=== PATIENT | male | born 1940 | race Caucasian/White ===

== ENCOUNTER 2018-08-28 17:20 | Inpatient (IN) ==
--- NOTE | 2018-08-29 00:02 | P.HPCC ---
History of Present Illness Primary Care Physician: Chano Painting History of Present Illness: 77-year-old gentleman with a known history of systolic congestive heart failure presented to emergency room at [facility] August 06, 2018 with complaints of palpitation and shortness of breath. Upon arrival to emergency room there he was found to be in A. fib with RVR. His heart rate was in 130s, he was given 1 time dose of IV diltiazem with significant improvement in his overall heart rate. He was again found to be in the acute on chronic congestive heart failure. He was given a dose of IV Lasix with improvement of his breathing but continued to require some oxygen support and subsequently been admitted to the hospital for additional evaluation and management. He has a long-standing history of atrial fibrillation on Coumadin. His echocardiogram showed ejection fraction of 30-35% with severe aortic stenosis and moderate MR. His hospital course was complicated with acute kidney injury, bradycardia, cardiogenic shock, respiratory failure requiring intubation, and the shock liver. He had a angiogram of his coronaries on 08/13 that showed no significant coronary disease. Apparently the patient became severely bradycardic in the Road Maker received atropine, followed by temporary intravenous pacemaker placement. He has arrived in the ICU at [facility] agitated and hypoxemic requiring intubation. Later on he underwent permanent pacemaker placement and successful weaning of the ventilation with extubation. However he has failed swallow evaluation and has been fed with Dobbhoff. 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 Sargent. Inpatient Certification: I certify that the inpatient services were ordered in accordance with Medicare regulations governing the order. This includes certification that hospital inpatient services are reasonable and necessary and in the case of services not specified as inpatient-only under 42 CFR 419.22(n), that they are appropriately provided as inpatient services in accordance to with the 2-midnight benchmark under 43 CFR 412.3(e) Review of Systems All other systems reviewed negative except as stated in HPI [facility] - Medical History Medical History: Medical History (Last Updated 08/29/18 @ 05:02 by George Daly MD) A-fib COPD (chronic obstructive pulmonary disease) Diabetes mellitus Nephrolithiasis Normal coronary angiogram Psoriasis - Surgical History Surgical History: Surgical History (Last Updated 08/29/18 @ 05:02 by George Daly MD) H/O cystoscopy - Family History Family History: Family History (Last Updated 08/29/18 @ 05:02 by George Daly MD) Other Family history normal Medications and Allergies Active Medications: Current Medications Acetaminophen (Tylenol) 650 mg PO Q6H PRN PRN Reason: PAIN 1-10 AND/OR FEVER >101F Al Hydroxide/Mg Hydroxide (Milk Of Magnesia Liq) 30 ml PO Q12H PRN PRN Reason: Mild Constipation Albuterol (Duoneb Neb (Prn)) 1 ampul NEB Q2HR NEB PRN PRN Reason: WHEEZING Aspirin (Ecotrin) 81 mg PO DAILY TONY Bisacodyl (Dulcolax Supp) 10 mg RECTAL DAILY PRN PRN Reason: SEVERE CONSITIPATION Chlorhexidine Gluconate (Chlorhexidine 2% Cloth) 3 pack TOPICAL DAILY@0400 TONY Stop: 09/03/18 03:59 Chlorhexidine Gluconate (Chlorhexidine 2% Cloth) 3 pack TOPICAL DAILY@0400 PRN PRN Reason: Extra cloth needed Stop: 09/03/18 03:59 Dextrose (D50w Vial) 50 ml IV.PUSH UNSCH PRN PRN Reason: PER HYPOGLYCEMIA PROTOCOL Diltiazem HCl (Cardizem Cd 24hr) 120 mg PO DAILY TONY Famotidine (Pepcid Pf Inj) 20 mg IV.PUSH Q12HR TONY Folic Acid (Folic Acid) 1 mg PO DAILY [facility] Furosemide (Lasix) 20 mg PO DAILY [facility] Glucagon (Glucagon Inj) 1 mg OTHER PRN PRN PRN Reason: for Hypoglycemia Protocol Sodium Chloride (Ns Inj) 1,000 mls @ 84 mls/hr IV.CONT .[id number] [facility] Last Admin: 08/29/18 02:34 Dose: 84 mls/hr Argatroban 250 mg/ Sodium (Chloride) 250 mls @ 0 mls/hr IV.CONT TITRATE PRN; Protocol PRN Reason: Per Protocol Insulin Aspart (Novolog Insulin Correctional Sugar Inj) 0 unit SQ Q6HR [facility]; Protocol Lactulose (Lactulose Liq) 30 ml PO DAILY PRN PRN Reason: SEVERE CONSITIPATION Lisinopril (Prinivil) 20 mg PO DAILY TONY Methotrexate (Rheumatrex) 15 mg PO UNSCH PRN PRN Reason: SEE LABEL COMMENTS Morphine Sulfate (Morphine Inj) 2 mg IV.PUSH Q2H PRN PRN Reason: PAIN SCALE 6 TO 10 Ondansetron HCl (Zofran Inj) 4 mg IV.PUSH Q6H PRN PRN Reason: NAUSEA OR VOMITING Senna/Docusate Sodium (Georgiana-Colace) 1 tab PO BID [facility] Sennosides (Senokot) 17.2 mg PO Q12H PRN PRN Reason: Moderate Constipation Sodium Chloride (Ns Flush) 2 ml IV.FLUSH BID TONY Sodium Chloride (Ns Flush) 2 ml IV.FLUSH PRN PRN PRN Reason: FLUSH AFTER USING IV ACCESS Vitamin D (Vitamin D3) 1,000 unit PO DAILY [facility] Allergies Allergy/AdvReac Type Severity Reaction Status Date / Time gemfibrozil Allergy Redness of Verified 08/29/18 00:15 Skin Home Medications Medication Instructions Recorded Confirmed Type aspirin 81 mg PO DAILY 08/29/18 08/29/18 History cholecalciferol (vitamin D3) 1,000 unit PO DAILY 08/29/18 08/29/18 History [Vitamin D3] diltiazem HCl 120 mg PO DAILY 08/29/18 08/29/18 History fenofibrate PO DAILY 08/29/18 History folic acid 1 mg PO DAILY 08/29/18 08/29/18 History furosemide 20 mg PO DAILY 08/29/18 08/29/18 History lisinopril 20 mg PO DAILY 08/29/18 08/29/18 History metformin 500 mg PO QPM 08/29/18 08/29/18 History methotrexate sodium 15 mg PO DAILY 08/29/18 08/29/18 History umeclidinium-vilanterol [Anoro 1 inh INHALATION Q24H 08/29/18 08/29/18 History Ellipta] warfarin 2.5 mg PO DAILY 08/29/18 08/29/18 History Results - Labs CBC & Chem 7: 08/29/18 02:20 08/29/18 02:20 Exam - Constitutional no acute distress - Routine HEENT Exam Head: Present: normocephalic, atraumatic Eye: Present: PERRL ENT: Present: mucous membranes moist - Routine Neck Exam Present: supple, full ROM. Absent: JVD, carotid bruit - Routine Chest/Breast/Axilla Exam Chest wall: Absent: tenderness - Routine Respiratory Exam Absent: accessory muscle use, rales, rhonchi - Routine Cardiovascular Exam Present: irregularly irregular - Routine Abdominal Exam Present: soft, normoactive bowel sounds. Absent: tenderness, distended - Routine Extremities Exam Absent: cyanosis, clubbing, edema - Routine Skin Exam Present: intact. Absent: cyanosis, erythema - Routine Neurological Exam Present: alert, moving all extremities Septic Shock Reassessment Septic shock perfusion: reassessment completed Caprini VTE Risk Assessment Caprini VTE Risk Assessment: Moderate/High Risk (score >= 2) Caprini Risk Assessment Model: Point Value = 1 Point Value = 2 Point Value = 3 Point Value = 5 Age 41-60 Minor surgery BMI > 25 kg/m2 Swollen legs Varicose veins or History of unexplained or recurrent spontaneous Oral contraceptives or hormone replacement Sepsis (< 1 month) Serious lung disease, including pneumonia (< 1 month) Abnormal pulmonary function Acute myocardial infarction Congestive heart failure (< 1 month) History of inflammatory bowel disease Medical patient at bed rest Age 61-74 Arthroscopic surgery Major open surgery (> 45 min) Laparoscopic surgery (> 45 min) Malignancy Confined to bed (> 72 hours) Immobilizing plaster cast Central venous access Age >= 75 History of VTE Family history of VTE Factor V Leiden Prothrombin [id number] Lupus anticoagulant Anticardiolipin antibodies Elevated serum homocysteine Heparin-induced thrombocytopenia Other congenital or acquired thrombophilia Stroke (< 1 month) Elective arthroplasty Hip, pelvis, or leg fracture Acute spinal cord injury (< 1 month) Prophylaxis Regimen: Total Risk Factor Score Risk Level Prophylaxis Regimen 0-1 Low Early ambulation 2 Moderate Order ONE of the following: *Sequential Compression Device (SCD) *Heparin 5000 units SQ BID 3-4 Higher Order ONE of the following medications: *Heparin 5000 units SQ TID *Enoxaparin/Lovenox 40 mg SQ daily (WT < 150 kg, CrCl > 30 mL/min) *Enoxaparin/Lovenox 30 mg SQ daily (WT < 150 kg, CrCl > 10-29 mL/min) *Enoxaparin/Lovenox 30 mg SQ BID (WT < 150 kg, CrCl > 30 mL/min) AND/OR *Sequential Compression Device (SCD) 5 or more Highest Order ONE of the following medications: *Heparin 5000 units SQ TID (Preferred with Epidurals) *Enoxaparin/Lovenox 40 mg SQ daily (WT < 150 kg, CrCl > 30 mL/min) *Enoxaparin/Lovenox 30 mg SQ daily (WT < 150 kg, CrCl > 10-29 mL/min) *Enoxaparin/Lovenox 30 mg SQ BID (WT < 150 kg, CrCl > 30 mL/min) AND *Sequential Compression Device (SCD) Assessment and Plan - Assessment and Plan Plan: Severe aortic stenosis -2D echo pending -Workup with further management per Dr. Arie Suresh fib -Rate controlled with diltiazem -Argatroban anticoagulation due to history of CARLEE Diabetes mellitus -Glucerna tube feeds -Insulin sliding scale CHF -Lasix -Lisinopril -Strict I's and O's Psoriasis -Methotrexate DVT GI prophylaxis -Teds SCDs -Argatroban -Pepcid Level 2
[2018-08-29] MEDS ORDERED: Morphine Sulfate Inj 2 MG/ML Vial IV.PUSH PRN (00:55)
[2018-08-29] MEDS ORDERED: Warfarin Consult Pharmacy OTHER PRN (00:55)
[2018-08-29] MEDS ORDERED: Bisacodyl 10 MG Supp RECTAL PRN (00:55)
[2018-08-29] MEDS ORDERED: Sod Chloride 0.9% Inj 1,000 ML IV.CONT SCH (01:00)
[2018-08-29] MEDS ORDERED: Dextrose 50% in Water 50 ML Vial IV.PUSH PRN (01:44)
[2018-08-29 02:41] LABS: Baso # (Auto) 0.1 th/mm3 (0.0-0.2); Eos # (Auto) 0.1 th/mm3 (0.0-0.4); Eos % (Auto) 1.6 % (0.0-4.0); Hematocrit 43.1 % (39.0-51.0); Lymph # (Auto) 1.1 th/mm3 (1.0-4.8); Lymph % (Auto) 12.1 % (9.0-44.0); Mean Corpuscular HGB Conc 32.6 % (32.0-36.0); Mean Corpuscular Hemoglobin 32.4 pg (27.0-34.0); Mean Corpuscular Volume 99.6 fL (80.0-100.0); Mean Platelet Volume 9.6 fL (7.0-11.0); Mono # (Auto) 0.6 th/mm3 (0.0-0.9); Mono % (Auto) 6.7 % (0.0-8.0); Neut % (Auto) 78.6 % (16.0-70.0); Platelet Count 284 th/mm3 (150-450); Red Blood Count 4.33 mil/mm3 (4.50-5.90); Red Cell Distribution Width 15.6 % (11.6-17.2); White Blood Count 8.9 th/mm3 (4.0-11.0)
[2018-08-29 02:53] LABS: Activated Partial Thrombo Time 45.5 sec (23.4-31.7); INR 1.9 Ratio
[2018-08-29 02:54] LABS: Alanine Aminotransferase 44 U/L (12-78); Albumin 2.4 g/dL (3.4-5.0); Anion Gap 8 meq/L (5-15); Aspartate Aminotransferase 41 U/L (15-37); Blood Urea Nitrogen 23 mg/dL (7-18); Calcium 7.8 mg/dL (8.5-10.1); Carbon Dioxide 25.9 meq/L (21.0-32.0); Chloride 112 meq/L (98-107); Glomerular Filtration Rate 76 mL/min (>89); Glucose,Random 79 mg/dL (74-106); Magnesium 2.1 mg/dL (1.5-2.5); Phosphorus 2.8 mg/dL (2.5-4.9); Potassium 3.5 meq/L (3.5-5.1); Sodium 146 meq/L (136-145)
[2018-08-29 02:56] LABS: Alkaline Phosphatase 137 U/L (45-117); Total Protein 6.6 g/dL (6.4-8.2)
[2018-08-29] MEDS ORDERED: Chlorhexidine Gluconate 2% 1 Pack (2 Cloths) TOPICAL PRN (04:00)
[2018-08-29] MEDS: Chlorhexidine Gluconate 2% 1 Pack (2 Cloths) TOPICAL SCH (05:59)
[2018-08-29] MEDS: Argatroban Inj 250 MG in Sodium Chlor 0.9% Inj 247.5 ML IV.CONT PRN (05:59)
[2018-08-29] MEDS: Insulin NovoLOG Aspart Correctional Sugar Inj SQ SCH ×3 (05:59→18:25)
--- NOTE | 2018-08-29 08:43 | XR ---
EXAM DATE: 08/29/2018 8:38 AM EST AGE/SEX: 77 years / Male INDICATIONS: Shortness of breath. CLINICAL DATA: This is the patient's initial encounter. Patient reports that signs and symptoms have been present for 1 day and indicates a pain score of Nonresponsive. MEDICAL/SURGICAL HISTORY: Chronic obstructive pulmonary disease. Diabetes. AFIB. Pacemaker. COMPARISON: No prior exams available for comparison. FINDINGS: Pacemaker on the left. I think there is a feeding tube evident however do not see the distal tip. The heart is enlarged. Mild interstitial edema is present Minimal consolidative changes left base. CONCLUSION: Cardiomegaly with probable mild congestive failure. I cannot see the tip of what I think is a feeding tube. Electronically signed by: Gabriel Quintanilla MD 08/29/2018 8:41 AM EST
[2018-08-29] MEDS ORDERED: METHOTREXATE SODIUM 15 MG PO SCH (09:00)
[2018-08-29] MEDS ORDERED: dilTIAZem CD 120 MG Capsule PO SCH (09:00)
[2018-08-29] MEDS: Lisinopril 20 MG Tablet PO SCH ×2 (09:39→12:35)
[2018-08-29] MEDS: Furosemide 20 MG Tablet PO SCH ×2 (09:40→12:34)
[2018-08-29] MEDS: Famotidine PF Inj 20 MG/2 ML Vial IV.PUSH SCH ×2 (09:40→21:50)
[2018-08-29] MEDS: Senna/Docusate Sodium 8.6/50 MG Tablet PO SCH ×3 (09:40→21:50)
[2018-08-29] MEDS: Folic Acid 1 MG Tablet PO SCH ×2 (09:40→12:34)
--- NOTE | 2018-08-29 11:31 | XR ---
EXAM DATE: 08/29/2018 11:18 AM EST AGE/SEX: 77 years / Male INDICATIONS: Verification of Dobbhoff feeding tube placement. Known renal calculi and abdominal aort ic aneurysm. CLINICAL DATA: This is the patient's initial encounter. Patient reports that signs and symptoms have been present for 1 day and indicates a pain score of Nonresponsive. MEDICAL/SURGICAL HISTORY: None. None. COMPARISON: [facility], CT ABDOMEN AND PELVIS W/O CONTRAST, 03/15/2016. . FINDINGS: A single AP view of the abdomen and pelvis was obtained and demonstrates gas and stool about the col on. There are multiple loops of nondilated air-containing small bowel. Bilateral renal calculi are pr esent right greater than left. There is a Dobbhoff type feeding tube in the distal stomach. A transve nous pacer is noted. The bony structures are intact. Atherosclerotic calcifications are present in th e aorta with calcification in the known aneurysm. This is not well delineated. CONCLUSION: 1. Dobbhoff feeding tube with the tip at the level of the distal stomach. 2. Visualization of the known abdominal aortic aneurysm. 3. Bilateral renal calculi. Electronically signed by: Flaquito Thompson MD 08/29/2018 11:30 AM EST
--- NOTE | 2018-08-29 12:13 | P.DIET ---
Nutritional Evaluation Type of nutrition evaluation: initial Nutrition consult regarding: Tube Feeding Screening comments: Transferred from [facility] on TF Objective - Diagnosis Aortic Stenosis - Objective % IBW: 97 (IBW = 166#) Body Weight Used for Calculations: Actual (73.5 kg) Energy Needs - Lower Range (kCal/kg): 28 Energy Needs - Upper Range (kCal/kg): 32 Lower Limit kCal/kg (kCals): 2,058 Upper Limit kCal/kg (kCals): 2,352 Lower Limit Protein Factor (Grams per Kg): 1.2 Upper Limit Protein Factor (Grams per Kg): 1.5 Lower Protein Needs (Protein): 88 Upper Protein Needs (Protein): 110 Dietitian Reviewed in Medical Record: Curent medications, Intake & Output, Labs , Medical history, Tube feeding Diet Order: NPO Assessment Assessment: Pt is at high nutrition risk 2' to his dependence on TFing. Current order is for Glucerna 1.5 @ 55 mls/hr. Recommend increase to 60 mls/hr to provide 2160 kcals, 119 gms protein and 1093 mls of free water. RD following. Recommendations: Glucerna 1.5 @ 60 mls/hr goal Dietitian to Monitor: Lab values, Intake & Output, Tube feeding tolerance, Weight change, Swallow recommendations, Medical course
--- NOTE | 2018-08-29 12:42 | P.CON ---
History of Present Illness Service: Cardiothoracic surgery Consult date: 08/29/18 Requesting Physician: Bernardo Sargent Reason for Consult: Severe aortic stenosis Primary Care Provider: Chano Painting Chief Complaint: Shortness of breath History of Present Illness: 77-year-old gentleman with a known history of congestive heart failure, nonischemic cardia myopathy, atrial fibrillation who was admitted to [facility] on August 05 with presenting complaints of progressive shortness of breath dizziness and weakness. He had a complicated and prolonged hospital course there with respiratory failure, cardiogenic shock, renal insufficiency necessitating intubation and mechanical ventilation as well as inotropic and pressor therapy. Additional workup in the hospital including cardiac catheter revealed no coronary artery disease however he had an intra-procedure cardiac arrest necessitating eventual permanent pacemaker placement. Following resolution of his acute events, he was extubated and was eventually transferred here to [facility] for further management of his aortic stenosis. I am now be consulted for surgical opinion regarding his aortic valvular pathology. At the present time he is hemodynamically stable however quite weak with poor memory retention and being fed via a Dobbhoff tube. Denies any specific chest pain or progressive shortness of breath. Review of Systems All other systems reviewed negative except as stated in HPI [facility] - History History Provided By: Patient, Significant Other - Medical History Medical History: Medical History (Last Updated 08/29/18 @ 05:02 by George Daly MD) A-fib COPD (chronic obstructive pulmonary disease) Diabetes mellitus Nephrolithiasis Normal coronary angiogram Psoriasis - Surgical History Surgical History: Surgical History (Last Updated 08/29/18 @ 05:02 by George Daly MD) H/O cystoscopy - Family History Family History: Family History (Last Updated 08/29/18 @ 05:02 by George Daly MD) Other Family history normal Medications and Allergies Active Medications: Active Medications Acetaminophen (Tylenol) 650 mg PO Q6H PRN PRN Reason: PAIN 1-10 AND/OR FEVER >101F Al Hydroxide/Mg Hydroxide (Milk Of Miranda [place]) 30 ml PO Q12H PRN PRN Reason: Mild Constipation Albuterol (Duoneb Neb (Prn)) 1 ampul NEB Q2HR NEB PRN PRN Reason: WHEEZING Aspirin (Ecotrin) 81 mg PO DAILY TONY Last Admin: 08/29/18 09:41 Dose: Not Given Bisacodyl (Dulcolax Supp) 10 mg RECTAL DAILY PRN PRN Reason: SEVERE CONSITIPATION Chlorhexidine Gluconate (Chlorhexidine 2% Cloth) 3 pack TOPICAL DAILY@0400 [facility] Stop: 09/03/18 03:59 Last Admin: 08/29/18 05:59 Dose: 3 pack Chlorhexidine Gluconate (Chlorhexidine 2% Cloth) 3 pack TOPICAL DAILY@0400 PRN PRN Reason: Extra cloth needed Stop: 09/03/18 03:59 Dextrose (D50w Vial) 50 ml IV.PUSH UNSCH PRN PRN Reason: PER HYPOGLYCEMIA PROTOCOL Diltiazem HCl (Cardizem Cd 24hr) 120 mg PO DAILY [facility] Last Admin: 08/29/18 11:41 Dose: Not Given Famotidine (Pepcid Pf Inj) 20 mg IV.PUSH Q12HR [facility] Last Admin: 08/29/18 09:40 Dose: 20 mg Folic Acid (Folic Acid) 1 mg PO DAILY [facility] Furosemide (Lasix) 20 mg PO DAILY [facility] Glucagon (Glucagon Inj) 1 mg OTHER PRN PRN PRN Reason: for Hypoglycemia Protocol Argatroban 250 mg/ Sodium (Chloride) 250 mls @ 0 mls/hr IV.CONT TITRATE PRN; Protocol PRN Reason: Per Protocol Last Titration: 08/29/18 09:54 Dose: 1.5 mcg/kg/min, 6.61 mls/hr Insulin Aspart (Novolog Insulin Correctional Sugar Inj) 0 unit SQ Q6HR [facility]; Protocol Last Admin: 08/29/18 05:59 Dose: Not Given Lactulose (Lactulose Liq) 30 ml PO DAILY PRN PRN Reason: SEVERE CONSITIPATION Lisinopril (Prinivil) 20 mg PO DAILY [facility] Methotrexate (Rheumatrex) 15 mg PO UNSCH PRN PRN Reason: SEE LABEL COMMENTS Morphine Sulfate (Morphine Inj) 2 mg IV.PUSH Q2H PRN PRN Reason: PAIN SCALE 6 TO 10 Ondansetron HCl (Zofran Inj) 4 mg IV.PUSH Q6H PRN PRN Reason: NAUSEA OR VOMITING Senna/Docusate Sodium (Georgiana-Colace) 1 tab PO BID [facility] Sennosides (Senokot) 17.2 mg PO Q12H PRN PRN Reason: Moderate Constipation Sodium Chloride (Ns Flush) 2 ml IV.FLUSH BID [facility] Last Admin: 08/29/18 11:41 Dose: 2 ml Sodium Chloride (Ns Flush) 2 ml IV.FLUSH PRN PRN PRN Reason: FLUSH AFTER USING IV ACCESS Vitamin D (Vitamin D3) 1,000 unit PO DAILY [facility] Allergies Allergy/AdvReac Type Severity Reaction Status Date / Time gemfibrozil Allergy Redness of Verified 08/29/18 00:15 Skin Home Medications Medication Instructions Recorded Confirmed Type aspirin 81 mg PO DAILY 08/29/18 08/29/18 History cholecalciferol (vitamin D3) 1,000 unit PO DAILY 08/29/18 08/29/18 History [Vitamin D3] diltiazem HCl 120 mg PO DAILY 08/29/18 08/29/18 History fenofibrate PO DAILY 08/29/18 History folic acid 1 mg PO DAILY 08/29/18 08/29/18 History furosemide 20 mg PO DAILY 08/29/18 08/29/18 History lisinopril 20 mg PO DAILY 08/29/18 08/29/18 History metformin 500 mg PO QPM 08/29/18 08/29/18 History methotrexate sodium 15 mg PO DAILY 08/29/18 08/29/18 History umeclidinium-vilanterol [Anoro 1 inh INHALATION Q24H 08/29/18 08/29/18 History Ellipta] warfarin 2.5 mg PO DAILY 08/29/18 08/29/18 History Physical Exam Vital signs: Vital Signs 08/28/18 22:00 08/28/18 23:00 08/29/18 03:47 Temperature 98 F Pulse Rate 80 81 81 Respiratory Rate 18 Blood Pressure 109/65 Pulse Oximetry 08/29/18 04:00 08/29/18 04:42 08/29/18 08:12 Temperature 98.4 F 98.2 F Pulse Rate 80 84 Respiratory Rate 18 18 Blood Pressure 122/90 117/87 Pulse Oximetry 93 L 97 08/29/18 10:19 Temperature Pulse Rate 79 Respiratory Rate Blood Pressure Pulse Oximetry Intake & Output 08/28/18 08/29/18 08/29/18 18:59 06:59 18:59 Intake Total 295 / 295 5 / 5 Output Total 330 / 330 Balance -35 / -35 5 / 5 Weight 73.5 kg Intake: IV 295 / 295 5 / 5 NS Inj 1,000 ML @ 84 mls/hr IV. 295 / 295 5 / 5 CONT .[id number] [facility] Rx#:[id number] Oral 0 / 0 Output: Urine Amount (Catheter) 330 / 330 Indwelling Urethral Catheter 330 / 330 Other: # Bowel Movements 0 Weight On Admission 73.5 kg - Constitutional no acute distress - Routine HEENT Exam Head: Present: normocephalic, atraumatic Eye: Present: EOMI, PERRL ENT: Present: mucous membranes moist Comments: Nasogastric feeding tube in place - Routine Neck Exam Present: supple, full ROM. Absent: JVD, carotid bruit, lymphadenopathy - Routine Respiratory Exam Present: CTA bilaterally, rales. Absent: accessory muscle use - Routine Cardiovascular Exam Present: S1, S2, murmur, irregularly irregular. Absent: gallop, rubs, JVD - Detailed Cardiovascular Exam: Murmur 1 Type: Present: holosystolic Location: Present: right sternal border Characteristics: Present: crescendo - Routine Abdominal Exam Present: soft, normoactive bowel sounds. Absent: tenderness, distended, rebound , guarding - Routine Extremities Exam Present: edema, full ROM, pulses intact, normal capillary refill. Absent: cyanosis, clubbing, calf tenderness - Routine Skin Exam Present: intact. Absent: cyanosis, erythema - Routine Neurological Exam Present: alert, oriented X3, CN II-XII intact, moving all extremities. Absent: sensory deficit, motor deficit - Detailed Neurological Exam: Coma Scale Eye Opening: Spontaneous Verbal Response: Oriented - Routine Psychiatric Exam Present: normal affect, normal thought process - Urinary Catheter Management Indwelling Urethral Catheter Cath placed during this visit: no Results - Labs CBC & Chem 7: 08/29/18 02:20 08/29/18 02:20 Labs: Laboratory Results - last 24 hr 08/28/18 08/29/18 08/29/18 23:56 02:20 02:20 WBC 8.9 RBC 4.33 L Hgb 14.0 Hct 43.1 MCV 99.6 MCH 32.4 MCHC 32.6 RDW 15.6 Plt Count 284 MPV 9.6 Neut % (Auto) 78.6 H Lymph % (Auto) 12.1 Todd % (Auto) 6.7 Eos % (Auto) 1.6 Baso % (Auto) 1.0 Neut # (Auto) 7.0 Lymph # (Auto) 1.1 Todd # (Auto) 0.6 Eos # (Auto) 0.1 Baso # (Auto) 0.1 WBC Differential . Differential Comment Auto diff final PT 19.0 H INR 1.9 APTT 45.5 H Sodium Potassium Chloride Carbon Dioxide Anion Gap BUN Creatinine Estimated GFR POC Glucose 75 Random Glucose Calcium Phosphorus Magnesium Total Bilirubin AST ALT Alkaline Phosphatase B-Natriuretic Peptide Total Protein Albumin 08/29/18 08/29/18 08/29/18 02:20 02:20 05:46 WBC RBC Hgb Hct MCV MCH MCHC RDW Plt Count MPV Neut % (Auto) Lymph % (Auto) Todd % (Auto) Eos % (Auto) Baso % (Auto) Neut # (Auto) Lymph # (Auto) Todd # (Auto) Eos # (Auto) Baso # (Auto) WBC Differential Differential Comment PT INR APTT Sodium 146 H Potassium 3.5 Chloride 112 H Carbon Dioxide 25.9 Anion Gap 8 BUN 23 H Creatinine 0.96 Estimated GFR 76 L POC Glucose 78 Random Glucose 79 Calcium 7.8 L Phosphorus 2.8 Magnesium 2.1 Total Bilirubin 1.4 H AST 41 H ALT 44 Alkaline Phosphatase 137 H B-Natriuretic Peptide 684 H Total Protein 6.6 Albumin 2.4 L 08/29/18 08:29 WBC RBC Hgb Hct MCV MCH MCHC RDW Plt Count MPV Neut % (Auto) Lymph % (Auto) Todd % (Auto) Eos % (Auto) Baso % (Auto) Neut # (Auto) Lymph # (Auto) Todd # (Auto) Eos # (Auto) Baso # (Auto) WBC Differential Differential Comment PT INR APTT 47.8 H Sodium Potassium Chloride Carbon Dioxide Anion Gap BUN Creatinine Estimated GFR POC Glucose Random Glucose Calcium Phosphorus Magnesium Total Bilirubin AST ALT Alkaline Phosphatase B-Natriuretic Peptide Total Protein Albumin - Imaging Impressions Chest X-Ray 08/29/18 00:00 CONCLUSION: Cardiomegaly with probable mild congestive failure. I cannot see the tip of what I think is a feeding tube. Abdomen X-Ray 08/29/18 09:56 CONCLUSION: 1. Dobbhoff feeding tube with the tip at the level of the distal stomach. 2. Visualization of the known abdominal aortic aneurysm. 3. Bilateral renal calculi. Assessment and Plan - Assessment (1) Severe aortic stenosis Code(s): I35.0 - Nonrheumatic aortic (valve) stenosis Status: Acute (2) Congestive heart failure Code(s): I50.9 - Heart failure, unspecified Status: Acute (3) Chronic kidney disease Code(s): N18.9 - Chronic kidney disease, unspecified Status: Acute (4) COPD (chronic obstructive pulmonary disease) Code(s): J44.9 - Chronic obstructive pulmonary disease, unspecified Status: Acute (5) Atrial fibrillation Code(s): I48.91 - Unspecified atrial fibrillation Status: Acute - Plan The patient was examined and the chart and pertinent studies reviewed on 2017. The clinical and ECHO findings were discussed in detail with the patient and his . Therapeutic options available including TAVR versus SAVR was discussed. I agree that he will maximally benefit from TAVR given his frailty and significant medical comorbidities. The risks, complications including but not limited to bleeding, infection, stroke, myocardial injury and , and benefits of the procedure were discussed in details and all questions answered. The patient understands the provided information and agrees to proceed with the planned operation. Proceed with TAVR. Thank you allowing me to participate in the care of this patient.
[2018-08-29] MEDS: dilTIAZem 30 MG Tablet PO SCH ×3 (13:48→21:50)
[2018-08-29 14:29] LABS: Bacteria,Urine Rare /hpf; Bilirubin,Urine Negative (Negative); Clarity,Urine Clear (Clear); Color,Urine Amber (Yellw/Straw); Glucose,Urine (UA) Negative (Negative); Leukocyte Esterase,Urine Small (Negative); Nitrite,Urine Negative (Negative); Specific Gravity,Urine 1.014 (1.002-1.035)
--- NOTE | 2018-08-29 14:40 | ECHRPT ---
Indication: ATRIAL FIB/FLUTTER CONCLUSIONS The left ventricular systolic function is severely reduced with an estimated ejection fraction in th e range of 20-25%. Mild concentric left ventricular hypertrophy. Normal left ventricular size. A pacemaker wire is noted. The left atrial size is mildly dilated. There is a pacemaker wire present in the right atrial cavity. Moderate mitral valve regurgitation. Mild mitral annular calcification. Diffuse calcification of the aortic valve. Trace aortic valve regurgitation. Aortic valve mean gradient is 15.2 mmHg. Low gradient aortic valve stenosis with dimensionless index of 0.18 Aortic valve area is 0.59 cm. There is moderate tricuspid regurgitation. The estimated pulmonary arterial pressure is 40.9 mmHg. BP: / HR: Rhythm: Sinus MEASUREMENTS (Male / Female) Normal Values Technical Quality:Fair 2D ECHO LV Diastolic Diameter PLAX 5.7 cm 4.2 - 5.9 / 3.9 - 5.3 cm LV Systolic Diameter PLAX 5.2 cm IVS Diastolic Thickness 1.1 cm 0.6 - 1.0 / 0.6 - 0.9 cm LVPW Diastolic Thickness 1.1 cm 0.6 - 1.0 / 0.6 - 0.9 cm LV Relative Wall Thickness 0.4 RV Internal Dim ED PLAX 2.9 cm LVOT Diameter 2.0 cm Aortic Root Diameter 3.1 cm LA Systolic Diameter LX 3.9 cm 3.0 - 4.0 / 2.7 - 3.8 cm LA Volume Index 54.2 cm/m 16 - 28 cm/m DOPPLER AV Peak Velocity 262.6 cm/s AV Peak Gradient 27.6 mmHg AV Mean Gradient 15.2 mmHg AV Velocity Time Integral 47.2 cm LVOT Peak Velocity 50.0 cm/s LVOT Peak Gradient 1.0 mmHg LVOT Velocity Time Integral 8.8 cm AV Area Cont Eq vti 0.6 cm AV Area Cont Eq pk 0.6 cm Mitral E Point Velocity 89.6 cm/s LV E' Lateral Velocity 6.0 cm/s Mitral E to LV E' Lateral Ratio 14.8 LV E' Septal Velocity 4.9 cm/s Mitral E to LV E' Septal Ratio 18.4 TR Peak Velocity 278.0 cm/s TR Peak Gradient 30.9 mmHg Right Atrial Pressure 10.0 mmHg Pulmonary Artery Systolic Pressu 40.9 mmHg Right Ventricular Systolic Press 40.9 mmHg PV Peak Velocity 30.1 cm/s PV Peak Gradient 0.4 mmHg FINDINGS LEFT VENTRICLE The left ventricular systolic function is severely reduced with an estimated ejection fraction in th e range of 20-25%. Mild concentric left ventricular hypertrophy. Normal left ventricular size. RIGHT VENTRICLE Normal right ventricular size and systolic function. A pacemaker wire is noted. LEFT ATRIUM The left atrial size is mildly dilated. RIGHT ATRIUM The right atrial size is normal. There is a pacemaker wire present in the right atrial cavity. ATRIAL SEPTUM The interatrial septum not well visualized. AORTA The aortic root and proximal ascending aorta are not well visualized. MITRAL VALVE Moderate mitral valve regurgitation. Mild mitral annular calcification. AORTIC VALVE Diffuse calcification of the aortic valve. Trace aortic valve regurgitation. Aortic valve mean gradient is 15.2 mmHg. Aortic valve area is 0.59 cm. TRICUSPID VALVE There is moderate tricuspid regurgitation. The estimated pulmonary arterial pressure is 40.9 mmHg. PULMONARY VALVE No pulmonary valve regurgitation or stenosis. VESSELS The inferior vena cava was not well visualized. PERICARDIUM No pericardial effusion. Bernardo Sargent MD, FACC (Electronically Signed) Final Date:29 August 2018 13:57
--- NOTE | 2018-08-29 14:54 | P.CONCA ---
History of Present Illness Service: Cardiology Consult date: 08/29/18 Reason for Consult: Severe aortic valve stenosis Primary Care Provider: [employer] Chief Complaint: Shortness of breath History of Present Illness: This is a 77-year-old male with complicated hospital course. Patient initially presented to [facility] back on August 06, 2018 with symptoms of shortness of breath and palpitations. Patient underwent cardiac catheterization and rapid decompensation. At that time transthoracic echocardiogram performed on August 07, 2018 showed an ejection fraction between 30 and 35% and severe aortic valve stenosis with moderate mitral and tricuspid regurgitation. Patient was transferred urgently to Dr. Bebeto Benitez cardiothoracic surgeon at [facility]. Patient clinically worsened and developed cardiogenic shock along with atrial fibrillation rapid ventricular rate followed by tachycardia bradycardia syndrome. Patient was initiated on amiodarone continuous drip. Patient developed acute renal failure in addition to shock liver. Patient had a coronary angiogram on August 13, 2018 that apparently showed mild to moderate nonobstructive coronary artery disease. Patient was taken to the operating room for a biventricular implantable cardioverter defibrillator by Dr. Samlon on August 17, 2018. Patient was intubated on pressors during majority of his complicated long hospital course. Patient was followed by neurology for encephalopathy, infectious disease for urinary tract infection, and hematology for thrombocytopenia while at [facility]. Patient was then extubated on August 15, 2018. Patient had to be reintubated on August 17, 2018 secondary to failure to respond to BiPAP along with prolonged apneic spells and increasing pulmonary edema. Infectious disease was following and had the patient on Ceftaroline and fluconazole, but completed a 14-day course. Patient then slowly developed worsening thrombocytopenia. Heparin-induced thrombocytopenia antibody was positive. Patient underwent computed tomographic angiography on August 24, 2018 in anticipation of possible transcatheter aortic valve replacement. Results of that study showed a small burden left upper lobe pulmonary emboli in the segmental and subsegmental arteries. No right ventricular heart strain. There was a small/moderate bilateral pleural effusions. There was a right middle lobe pulmonary nodule which was unchanged compared to 2009. Patient was converted to Argatroban drip. Patient then clinically showed improvement and was extubated. Patient was no longer on pressor support. Patient was alert and oriented x2. Patient was still quite weak and needed additional recovery time. I had a lengthy discussion with the family and we elected to transfer to [facility] for further evaluation of transcatheter aortic valve replacement versus surgical aortic valve replacement. Review of Systems All other systems reviewed negative except as stated in [facility] - History History Provided By: Patient, Significant Other - Medical History Medical History: Medical History (Last Updated 08/29/18 @ 14:43 by Bernardo Sargent MD) A-fib Acute systolic (congestive) heart failure COPD (chronic obstructive pulmonary disease) Diabetes mellitus Heparin induced thrombocytopenia (HIT) Mild CAD Nephrolithiasis Normal coronary angiogram Psoriasis Pulmonary embolism Severe calcific aortic valve stenosis Urinary tract infection - Surgical History Surgical History: Surgical History (Last Reviewed 08/29/18 @ 12:52 by Abhilash Garduno) H/O cystoscopy - Family History Family History: Family History (Last Updated 08/29/18 @ 05:02 by George Daly MD) Other Family history normal Medications and Allergies Active Medications: Active Medications Acetaminophen (Tylenol) 650 mg PO Q6H PRN PRN Reason: PAIN 1-10 AND/OR FEVER >101F Al Hydroxide/Mg Hydroxide (Milk Of Miranda Jj) 30 ml PO Q12H PRN PRN Reason: Mild Constipation Albuterol (Duoneb Neb (Prn)) 1 ampul NEB Q2HR NEB PRN PRN Reason: WHEEZING Aspirin (Ecotrin) 81 mg PO DAILY [facility] Last Admin: 08/29/18 09:41 Dose: Not Given Bisacodyl (Dulcolax Supp) 10 mg RECTAL DAILY PRN PRN Reason: SEVERE CONSITIPATION Chlorhexidine Gluconate (Chlorhexidine 2% Cloth) 3 pack TOPICAL DAILY@0400 [facility] Stop: 09/03/18 03:59 Last Admin: 08/29/18 05:59 Dose: 3 pack Chlorhexidine Gluconate (Chlorhexidine 2% Cloth) 3 pack TOPICAL DAILY@0400 PRN PRN Reason: Extra cloth needed Stop: 09/03/18 03:59 Dextrose (D50w Vial) 50 ml IV.PUSH UNSCH PRN PRN Reason: PER HYPOGLYCEMIA PROTOCOL Diltiazem HCl (Cardizem) 30 mg PO QID [facility] Last Admin: 08/29/18 13:48 Dose: 30 mg Famotidine (Pepcid Pf Inj) 20 mg IV.PUSH Q12HR [facility] Last Admin: 08/29/18 09:40 Dose: 20 mg Folic Acid (Folic Acid) 1 mg PO DAILY [facility] Last Admin: 12/12/18 12:34 Dose: 1 mg Furosemide (Lasix Inj) 40 mg IV.PUSH DAILY TONY Glucagon (Glucagon Inj) 1 mg OTHER PRN PRN PRN Reason: for Hypoglycemia Protocol Argatroban 250 mg/ Sodium (Chloride) 250 mls @ 0 mls/hr IV.CONT TITRATE PRN; Protocol PRN Reason: Per Protocol Last Titration: 08/29/18 09:54 Dose: 1.5 mcg/kg/min, 6.61 mls/hr Insulin Aspart (Novolog Insulin Correctional Sugar Inj) 0 unit SQ Q6HR [facility]; Protocol Last Admin: 08/29/18 12:33 Dose: Not Given Lactulose (Lactulose Liq) 30 ml PO DAILY PRN PRN Reason: SEVERE CONSITIPATION Lisinopril (Prinivil) 20 mg PO DAILY [facility] Last Admin: 08/29/18 12:35 Dose: 20 mg Methotrexate (Rheumatrex) 15 mg PO UNSCH PRN PRN Reason: SEE LABEL COMMENTS Morphine Sulfate (Morphine Inj) 2 mg IV.PUSH Q2H PRN PRN Reason: PAIN SCALE 6 TO 10 Ondansetron HCl (Zofran Inj) 4 mg IV.PUSH Q6H PRN PRN Reason: NAUSEA OR VOMITING Senna/Docusate Sodium (Georgiana-Colace) 1 tab PO BID [facility] Last Admin: 08/29/18 12:35 Dose: 1 tab Sennosides (Senokot) 17.2 mg PO Q12H PRN PRN Reason: Moderate Constipation Sodium Chloride (Ns Flush) 2 ml IV.FLUSH BID [facility] Last Admin: 08/29/18 11:41 Dose: 2 ml Sodium Chloride (Ns Flush) 2 ml IV.FLUSH PRN PRN PRN Reason: FLUSH AFTER USING IV ACCESS Vitamin D (Vitamin D3) 1,000 unit PO DAILY [facility] Last Admin: 08/29/18 12:34 Dose: 1,000 unit Allergies Allergy/AdvReac Type Severity Reaction Status Date / Time gemfibrozil Allergy Redness of Verified 08/29/18 00:15 Skin Home Medications Medication Instructions Recorded Confirmed Type aspirin 81 mg PO DAILY 08/29/18 08/29/18 History cholecalciferol (vitamin D3) 1,000 unit PO DAILY 08/29/18 08/29/18 History [Vitamin D3] diltiazem HCl 120 mg PO DAILY 08/29/18 08/29/18 History fenofibrate PO DAILY 08/29/18 History folic acid 1 mg PO DAILY 08/29/18 08/29/18 History furosemide 20 mg PO DAILY 08/29/18 08/29/18 History lisinopril 20 mg PO DAILY 08/29/18 08/29/18 History metformin 500 mg PO QPM 08/29/18 08/29/18 History methotrexate sodium 15 mg PO DAILY 08/29/18 08/29/18 History umeclidinium-vilanterol [Anoro 1 inh INHALATION Q24H 08/29/18 08/29/18 History Ellipta] warfarin 2.5 mg PO DAILY 08/29/18 08/29/18 History Exam Vital signs: Vital Signs 08/28/18 22:00 08/28/18 23:00 08/29/18 03:47 Temperature 98 F Pulse Rate 80 81 81 Respiratory Rate 18 Blood Pressure 109/65 Pulse Oximetry 08/29/18 04:00 08/29/18 04:42 08/29/18 07:13 Temperature 98.4 F Pulse Rate 80 Respiratory Rate 18 Blood Pressure 122/90 Pulse Oximetry 93 L 97 08/29/18 08:12 08/29/18 10:19 08/29/18 12:00 Temperature 98.2 F 98.2 F Pulse Rate 84 79 90 Respiratory Rate 18 18 Blood Pressure 117/87 126/84 Pulse Oximetry 97 95 Intake & Output 08/28/18 08/29/18 08/29/18 18:59 06:59 18:59 Intake Total 295 / 295 5 / 5 Output Total 330 / 330 Balance -35 / -35 5 / 5 Weight 73.5 kg Intake: IV 295 / 295 5 / 5 NS Inj 1,000 ML @ 84 mls/hr IV. 295 / 295 5 / 5 CONT .[id number] [facility] Rx#:[id number] Oral 0 / 0 Output: Urine Amount (Catheter) 330 / 330 Indwelling Urethral Catheter 330 / 330 Other: # Bowel Movements 0 Weight On Admission 73.5 kg - Constitutional no acute distress - Routine HEENT Exam Head: Present: normocephalic Eye: Present: EOMI, PERRL ENT: Present: mucous membranes moist - Routine Neck Exam Present: JVD - Routine Respiratory Exam Present: CTA bilaterally, rhonchi - Routine Cardiovascular Exam Present: RRR, murmur - Routine Abdominal Exam Present: soft, normoactive bowel sounds - Routine Extremities Exam Present: pulses intact. Absent: edema - Routine Skin Exam Absent: erythema - Routine Neurological Exam Present: alert, CN II-XII intact. Absent: sensory deficit, motor deficit Results 08/29/18 02:20 08/29/18 02:20 Cardiac Enzymes 08/29/18 08/29/18 Range/Units 02:20 02:20 AST 41 H (15-37) U/L B-Natriuretic Peptide 684 H (0-100) pg/mL Coagulation 08/29/18 08/29/18 08/29/18 Range/Units 02:20 02:20 08:29 PT 19.0 H (9.8-11.6) sec APTT 45.5 H 47.8 H (23.4-31.7) sec B-Natriuretic Peptide 684 H (0-100) pg/mL 08/29/18 Range/Units 11:30 PT (9.8-11.6) sec APTT 78.6 H D (23.4-31.7) sec B-Natriuretic Peptide (0-100) pg/mL CBC 08/29/18 Range/Units 02:20 WBC 8.9 (4.0-11.0) th/mm3 RBC 4.33 L (4.50-5.90) mil/mm3 Hgb 14.0 (13.0-17.0) gm/dL Hct 43.1 (39.0-51.0) % Plt Count 284 (150-450) th/mm3 Neut # (Auto) 7.0 (1.8-7.7) th/mm3 Lymph # (Auto) 1.1 (1.0-4.8) th/mm3 Burnet # (Auto) 0.6 (0.0-0.9) th/mm3 Eos # (Auto) 0.1 (0.0-0.4) th/mm3 Baso # (Auto) 0.1 (0.0-0.2) th/mm3 Comprehensive Metabolic Panel 08/29/18 Range/Units 02:20 Sodium 146 H (136-145) meq/L Potassium 3.5 (3.5-5.1) meq/L Chloride 112 H (98-107) meq/L Carbon Dioxide 25.9 (21.0-32.0) meq/L BUN 23 H (7-18) mg/dL Creatinine 0.96 (0.60-1.30) mg/dL Calcium 7.8 L (8.5-10.1) mg/dL AST 41 H (15-37) U/L ALT 44 (12-78) U/L Alkaline Phosphatase 137 H (45-117) U/L Total Protein 6.6 (6.4-8.2) g/dL Albumin 2.4 L (3.4-5.0) g/dL Intake and Output 08/28/18 08/29/18 08/29/18 22:59 06:59 14:59 Intake Total 295 / 295 5 / 5 Output Total 330 / 330 Balance -35 / -35 5 / 5 Intake: IV 295 / 295 5 / 5 NS Inj 1,000 ML @ 84 mls/hr IV. 295 / 295 5 / 5 CONT .[id number] [facility] Rx#:[id number] Oral 0 / 0 Output: Urine Amount (Catheter) 330 / 330 Indwelling Urethral Catheter 330 / 330 Other: # Bowel Movements 0 Weight 73.5 kg Weight On Admission 73.5 kg - Imaging and Cardiology Imaging: Impressions Chest X-Ray 08/29/18 00:00 CONCLUSION: Cardiomegaly with probable mild congestive failure. I cannot see the tip of what I think is a feeding tube. Abdomen X-Ray 08/29/18 09:56 CONCLUSION: 1. Dobbhoff feeding tube with the tip at the level of the distal stomach. 2. Visualization of the known abdominal aortic aneurysm. 3. Bilateral renal calculi. EKG interpretations - Dysrhythmias Supraventricular dysrhythmia: atrial fibrillation - Blocks, axis, hypertrophy, ST abn AV and intraventricular conduction: right bundle branch block (fixed/ intermittent, complete/incomplete) Repolarization changes or abnormalities: nonspecific abnormality, ST segment, and/or T wave - CO, pacemaker, normal Pacemaker: ventricular pacing w/capture (except when refractory) Assessment and Plan - Plan Severe aortic valve stenosis Patient is going to need additional time for clinical recovery. Patient is extubated but has not ambulated yet. I would like to try to get the patient stronger. Patient was evaluated by cardiothoracic surgery at [facility], Dr. Bebeto Benitez, and felt to be a better transcatheter aortic valve replacement candidate. We will consult cardiothoracic surgery here for second opinion. We will decide timing for transcatheter aortic valve replacement. Acute systolic congestive heart failure Clinically is much improved compared to his prolonged hospitalization at [facility]. His oxygen saturation is good on room air. He does have quite a bit of rhonchi on examination in addition of bilateral pleural effusions noted on most recent computed tomography scan performed at [facility]. We will gently diurese him with Lasix and monitor creatinine closely. We will start him on a very low-dose of angiotensin-converting enzyme inhibitor. Atrial fibrillation Patient has tachycardia bradycardia syndrome. Continue low-dose Cardizem. When able to swallow we will convert to long-acting formulation. Patient will need long-term anticoagulation. Cardiomyopathy, nonischemic Cardiac catheterization showed only mild nonobstructive coronary artery disease. Patient does have moderate mitral regurgitation, but there is significant afterload with his aortic valve stenosis which will hopefully improve after valve replacement. Patient already has biventricular implantable cardioverter defibrillator in place. Pulmonary embolism Patient will need at least 3-6 months of anticoagulation with Coumadin. I suspect patient will likely be on lifelong anticoagulation secondary to atrial fibrillation and increased CHADS-VASc score. For now we will continue intravenous anticoagulation until his procedure. Heparin-induced thrombocytopenia Patient is on her gastric band drip. Patient has some hematuria. Patient was followed by hematology at [facility]. Will consult hematology for any further recommendations. Patient did have a small subsegmental pulmonary embolism noted on computed tomography scan, but if continued hematuria, we may need to discontinue intravenous anticoagulation. Deconditioning Physical therapy consultation Swallow evaluation Up with assist Hoping if continued clinical recovery, transcatheter aortic valve replacement in the next week or so.
--- NOTE | 2018-08-29 19:11 | MB ---
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 HISTORY OF PRESENT ILLNESS: This is a 77-year-old gentleman with a history of multiple medical problems and a complicated recent hospital course, admitted with shortness of breath and known to have severe aortic stenosis. He is being evaluated for TAVR procedure. Currently, he was asked to evaluate him for a history of HIT diagnosed in [facility] recently and put on argatroban. Mr. Hooper is seen in the room 460 and is mildly disoriented. He thinks this is 1981. He knows that he is in [place], but he could not say which hospital. He could not give me much history. Most of the history is obtained from the patient and by discussing with Dr. Cornelius. He is 77 years old and had been admitted to [facility] on 08/06/2018 with shortness of breath and palpitations. He underwent a cardiac catheterization, which caused him to have rapid decompensation and TTE at that time showed ejection fraction of 30-35% with severe aortic valve stenosis and mild to moderate tricuspid regurgitation. The patient was evaluated by cardiac surgeon, Bebeto Benitez at [facility], and he subsequently developed severe cardiogenic shock with atrial fibrillation and rapid ventricular rate, followed by tachybrady syndrome. He was put on amiodarone drip and during the hospitalization, he was also put on heparin for anticoagulation and he developed thrombocytopenia, dropping down to the 30,000 range and hence he was evaluated for HIT and ADELITA was positive in [facility], hence he was put on argatroban. Subsequently, he also had biventricular implantable cardiac defibrillator placed. During his intubation, he also developed encephalopathy and had sepsis and renal failure. Subsequently, he was found to have a left upper lobe pulmonary embolus and his argatroban was continued. He was subsequently extubated and transferred to [place] for possible TAVR. REVIEW OF SYSTEMS: The patient could not give me any specific symptoms, but as mentioned, he is unable to answer specific questions and he is confused. PAST MEDICAL HISTORY: As above. He has a history of: 1. Atrial fibrillation. 2. Congestive heart failure. 3. COPD. 4. Diabetes. 5. HIT, as mentioned 6. Coronary artery disease. 7. Renal calculus. 8. Psoriasis. 9. Pulmonary embolism as mentioned. 10. Recent urinary tract infection. SURGICAL HISTORY: He had a cystoscopy while in [place]. MEDICATIONS: He is on: 1. Insulin. 2. Lisinopril. 3. Methotrexate for his psoriasis. 4. Morphine p.r.n. 5. Zofran p.r.n. 6. Vitamin D. 7. Folic acid. 8. Famotidine. 9. Argatroban. FAMILY HISTORY: Noncontributory. PHYSICAL EXAMINATION: GENERAL: Elderly gentleman, chronically ill-appearing, with evidence of recent weight loss. Disheveled and with evidence of mental status changes. VITAL SIGNS: Stable. He is afebrile. SKIN: Pallor present. Minimal bruising on the upper extremity than the lower extremities. No active bleeding from the nose or gums. G-tube without evidence of active bleeding. Urinary Hernandez catheter with a pink urine. HEENT: Without thrush. No tonsillar enlargement. Dry mucous membranes noted. Pallor present. No icterus. LYMPHATIC: No lymphadenopathy in the neck or axilla. NEUROLOGIC: Alert and responsive to questions in monosyllables and confused quite confused about the date, time, etc. grossly nonfocal. Moving all 4 extremities. No meningeal signs. NECK: No JVD. HEART: S1, S2, irregularly irregular with grade 3 systolic murmur, harsh, with no gallops or rubs. No distant heart sounds. LUNGS: Bilateral basal crackles and decreased air entry. No wheeze. ABDOMEN: Soft, nontender without palpable hepatosplenomegaly. EXTREMITIES: No edema or evidence of active DVTs. LABORATORY DATA: White count 8.9, hemoglobin 14, and platelets 284. PT/INR is 1.9, PTT 78.6 at 11:59 a.m. and 50.5 at 2359 is 41, ALT 44, alkaline phosphatase 137. BNP is 684. Urine positive for leukocyte esterase and innumerable RBCs rare bacteria reviewed available records from [place] starting 08/06/2018-08/13/2018 and case discussed with Dr. Sargent who was kind enough to go in to [facility] records electronically and we confirmed that the platelets dropped down to 30,000 with a normal hemoglobin and his heparin platelet antibody was positive for and also SI testing was positive. Hence, a diagnosis of acute was confirmed and placement was placed on argatroban. ASSESSMENT AND PLAN: A 77-year-old gentleman with multiple medical problems, currently with severe symptomatic aortic stenosis requiring a TAVR PROCEDURE: The patient with recent diagnosis of which IT and argatroban which is quite reasonable. He will be a candidate for Coumadin, and eventually, but since he is going for surgery would now to be placed. I plan to be continued on argatroban with PT/INR monitoring per pharmacy and would recommend switching over to Coumadin for the long-term use after the planned surgical procedure providing. He does not have any evidence of active bleeding in the preop as well as postop. Currently, his hemorrhage seems to be correct and his hematuria seems to be from a renal calculus, as well as urinary infection and that will need to be managed conservatively. If he has edith hematuria, he may need to be off of argatroban since his CBC needs to be followed up and see him in followup in the hospital on a regular basis and subsequently switched him over to Coumadin at an appropriate time after his surgery. This was discussed with Dr. Sargent and will be happy to followup in the hospital. MD MONIQUE Soto/akshat , 05:14 PM , 05:33 PM
--- NOTE | 2018-08-29 21:54 | ECG ---
Date Performed: 08/29/2018 Time Performed: 03:07:32 PTAGE: 77 years EKG: Demand paced rhythm Frequent PVC(s) Abnormal ECG NO PREVIOUS TRACING DOCTOR: Ag Cartwright Interpretating Date/Time 08/29/2018 21:53:25
[2018-08-30] MEDS: Insulin NovoLOG Aspart Correctional Sugar Inj SQ SCH ×4 (01:02→18:37)
--- NOTE | 2018-08-30 04:57 | XR ---
EXAM DATE: 08/30/2018 4:44 AM EST AGE/SEX: 77 years / Male INDICATIONS: Shortness of breath, possible pulmonary disease. CLINICAL DATA: This is the patient's subsequent encounter. Patient reports that signs and symptoms h ave been present for 2 days and indicates a pain score of 3/10. MEDICAL/SURGICAL HISTORY: Chronic obstructive pulmonary disease. Diabetes. A-fib. Pacemaker. COMPARISON: C, CHEST 1V SINGLE AP, 08/29/2018. . FINDINGS: Single AP view the chest. Right IJ central venous catheter and feeding tube remain in place. AICD rem ains in place. Decrease in left lower lung atelectasis. Cardiomediastinal silhouette unchanged. No ev idence of pneumothorax. CONCLUSION: Decreased left lower lung atelectasis. Electronically signed by: Avtar Corea MD 08/30/2018 4:56 AM EST
[2018-08-30 05:08] LABS: Hematocrit 40.8 % (39.0-51.0); Hemoglobin 13.8 gm/dL (13.0-17.0); Mean Corpuscular HGB Conc 33.9 % (32.0-36.0); Mean Corpuscular Hemoglobin 33.5 pg (27.0-34.0); Mean Corpuscular Volume 98.9 fL (80.0-100.0); Mean Platelet Volume 9.2 fL (7.0-11.0); Platelet Count 334 th/mm3 (150-450); Red Blood Count 4.13 mil/mm3 (4.50-5.90); Red Cell Distribution Width 15.8 % (11.6-17.2); White Blood Count 8.2 th/mm3 (4.0-11.0)
[2018-08-30 05:26] LABS: Albumin 2.6 g/dL (3.4-5.0); Anion Gap 6 meq/L (5-15); Aspartate Aminotransferase 46 U/L (15-37); Blood Urea Nitrogen 25 mg/dL (7-18); Calcium 8.2 mg/dL (8.5-10.1); Carbon Dioxide 26.1 meq/L (21.0-32.0); Chloride 114 meq/L (98-107); Glomerular Filtration Rate 76 mL/min (>89); Glucose,Random 114 mg/dL (74-106); Magnesium 2.2 mg/dL (1.5-2.5); Potassium 3.4 meq/L (3.5-5.1); Sodium 146 meq/L (136-145)
[2018-08-30 05:27] LABS: Alanine Aminotransferase 49 U/L (12-78)
[2018-08-30 05:30] LABS: Alkaline Phosphatase 190 U/L (45-117); Total Protein 6.9 g/dL (6.4-8.2)
[2018-08-30] MEDS: Chlorhexidine Gluconate 2% 1 Pack (2 Cloths) TOPICAL SCH (05:32)
--- NOTE | 2018-08-30 09:46 | P.PNCA ---
Subjective Interval history: Clinically looks much better today. Patient is much more coherent. Patient actually called his this morning to ask her when she was coming in to see him. Patient is eager to drink something. Nasogastric tube/feeding tube in place. Physical therapy saw him yesterday. Medications and Allergies Active Medications: Active Medications Acetaminophen (Tylenol) 650 mg PO Q6H PRN PRN Reason: PAIN 1-10 AND/OR FEVER >101F Al Hydroxide/Mg Hydroxide (Milk Of Miranda Liq) 30 ml PO Q12H PRN PRN Reason: Mild Constipation Albuterol (Duoneb Neb (Prn)) 1 ampul NEB Q2HR NEB PRN PRN Reason: WHEEZING Aspirin (Ecotrin) 81 mg PO DAILY [facility] Last Admin: 08/29/18 09:41 Dose: Not Given Bisacodyl (Dulcolax Supp) 10 mg RECTAL DAILY PRN PRN Reason: SEVERE CONSITIPATION Chlorhexidine Gluconate (Chlorhexidine 2% Cloth) 3 pack TOPICAL DAILY@0400 [facility] Stop: 09/03/18 03:59 Last Admin: 08/30/18 05:32 Dose: Not Given Chlorhexidine Gluconate (Chlorhexidine 2% Cloth) 3 pack TOPICAL DAILY@0400 PRN PRN Reason: Extra cloth needed Stop: 09/03/18 03:59 Dextrose (D50w Vial) 50 ml IV.PUSH UNSCH PRN PRN Reason: PER HYPOGLYCEMIA PROTOCOL Last Admin: 08/29/18 17:57 Dose: 50 ml Diltiazem HCl (Cardizem) 30 mg PO QID [facility] Last Admin: 08/29/18 21:50 Dose: 30 mg Famotidine (Pepcid Pf Inj) 20 mg IV.PUSH Q12HR [facility] Last Admin: 08/29/18 21:50 Dose: 20 mg Folic Acid (Folic Acid) 1 mg PO DAILY [facility] Last Admin: 08/29/18 12:34 Dose: 1 mg Furosemide (Lasix Inj) 40 mg IV.PUSH DAILY [facility] Last Admin: 08/29/18 14:43 Dose: 40 mg Glucagon (Glucagon Inj) 1 mg OTHER PRN PRN PRN Reason: for Hypoglycemia Protocol Argatroban 250 mg/ Sodium (Chloride) 250 mls @ 0 mls/hr IV.CONT TITRATE PRN; Protocol PRN Reason: Per Protocol Last Titration: 08/29/18 16:18 Dose: 1 mcg/kg/min, 4.41 mls/hr Insulin Aspart (Novolog Insulin Correctional Sugar Inj) 0 unit SQ Q6HR [facility]; Protocol Last Admin: 08/30/18 05:32 Dose: Not Given Lactulose (Lactulose Liq) 30 ml PO DAILY PRN PRN Reason: SEVERE CONSITIPATION Lisinopril (Prinivil) 20 mg PO DAILY [facility] Last Admin: 08/29/18 12:35 Dose: 20 mg Methotrexate (Rheumatrex) 15 mg PO [facility] Morphine Sulfate (Morphine Inj) 2 mg IV.PUSH Q2H PRN PRN Reason: PAIN SCALE 6 TO 10 Ondansetron HCl (Zofran Inj) 4 mg IV.PUSH Q6H PRN PRN Reason: NAUSEA OR VOMITING Senna/Docusate Sodium ([place]-Colace) 1 tab PO BID [facility] Last Admin: 08/29/18 21:50 Dose: 1 tab Sennosides (Senokot) 17.2 mg PO Q12H PRN PRN Reason: Moderate Constipation Sodium Chloride (Ns Flush) 2 ml IV.FLUSH BID [facility] Last Admin: 08/30/18 01:00 Dose: 2 ml Sodium Chloride (Ns Flush) 2 ml IV.FLUSH PRN PRN PRN Reason: FLUSH AFTER USING IV ACCESS Vitamin D (Vitamin D3) 1,000 unit PO DAILY [facility] Last Admin: 08/29/18 12:34 Dose: 1,000 unit Allergies Allergy/AdvReac Type Severity Reaction Status Date / Time gemfibrozil Allergy Redness of Verified 08/29/18 00:15 Skin Home Medications Medication Instructions Recorded Confirmed Type aspirin 81 mg PO DAILY 08/29/18 08/29/18 History cholecalciferol (vitamin D3) 1,000 unit PO DAILY 08/29/18 08/29/18 History [Vitamin D3] diltiazem HCl 120 mg PO DAILY 08/29/18 08/29/18 History fenofibrate PO DAILY 08/29/18 History folic acid 1 mg PO DAILY 08/29/18 08/29/18 History furosemide 20 mg PO DAILY 08/29/18 08/29/18 History lisinopril 20 mg PO DAILY 08/29/18 08/29/18 History metformin 500 mg PO QPM 08/29/18 08/29/18 History methotrexate sodium 15 mg PO FR 08/29/18 08/29/18 History umeclidinium-vilanterol [Anoro 1 inh INHALATION Q24H 08/29/18 08/29/18 History Ellipta] warfarin 2.5 mg PO DAILY 08/29/18 08/29/18 History Physical Exam Vital signs: Vital Signs 08/29/18 10:19 08/29/18 12:00 08/29/18 14:45 Temperature 98.2 F 98.2 F Pulse Rate 79 90 77 Respiratory Rate 18 18 Blood Pressure 126/84 126/84 Pulse Oximetry 95 98 08/29/18 15:00 08/29/18 16:00 08/29/18 17:00 Temperature 98.2 F Pulse Rate 84 81 80 Respiratory Rate 18 Blood Pressure 126/84 Pulse Oximetry 98 08/29/18 18:00 08/29/18 19:00 08/29/18 20:00 Temperature 98.5 F Pulse Rate 75 80 80 Respiratory Rate 18 Blood Pressure 109/68 Pulse Oximetry 98 08/29/18 21:00 08/29/18 22:00 08/29/18 23:00 Temperature Pulse Rate 80 80 80 Respiratory Rate Blood Pressure Pulse Oximetry 08/30/18 00:00 08/30/18 01:00 08/30/18 02:00 Temperature 97.7 F Pulse Rate 75 80 79 Respiratory Rate 18 Blood Pressure 112/65 Pulse Oximetry 97 08/30/18 03:00 08/30/18 04:00 08/30/18 05:00 Temperature 97.9 F Pulse Rate 79 75 79 Respiratory Rate 18 Blood Pressure 109/71 Pulse Oximetry 98 08/30/18 05:46 Temperature Pulse Rate 79 Respiratory Rate Blood Pressure Pulse Oximetry Intake & Output 08/29/18 08/30/18 08/30/18 18:59 06:59 18:59 Intake Total 5 / 5 Output Total 1100 / 1100 700 / 700 Balance -1095 / -1095 -700 / -700 Weight 72 kg Intake: IV 5 / 5 NS Inj 1,000 ML @ 84 mls/hr IV. 5 / 5 CONT .[id number] [facility] Rx#:[id number] Output: Urine Amount (Catheter) 1100 / 1100 700 / 700 Indwelling Urethral Catheter 1100 / 1100 700 / 700 Other: Date of Last Bowel Movement 08/30/18 # Incontinent Bowel Movements 1 - Constitutional no acute distress - Routine HEENT Exam Head: Present: normocephalic Eye: Present: PERRL ENT: Present: mucous membranes moist - Routine Neck Exam Absent: JVD - Routine Respiratory Exam Present: CTA bilaterally - Routine Cardiovascular Exam Present: RRR, murmur - Routine Abdominal Exam Present: soft, normoactive bowel sounds - Routine Extremities Exam Present: pulses intact. Absent: edema - Routine Skin Exam Absent: erythema - Routine Neurological Exam Present: oriented X3, CN II-XII intact. Absent: sensory deficit, motor deficit - Urinary Catheter Management Indwelling Urethral Catheter Cath placed during this visit: no Results 08/30/18 04:50 08/30/18 04:50 Cardiac Enzymes 08/29/18 08/29/18 08/30/18 Range/Units 02:20 02:20 04:50 AST 41 H 46 H (15-37) U/L B-Natriuretic Peptide 684 H (0-100) pg/mL Coagulation 08/29/18 08/29/18 08/29/18 Range/Units 02:20 02:20 08:29 PT 19.0 H (9.8-11.6) sec APTT 45.5 H 47.8 H (23.4-31.7) sec B-Natriuretic Peptide 684 H (0-100) pg/mL 08/29/18 08/29/18 08/30/18 Range/Units 11:30 16:15 04:50 PT (9.8-11.6) sec APTT 78.6 H D 50.5 H D 50.4 H (23.4-31.7) sec B-Natriuretic Peptide (0-100) pg/mL CBC 08/29/18 08/30/18 Range/Units 02:20 04:50 WBC 8.9 8.2 (4.0-11.0) th/mm3 RBC 4.33 L 4.13 L (4.50-5.90) mil/mm3 Hgb 14.0 13.8 (13.0-17.0) gm/dL Hct 43.1 40.8 (39.0-51.0) % Plt Count 284 334 (150-450) th/mm3 Neut # (Auto) 7.0 (1.8-7.7) th/mm3 Lymph # (Auto) 1.1 (1.0-4.8) th/mm3 [place] # (Auto) 0.6 (0.0-0.9) th/mm3 Eos # (Auto) 0.1 (0.0-0.4) th/mm3 Baso # (Auto) 0.1 (0.0-0.2) th/mm3 Comprehensive Metabolic Panel 08/29/18 08/30/18 Range/Units 02:20 04:50 Sodium 146 H 146 H (136-145) meq/L Potassium 3.5 3.4 L (3.5-5.1) meq/L Chloride 112 H 114 H (98-107) meq/L Carbon Dioxide 25.9 26.1 (21.0-32.0) meq/L BUN 23 H 25 H (7-18) mg/dL Creatinine 0.96 0.96 (0.60-1.30) mg/dL Calcium 7.8 L 8.2 L (8.5-10.1) mg/dL AST 41 H 46 H (15-37) U/L ALT 44 49 (12-78) U/L Alkaline Phosphatase 137 H 190 H (45-117) U/L Total Protein 6.6 6.9 (6.4-8.2) g/dL Albumin 2.4 L 2.6 L (3.4-5.0) g/dL Intake and Output 08/29/18 08/30/18 08/30/18 22:59 06:59 14:59 Output Total 1100 / 1100 700 / 700 Balance -1100 / -1100 -700 / -700 Output: Urine Amount (Catheter) 1100 / 1100 700 / 700 Indwelling Urethral Catheter 1100 / 1100 700 / 700 Other: Date of Last Bowel Movement 08/30/18 08/30/18 # Incontinent Bowel Movements 1 Weight 72 kg - Imaging and Cardiology Imaging: Impressions Chest X-Ray 08/29/18 00:00 CONCLUSION: Cardiomegaly with probable mild congestive failure. I cannot see the tip of what I think is a feeding tube. Abdomen X-Ray 08/29/18 09:56 CONCLUSION: 1. Dobbhoff feeding tube with the tip at the level of the distal stomach. 2. Visualization of the known abdominal aortic aneurysm. 3. Bilateral renal calculi. Chest X-Ray 08/30/18 06:00 CONCLUSION: Decreased left lower lung atelectasis. Assessment and Plan - Plan Severe aortic valve stenosis Appreciate second opinion from Dr. Zapata. Continue with physical rehabilitation. Will discuss timing for transcatheter aortic valve replacement. Potentially consider procedure next week. Patient would likely need physical rehabilitation as an inpatient following the procedure. Acute systolic congestive heart failure Severely reduced left ventricular systolic function, but clinically improving. Will convert angiotensin converting enzyme inhibitor to Entresto therapy. Atrial fibrillation Patient has tachycardia bradycardia syndrome. We will discontinue Cardizem and initiate low-dose beta-meg. Cardiomyopathy, nonischemic Cardiac catheterization showed only mild nonobstructive coronary artery disease. Patient does have moderate mitral regurgitation, but there is significant afterload with his aortic valve stenosis which will hopefully improve after valve replacement. Patient already has biventricular implantable cardioverter defibrillator in place. Pulmonary embolism Patient will need at least 3-6 months of anticoagulation with Coumadin. I suspect patient will likely be on lifelong anticoagulation secondary to atrial fibrillation and increased CHADS-VASc score. Continue intravenous anticoagulation until his procedure. 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 Discontinue Hernandez catheter. Patient will need transition to Coumadin following transcatheter aortic valve replacement. Deconditioning Physical therapy Swallow evaluation Up with assist Discontinue Hernandez catheter Transcatheter aortic valve replacement next week
[2018-08-30] MEDS: Senna/Docusate Sodium 8.6/50 MG Tablet PO SCH ×2 (10:06→21:42)
[2018-08-30] MEDS: Folic Acid 1 MG Tablet PO SCH (10:10)
[2018-08-30] MEDS: Famotidine PF Inj 20 MG/2 ML Vial IV.PUSH SCH ×2 (10:10→21:41)
[2018-08-30] MEDS: Lisinopril 20 MG Tablet PO SCH (10:36)
[2018-08-30] MEDS: dilTIAZem 30 MG Tablet PO SCH (10:36)
--- NOTE | 2018-08-30 12:01 | P.PNIM ---
Subjective Interval history: no complaints Physical Exam Vital signs: Last Vital Signs Temp 97.9 F 08/30/18 04:00 Pulse 79 08/30/18 05:46 Resp 18 08/30/18 04:00 BP 109/71 08/30/18 04:00 Pulse Ox 98 08/30/18 04:00 Narrative: dht heart irreg/syst murm lsb lung good air entry abd s/nt ext no edema Results Labs CBC & Chem 7: 08/30/18 04:50 08/30/18 04:50 Assessment and Plan Assessment (1) Severe aortic stenosis: Code(s): I35.0 - Nonrheumatic aortic (valve) stenosis Status: Acute (2) Congestive heart failure: Code(s): I50.9 - Heart failure, unspecified Status: Acute (3) Chronic kidney disease: Code(s): N18.9 - Chronic kidney disease, unspecified Status: Acute (4) COPD (chronic obstructive pulmonary disease): Code(s): J44.9 - Chronic obstructive pulmonary disease, unspecified Status: Acute (5) Atrial fibrillation: Code(s): I48.91 - Unspecified atrial fibrillation Status: Acute (6) Diabetes: Code(s): E11.9 - Type 2 diabetes mellitus without complications Status: Acute Plan 1. Severe AVS 2. Acute Systolic CHF NICM 3. atrial fibrillation 4. 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 Dysphagia 7.general Weakness 8.DM Aggressive PT daily Speech eval. Mod Barium swallow. continue glucerna 55ml/hr for now. cont ssi. entresto, coreg, asa, lasix. continue argatroban until surgery and then plan for antiplt plus coumadin. monitor for worsening hematuria. Tentative plan for TAVR next week Monday. _ (1) Congestive heart failure Qualifiers: Heart failure chronicity: Heart failure type: (2) Atrial fibrillation Qualifiers: Atrial fibrillation type: (3) Chronic kidney disease Qualifiers: Chronic kidney disease stage: (4) COPD (chronic obstructive pulmonary disease) Qualifiers: COPD type: Chronic bronchitis type: Emphysema type:
[2018-08-30] MEDS: Ferrous Sulfate 325 MG Tablet PO SCH ×2 (12:06→16:03)
--- NOTE | 2018-08-30 15:09 | P.PNONC ---
Subjective Interval history: Patient sitting in chair, at bedside. He reports that he is uncomfortable sitting in the chair. Continues on Argatroban drip, denies bleeding. Discussed with RN she has not noticed any bleeding. She discontinued his Simental catheter this afternoon. Objective Vital Signs/Intake & Output: Vital Signs 08/29/18 16:00 08/29/18 17:00 08/29/18 18:00 Temperature 98.2 F Pulse Rate 81 80 75 Respiratory Rate 18 Blood Pressure 126/84 Pulse Oximetry 98 08/29/18 19:00 08/29/18 20:00 08/29/18 21:00 Temperature 98.5 F Pulse Rate 80 80 80 Respiratory Rate 18 Blood Pressure 109/68 Pulse Oximetry 98 08/29/18 22:00 08/29/18 23:00 08/30/18 00:00 Temperature 97.7 F Pulse Rate 80 80 75 Respiratory Rate 18 Blood Pressure 112/65 Pulse Oximetry 97 08/30/18 01:00 08/30/18 02:00 08/30/18 03:00 Temperature Pulse Rate 80 79 79 Respiratory Rate Blood Pressure Pulse Oximetry 08/30/18 04:00 08/30/18 05:00 08/30/18 05:46 Temperature 97.9 F Pulse Rate 75 79 79 Respiratory Rate 18 Blood Pressure 109/71 Pulse Oximetry 98 08/30/18 07:00 08/30/18 08:00 08/30/18 09:00 Temperature 97.9 F Pulse Rate 84 72 82 Respiratory Rate 18 Blood Pressure 138/79 Pulse Oximetry 96 08/30/18 10:00 08/30/18 11:00 08/30/18 12:00 Temperature 98.2 F Pulse Rate 87 79 80 Respiratory Rate 18 Blood Pressure 119/84 Pulse Oximetry 97 08/30/18 13:00 Temperature Pulse Rate 88 Respiratory Rate Blood Pressure Pulse Oximetry Intake & Output 08/29/18 08/30/18 08/30/18 18:59 06:59 18:59 Intake Total 5 / 5 Output Total 1100 / 1100 700 / 700 Balance -1095 / -1095 -700 / -700 Weight 72 kg Intake: IV 5 / 5 NS Inj 1,000 ML @ 84 mls/hr IV. 5 / 5 CONT .[id number] [facility] Rx#:[id number] Output: Urine Amount (Catheter) 1100 / 1100 700 / 700 Indwelling Urethral Catheter 1100 / 1100 700 / 700 Other: Date of Last Bowel Movement 08/30/18 08/30/18 # Incontinent Bowel Movements 1 Result Diagrams: 08/30/18 04:50 08/30/18 04:50 Laboratory Results: Laboratory Results - last 24 hr 08/29/18 08/29/18 08/29/18 16:15 17:52 17:53 WBC RBC Hgb Hct MCV MCH MCHC RDW Plt Count MPV APTT 50.5 H D Sodium Potassium Chloride Carbon Dioxide Anion Gap BUN Creatinine Estimated GFR POC Glucose 67 L 83 Random Glucose Calcium Magnesium Total Bilirubin AST ALT Alkaline Phosphatase Total Protein Albumin 08/29/18 08/29/18 08/30/18 19:04 23:10 04:50 WBC 8.2 RBC 4.13 L Hgb 13.8 Hct 40.8 MCV 98.9 MCH 33.5 MCHC 33.9 RDW 15.8 Plt Count 334 MPV 9.2 APTT Sodium Potassium Chloride Carbon Dioxide Anion Gap BUN Creatinine Estimated GFR POC Glucose 169 H 102 Random Glucose Calcium Magnesium Total Bilirubin AST ALT Alkaline Phosphatase Total Protein Albumin 08/30/18 08/30/18 08/30/18 04:50 04:50 05:24 WBC RBC Hgb Hct MCV MCH MCHC RDW Plt Count MPV APTT 50.4 H Sodium 146 H Potassium 3.4 L Chloride 114 H Carbon Dioxide 26.1 Anion Gap 6 BUN 25 H Creatinine 0.96 Estimated GFR 76 L POC Glucose 108 Random Glucose 114 H Calcium 8.2 L Magnesium 2.2 Total Bilirubin 1.1 H AST 46 H ALT 49 Alkaline Phosphatase 190 H Total Protein 6.9 Albumin 2.6 L 08/30/18 11:12 WBC RBC Hgb Hct MCV MCH MCHC RDW Plt Count MPV APTT Sodium Potassium Chloride Carbon Dioxide Anion Gap BUN Creatinine Estimated GFR POC Glucose 144 H Random Glucose Calcium Magnesium Total Bilirubin AST ALT Alkaline Phosphatase Total Protein Albumin Culture Results: Microbiology 08/29/18 12:50 Urine Culture - Preliminary Catheterized Urine No growth in 24 hours Imaging Studies: Impressions Chest X-Ray 08/30/18 06:00 CONCLUSION: Decreased left lower lung atelectasis. Medications: Active Medications Generic Name Dose Route Start Last Admin Trade Name Freq PRN Reason Stop Dose Admin Aspirin 81 mg 08/29/18 09:00 08/30/18 10:10 Ecotrin PO 81 mg DAILY TONY Administration Chlorhexidine Gluconate 3 pack 08/29/18 04:00 08/30/18 05:32 Chlorhexidine 2% Cloth TOPICAL 09/03/18 03:59 Not Given DAILY@0400 [facility] Dextrose 50 ml 08/29/18 01:44 08/29/18 17:57 D50w Vial IV.PUSH 50 ml UNSCH PRN Administration PER HYPOGLYCEMIA PROTOCOL Famotidine 20 mg 08/29/18 09:00 08/30/18 10:10 Pepcid Pf Inj IV.PUSH 20 mg Q12HR TONY Administration Ferrous Sulfate 325 mg 08/30/18 12:00 08/30/18 12:06 Ferosul PO Not Given BID@1200,1700 TONY Folic Acid 1 mg 08/29/18 09:00 08/30/18 10:10 Folic Acid PO 1 mg DAILY TONY Administration Furosemide 40 mg 08/29/18 15:00 08/30/18 10:10 Lasix Inj IV.PUSH 40 mg DAILY TONY Administration Argatroban 250 mg/ Sodium 250 mls @ 0 mls/hr 08/29/18 02:30 08/29/18 16:18 Chloride IV.CONT 1 mcg/kg/min TITRATE PRN 4.41 mls/hr Per Protocol Titration Protocol Per Protocol Insulin Aspart 0 unit 08/29/18 06:00 08/30/18 12:06 Novolog Insulin Correctional Sugar Inj SQ Not Given Q6HR [facility] Protocol Senna/Docusate Sodium 1 tab 08/29/18 09:00 08/30/18 10:06 Georgiana-Colace PO Not Given BID [facility] Sodium Chloride 2 ml 08/29/18 09:00 08/30/18 10:11 Ns Flush IV.FLUSH 2 ml BID TO[facility] Administration Vitamin D 1,000 unit 08/29/18 09:00 08/30/18 10:10 Vitamin D3 PO 1,000 unit DAILY TONY Administration Objective Remarks: GENERAL: Elderly male patient, no acute distress. SKIN: Warm and dry. HEAD: Normocephalic. EYES: No scleral icterus. No injection or drainage. NECK: Supple, trachea midline. CARDIOVASCULAR: Distant heart sounds. RESPIRATORY: Posterior breath sounds clear equal bilaterally. No accessory muscle use. GASTROINTESTINAL: Abdomen soft, non-tender, nondistended. EXTREMITIES: No cyanosis, or edema. MUSCULOSKELETAL: Adequate muscle tone. NEUROLOGICAL: No obvious focal deficit. Awake, alert. PSYCHIATRIC: Appears irritated. Assessment/Plan - Plan Recommendations: 1. History of heparin-induced thrombocytopenia, continue or argatroban drip. 2. Continue to monitor for bleeding. 3. Repeat CBC in the a.m. - Attending Statement Pt. seen in room along with RN taking care of him. No apparent distress. Appears more oriented this morning (knows it is 2018) and no active bleeding. [place] urine in simental bag. Hg stable. Platelets normal. Continue argatroban; will follow up in hospital and switch to warfarin after the planned TAVR.
[2018-08-31] MEDS: Insulin NovoLOG Aspart Correctional Sugar Inj SQ SCH ×4 (00:22→17:45)
[2018-08-31 05:05] LABS: Baso # (Auto) 0.1 th/mm3 (0.0-0.2); Baso % (Auto) 0.9 % (0.0-2.0); Eos # (Auto) 0.2 th/mm3 (0.0-0.4); Eos % (Auto) 1.8 % (0.0-4.0); Hematocrit 42.9 % (39.0-51.0); Lymph # (Auto) 1.2 th/mm3 (1.0-4.8); Lymph % (Auto) 13.7 % (9.0-44.0); Mean Corpuscular HGB Conc 32.7 % (32.0-36.0); Mean Corpuscular Hemoglobin 33.1 pg (27.0-34.0); Mean Corpuscular Volume 101.1 fL (80.0-100.0); Mean Platelet Volume 9.2 fL (7.0-11.0); Mono # (Auto) 0.7 th/mm3 (0.0-0.9); Mono % (Auto) 8.4 % (0.0-8.0); Neut # (Auto) 6.5 th/mm3 (1.8-7.7); Neut % (Auto) 75.2 % (16.0-70.0); Platelet Count 396 th/mm3 (150-450); Red Blood Count 4.24 mil/mm3 (4.50-5.90); Red Cell Distribution Width 15.7 % (11.6-17.2); White Blood Count 8.6 th/mm3 (4.0-11.0)
[2018-08-31] MEDS: Chlorhexidine Gluconate 2% 1 Pack (2 Cloths) TOPICAL SCH (05:13)
[2018-08-31 05:30] LABS: Carbon Dioxide 28.3 meq/L (21.0-32.0); Potassium 3.6 meq/L (3.5-5.1)
--- NOTE | 2018-08-31 08:06 | P.PNCA ---
Subjective Interval history: Doing well today. Denies any chest pain, shortness of breath, palpitations. No significant arrhythmias on telemetry overnight. Medications and Allergies Allergies Allergy/AdvReac Type Severity Reaction Status Date / Time gemfibrozil Allergy Redness of Verified 08/29/18 00:15 Skin Home Medications Medication Instructions Recorded Confirmed Type aspirin 81 mg PO DAILY 08/29/18 08/29/18 History cholecalciferol (vitamin D3) 1,000 unit PO DAILY 08/29/18 08/29/18 History [Vitamin D3] diltiazem HCl 120 mg PO DAILY 08/29/18 08/29/18 History fenofibrate PO DAILY 08/29/18 History folic acid 1 mg PO DAILY 08/29/18 08/29/18 History furosemide 20 mg PO DAILY 08/29/18 08/29/18 History lisinopril 20 mg PO DAILY 08/29/18 08/29/18 History metformin 500 mg PO QPM 08/29/18 08/29/18 History methotrexate sodium 15 mg PO FR 08/29/18 08/29/18 History umeclidinium-vilanterol [Anoro 1 inh INHALATION Q24H 08/29/18 08/29/18 History Ellipta] warfarin 2.5 mg PO DAILY 08/29/18 08/29/18 History Active Medications: Active Medications Acetaminophen (Tylenol) 650 mg PO Q6H PRN PRN Reason: PAIN 1-10 AND/OR FEVER >101F Al Hydroxide/Mg Hydroxide (Milk Of Magnkerry Liq) 30 ml PO Q12H PRN PRN Reason: Mild Constipation Albuterol (Duoneb Neb (Prn)) 1 ampul NEB Q2HR NEB PRN PRN Reason: WHEEZING Aspirin (Ecotrin) 81 mg PO DAILY [facility] Last Admin: 08/30/18 10:10 Dose: 81 mg Bisacodyl (Dulcolax Supp) 10 mg RECTAL DAILY PRN PRN Reason: SEVERE CONSITIPATION Carvedilol (Coreg) 3.125 mg PO BID [facility] Last Admin: 08/30/18 21:41 Dose: 3.125 mg Chlorhexidine Gluconate (Chlorhexidine 2% Cloth) 3 pack TOPICAL DAILY@0400 [facility] Stop: 09/03/18 03:59 Last Admin: 08/31/18 05:13 Dose: Not Given Chlorhexidine Gluconate (Chlorhexidine 2% Cloth) 3 pack TOPICAL DAILY@0400 PRN PRN Reason: Extra cloth needed Stop: 09/03/18 03:59 Dextrose (D50w Vial) 50 ml IV.PUSH UNSCH PRN PRN Reason: PER HYPOGLYCEMIA PROTOCOL Last Admin: 08/29/18 17:57 Dose: 50 ml Famotidine (Pepcid Pf Inj) 20 mg IV.PUSH Q12HR [facility] Last Admin: 08/30/18 21:41 Dose: 20 mg Ferrous Sulfate (Ferosul) 325 mg PO BID@1200,1700 [facility] Last Admin: 08/30/18 16:03 Dose: Not Given Folic Acid (Folic Acid) 1 mg PO DAILY [facility] Last Admin: 08/30/18 10:10 Dose: 1 mg Furosemide (Lasix Inj) 40 mg IV.PUSH DAILY [facility] Last Admin: 08/30/18 10:10 Dose: 40 mg Glucagon (Glucagon Inj) 1 mg OTHER PRN PRN PRN Reason: for Hypoglycemia Protocol Argatroban 250 mg/ Sodium (Chloride) 250 mls @ 0 mls/hr IV.CONT TITRATE PRN; Protocol PRN Reason: Per Protocol Last Titration: 08/29/18 16:18 Dose: 1 mcg/kg/min, 4.41 mls/hr Insulin Aspart (Novolog Insulin Correctional Sugar Inj) 0 unit SQ Q6HR [facility]; Protocol Last Admin: 08/31/18 05:13 Dose: Not Given Lactulose (Lactulose Liq) 30 ml PO DAILY PRN PRN Reason: SEVERE CONSITIPATION Methotrexate (Rheumatrex) 15 mg PO [facility] Ondansetron HCl (Zofran Inj) 4 mg IV.PUSH Q6H PRN PRN Reason: NAUSEA OR VOMITING Sacubitril/Valsartan (Entresto 24 Mg/26 Mg Tablet) 1 tab PO BID [facility] Last Admin: 08/30/18 21:59 Dose: 1 tab Senna/Docusate Sodium (Georgiana-Colace) 1 tab PO BID [facility] Last Admin: 08/30/18 21:42 Dose: Not Given Sennosides (Senokot) 17.2 mg PO Q12H PRN PRN Reason: Moderate Constipation Sodium Chloride (Ns Flush) 2 ml IV.FLUSH BID [facility] Last Admin: 08/30/18 21:41 Dose: 2 ml Sodium Chloride (Ns Flush) 2 ml IV.FLUSH PRN PRN PRN Reason: FLUSH AFTER USING IV ACCESS Vitamin D (Vitamin D3) 1,000 unit PO DAILY [facility] Last Admin: 08/30/18 10:10 Dose: 1,000 unit Physical Exam Vital signs: Vital Signs 08/30/18 09:00 08/30/18 10:00 08/30/18 11:00 Temperature Pulse Rate 82 87 79 Respiratory Rate Blood Pressure Pulse Oximetry 08/30/18 12:00 08/30/18 13:00 08/30/18 14:00 Temperature 98.2 F Pulse Rate 80 88 79 Respiratory Rate 18 Blood Pressure 119/84 Pulse Oximetry 97 08/30/18 15:00 08/30/18 16:00 08/30/18 17:00 Temperature 97.9 F Pulse Rate 71 79 82 Respiratory Rate 18 Blood Pressure 124/81 Pulse Oximetry 100 08/30/18 18:00 08/30/18 19:00 08/30/18 20:00 Temperature 98.9 F Pulse Rate 80 84 80 Respiratory Rate 18 Blood Pressure 126/75 Pulse Oximetry 97 08/30/18 21:00 08/30/18 22:00 08/30/18 23:00 Temperature Pulse Rate 78 78 80 Respiratory Rate Blood Pressure Pulse Oximetry 08/31/18 00:00 08/31/18 01:00 08/31/18 02:00 Temperature 98.8 F Pulse Rate 78 78 78 Respiratory Rate 18 Blood Pressure 127/81 Pulse Oximetry 95 08/31/18 03:00 08/31/18 04:00 08/31/18 05:00 Temperature 98.6 F Pulse Rate 79 78 82 Respiratory Rate 18 Blood Pressure 126/79 Pulse Oximetry 97 08/31/18 06:00 Temperature Pulse Rate 78 Respiratory Rate Blood Pressure Pulse Oximetry Intake & Output 08/30/18 08/31/18 08/31/18 18:59 06:59 18:59 Intake Total 655 / 655 Output Total 1800 / 1800 250 / 250 Balance -1800 / -1800 405 / 405 Weight 159 lb 13.362 oz Intake: Tube Feeding 605 / 605 Tube Irrigant 50 / 50 Output: Urine 300 / 300 250 / 250 Urine Amount (Catheter) 1500 / 1500 Indwelling Urethral Catheter 1500 / 1500 Other: # Voids 2 Date of Last Bowel Movement 08/30/18 08/31/18 # Bowel Movements 1 1 Narrative: GENERAL: Well-developed well-nourished. In no acute distress. NG tube in place. NECK: No carotid bruits. No JVD. CARDIOVASCULAR: Regular rate and rhythm. 1/6 systolic murmur appreciated. Device in place left chest wall, healing. RESPIRATORY: No accessory muscle use. Clear to auscultation. Breath sounds equal bilaterally. MUSCULOSKELETAL: No clubbing or cyanosis. No edema. NEUROLOGICAL: Awake and alert. Normal speech. - Urinary Catheter Management Indwelling Urethral Catheter Cath placed during this visit: no Results 08/31/18 04:45 08/31/18 04:45 Cardiac Enzymes 08/30/18 Range/Units 04:50 AST 46 H (15-37) U/L Coagulation 08/29/18 08/29/18 08/29/18 Range/Units 08:29 11:30 16:15 APTT 47.8 H 78.6 H D 50.5 H D (23.4-31.7) sec 08/30/18 08/31/18 Range/Units 04:50 04:45 APTT 50.4 H 67.2 H D (23.4-31.7) sec CBC 08/30/18 08/31/18 Range/Units 04:50 04:45 WBC 8.2 8.6 (4.0-11.0) th/mm3 RBC 4.13 L 4.24 L (4.50-5.90) mil/mm3 Hgb 13.8 14.0 (13.0-17.0) gm/dL Hct 40.8 42.9 (39.0-51.0) % Plt Count 334 396 (150-450) th/mm3 Neut # (Auto) 6.5 (1.8-7.7) th/mm3 Lymph # (Auto) 1.2 (1.0-4.8) th/mm3 [place] # (Auto) 0.7 (0.0-0.9) th/mm3 Eos # (Auto) 0.2 (0.0-0.4) th/mm3 Baso # (Auto) 0.1 (0.0-0.2) th/mm3 Comprehensive Metabolic Panel 08/30/18 08/31/18 Range/Units 04:50 04:45 Sodium 146 H 149 H (136-145) meq/L Potassium 3.4 L 3.6 (3.5-5.1) meq/L Chloride 114 H 115 H (98-107) meq/L Carbon Dioxide 26.1 28.3 (21.0-32.0) meq/L BUN 25 H 22 H (7-18) mg/dL Creatinine 0.96 0.86 (0.60-1.30) mg/dL Calcium 8.2 L 8.0 L (8.5-10.1) mg/dL AST 46 H (15-37) U/L ALT 49 (12-78) U/L Alkaline Phosphatase 190 H (45-117) U/L Total Protein 6.9 (6.4-8.2) g/dL Albumin 2.6 L (3.4-5.0) g/dL Intake and Output 08/30/18 08/31/18 08/31/18 22:59 06:59 14:59 Intake Total 655 / 655 Output Total 1800 / 1800 250 / 250 Balance -1800 / -1800 405 / 405 Intake: Tube Feeding 605 / 605 Tube Irrigant 50 / 50 Output: Urine 300 / 300 250 / 250 Urine Amount (Catheter) 1500 / 1500 Indwelling Urethral Catheter 1500 / 1500 Other: # Voids 2 Date of Last Bowel Movement 08/30/18 08/31/18 # Bowel Movements 1 1 Weight 159 lb 13.362 oz - Imaging and Cardiology Imaging: Impressions Chest X-Ray 08/29/18 00:00 CONCLUSION: Cardiomegaly with probable mild congestive failure. I cannot see the tip of what I think is a feeding tube. Abdomen X-Ray 08/29/18 09:56 CONCLUSION: 1. Dobbhoff feeding tube with the tip at the level of the distal stomach. 2. Visualization of the known abdominal aortic aneurysm. 3. Bilateral renal calculi. Chest X-Ray 08/30/18 06:00 CONCLUSION: Decreased left lower lung atelectasis. Assessment and Plan - Plan Severe aortic valve stenosis Appreciate second opinion from Dr. Zapata. Continue with physical rehabilitation. Planning for TAVR next week. Patient would likely need physical rehabilitation as an inpatient following the procedure. Acute systolic congestive heart failure Severely reduced left ventricular systolic function, but clinically improving. Converted angiotensin converting enzyme inhibitor to Entresto, tolerate. Atrial fibrillation Patient has tachycardia bradycardia syndrome. Tolerating low-dose beta-meg. Cardiomyopathy, nonischemic Cardiac catheterization showed only mild nonobstructive coronary artery disease. Patient does have moderate mitral regurgitation, but there is significant afterload with his aortic valve stenosis which will hopefully improve after valve replacement. Patient already has biventricular implantable cardioverter defibrillator in place. Pulmonary embolism Patient will need at least 3-6 months of anticoagulation with Coumadin. I suspect patient will likely be on lifelong anticoagulation secondary to atrial fibrillation and increased CHADS-VASc score. Continue intravenous anticoagulation until his procedure. 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 Patient will need transition to Coumadin following transcatheter aortic valve replacement. Deconditioning Physical therapy Up with assist Barium swallow today Discussed Condition With: Dr. Arie Silverman
[2018-08-31] MEDS: Folic Acid 1 MG Tablet PO SCH (09:17)
[2018-08-31] MEDS: Senna/Docusate Sodium 8.6/50 MG Tablet PO SCH ×2 (09:17→21:51)
[2018-08-31] MEDS: Famotidine PF Inj 20 MG/2 ML Vial IV.PUSH SCH ×2 (09:18→21:51)
--- NOTE | 2018-08-31 09:36 | P.PNIM ---
Subjective Interval history: pt more alert and oriented no new complaints Physical Exam Vital signs: Last Vital Signs Temp 98.6 F 08/31/18 04:00 Pulse 78 08/31/18 06:00 Resp 18 08/31/18 04:00 BP 126/79 08/31/18 04:00 Pulse Ox 97 08/31/18 04:00 Narrative: dht heart irreg/syst murm lsb lung good air entry abd s/nt ext no edema simental not bloody Results Labs CBC & Chem 7: 08/31/18 04:45 08/31/18 04:45 Assessment and Plan Plan 1. Severe AVS 2. Acute Systolic CHF NICM 3. atrial fibrillation 4. 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 Dysphagia 7.general Weakness 8.DM 9. hematuria. Aggressive PT daily . hopefully jose simental soon. Speech eval. Mod Barium swallow pending continue glucerna 55ml/hr for now. cont ssi. entresto, coreg, asa, lasix. monitor na level. continue argatroban until surgery and then plan for antiplt plus coumadin. monitor for worsening hematuria. consulted CM for [facility]. This pt would benefit. hopefully dc follwing his TAVR on Monday. Tentative plan for TAVR next week Monday.
--- NOTE | 2018-08-31 10:32 | FL ---
EXAM DATE: 08/31/2018 10:24 AM EST AGE/SEX: 77 years / Male INDICATIONS: Dysphagia CLINICAL DATA: This is the patient's initial encounter. Patient reports that signs and symptoms have been present for 1 day and indicates a pain score of Nonresponsive. MEDICAL/SURGICAL HISTORY: . aortic stenosis Non-responsive. COMPARISON: None. FLUORO TIME: 2.2 IMAGE COUNT: 0 FINDINGS: A modified barium swallow was performed with speech pathology. Patient was given a variety of liquids to swallow. There was delayed oral preparatory phase. There is no aspiration or vestibular penetrati on. Prior to the study the feeding tube was noted to be coiled in the patient's throat. This was stra ightened prior to the procedure. For a full detailed report, see report by the speech pathologist. CONCLUSION: 1. The patient's Dobbhoff type feeding tube was coiled in the throat and the loop was first removed from the tube prior to the study. 2. No vestibular penetration or aspiration. The patient had a delayed oral preparatory phase. Electronically signed by: Flaquito Thompson MD Board Certified Radiologist 08/31/2018 10:31 AM MARILYN Arredondo
[2018-08-31] MEDS: Ferrous Sulfate 325 MG Tablet PO SCH ×2 (12:39→17:44)
[2018-08-31] MEDS ORDERED: Dextrose 5% in Water Inj 1,000 ML IV.CONT SCH (13:30)
--- NOTE | 2018-08-31 14:20 | CT ---
EXAM DATE: 08/31/2018 2:17 PM EST AGE/SEX: 77 years / Male INDICATIONS: Altered mental status. CLINICAL DATA: This is the patient's initial encounter. Patient reports that signs and symptoms have been present for 1 day and indicates a pain score of 0/10. MEDICAL/SURGICAL HISTORY: Congestive heart failure. Chronic obstructive pulmonary disease. Diabet es. A-fib, thrombocytopenia. None. RADIATION DOSE: 56.35 CTDI (mGy) COMPARISON: No prior exams available for comparison. TECHNIQUE: CT of the head without contrast. Using automated exposure control and adjustment of the mA and/or kV according to patient size, radiation dose was kept as low as reasonably achievable to ob tain optimal diagnostic quality images. DICOM format image data is available electronically for revi ew and comparison. FINDINGS: Cerebrum: The ventricles are normal for age with mild to moderate atrophic change. Chronic small ves shania ischemic changes are present as well. No evidence of midline shift, mass lesion, hemorrhage or ac council infarction. No extraaxial fluid collections are seen. Posterior Fossa: The cerebellum and brainstem are intact. The 4th ventricle is midline. The cerebe llopontine angle is unremarkable. Extracranial: The visualized portion of the orbits is intact. Skull: The calvaria is intact. No evidence of skull fracture. CONCLUSION: 1. No acute hemorrhage, mass or evidence of acute infarction. 2. Atrophy and chronic small vessel ischemic changes. . Electronically signed by: Flaquito Thompson MD Board Certified Radiologist 08/31/2018 2:19 PM EST
--- NOTE | 2018-08-31 17:29 | MH ---
cc: Vern To MD DATE OF ADMISSION: 08/28/2018 HISTORY OF PRESENT ILLNESS: Mr. Cyrus Hooper is seen in room 460 and followup. He continues to be hemodynamically stable without evidence of active bleeding. His urine has completely cleared up, but apparently he is more confused today per RN and he started to have a stat CT of the head without contrast, which was negative for bleeding and upon my questioning, he says he is doing great and when I told him that he was not bleeding anymore from in the urine, he showed me a thumbs up. He seems to be more coherent now, although he may be intermittently confused. His examination is negative for any evidence of bleeding, no petechia, ecchymosis or bruises and urine is completely clear today and not pink anymore. LABORATORY DATA: Reviewed. Hemoglobin and platelets are normal. IMPRESSION: Heparin-induced thrombocytopenia, on argatroban doing very well without evidence of bleeding, awaiting TAVR on 09/05/2018 and to be transitioned to Coumadin after that per prior discussion with Dr. Sargent. Hematology will continue to follow him up in the hospital as needed. Chronic mental status change secondary to possibly ischemic encephalopathy at the time of intubation at [facility]. Vern To MD MVA/ct , 04:32 PM , 04:39 PM
[2018-08-31] MEDS: Argatroban Inj 250 MG in Sodium Chlor 0.9% Inj 247.5 ML IV.CONT PRN (17:44)
[2018-09-01] MEDS: Insulin NovoLOG Aspart Correctional Sugar Inj SQ SCH ×4 (00:41→17:32)
[2018-09-01] MEDS: Chlorhexidine Gluconate 2% 1 Pack (2 Cloths) TOPICAL SCH (04:42)
[2018-09-01 06:29] LABS: Anion Gap 7 meq/L (5-15); Blood Urea Nitrogen 16 mg/dL (7-18); Chloride 110 meq/L (98-107); Glomerular Filtration Rate Greater Than 89 mL/min (>89); Glucose,Random 92 mg/dL (74-106); Potassium 3.6 meq/L (3.5-5.1); Sodium 145 meq/L (136-145)
[2018-09-01] MEDS: Famotidine PF Inj 20 MG/2 ML Vial IV.PUSH SCH ×2 (09:20→20:28)
[2018-09-01] MEDS: Senna/Docusate Sodium 8.6/50 MG Tablet PO SCH ×2 (09:21→20:28)
[2018-09-01] MEDS: Folic Acid 1 MG Tablet PO SCH (09:21)
--- NOTE | 2018-09-01 11:05 | P.PNONC ---
Subjective Interval history: Afebrile No bleeding Patient's is at bedside; she reports he does not seem confused to her anymore Noted CT of the brain was negative yesterday Argatroban continues Objective Vital Signs/Intake & Output: Vital Signs 08/31/18 12:00 08/31/18 13:00 08/31/18 14:00 Temperature 98.2 F Pulse Rate 81 79 82 Respiratory Rate 18 Blood Pressure 107/67 Pulse Oximetry 95 08/31/18 15:00 08/31/18 16:00 08/31/18 17:00 Temperature 97.4 F L Pulse Rate 80 80 80 Respiratory Rate 18 Blood Pressure 113/74 Pulse Oximetry 100 08/31/18 18:00 08/31/18 19:00 08/31/18 20:00 Temperature 97.9 F Pulse Rate 81 83 83 Respiratory Rate 18 Blood Pressure 122/85 Pulse Oximetry 99 08/31/18 21:00 08/31/18 22:00 08/31/18 23:00 Temperature Pulse Rate 84 80 80 Respiratory Rate Blood Pressure Pulse Oximetry 09/01/18 00:00 09/01/18 01:00 09/01/18 02:00 Temperature 98.5 F Pulse Rate 80 80 83 Respiratory Rate 18 Blood Pressure 123/82 Pulse Oximetry 97 09/01/18 03:00 09/01/18 04:00 09/01/18 05:00 Temperature Pulse Rate 82 82 80 Respiratory Rate 18 Blood Pressure Pulse Oximetry 09/01/18 06:00 09/01/18 07:00 09/01/18 08:00 Temperature 97 F L Pulse Rate 83 82 86 Respiratory Rate 20 Blood Pressure 119/67 Pulse Oximetry 97 09/01/18 09:00 09/01/18 10:00 Temperature Pulse Rate 84 81 Respiratory Rate Blood Pressure Pulse Oximetry Intake & Output 08/31/18 09/01/18 09/01/18 18:59 06:59 18:59 Intake Total 900 / 900 960 / 960 Output Total 660 / 660 Balance 900 / 900 300 / 300 Intake: IV 250 / 250 Novastan Inj 250 MG In NS Inj 250 / 250 247.5 ML @ Per Protocol IV.CONT TITRATE PRN Rx#:[id number] Oral 650 / 650 960 / 960 Output: Urine Amount (Catheter) 660 / 660 Condom 660 / 660 Other: # Voids 2 Date of Last Bowel Movement 08/31/18 08/31/18 08/31/18 Result Diagrams: 08/31/18 04:45 09/01/18 05:32 Laboratory Results: Laboratory Results - last 24 hr 08/31/18 08/31/18 09/01/18 17:16 23:22 05:32 APTT Sodium 145 Potassium 3.6 Chloride 110 H Carbon Dioxide 28.0 Anion Gap 7 BUN 16 Creatinine 0.77 Estimated GFR Greater than 89 POC Glucose 79 97 Random Glucose 92 Calcium 8.0 L 09/01/18 09/01/18 09/01/18 05:32 05:59 10:53 APTT 49.1 H D Sodium Potassium Chloride Carbon Dioxide Anion Gap BUN Creatinine Estimated GFR POC Glucose 86 103 Random Glucose Calcium Culture Results: Microbiology 08/29/18 12:50 Urine Culture - Final Catheterized Urine No growth in 48 hours Imaging Studies: Impressions Head CT 08/31/18 13:27 CONCLUSION: 1. No acute hemorrhage, mass or evidence of acute infarction. 2. Atrophy and chronic small vessel ischemic changes. . Medications: Active Medications Generic Name Dose Route Start Last Admin Trade Name Freq PRN Reason Stop Dose Admin Aspirin 81 mg 08/29/18 09:00 09/01/18 09:20 Ecotrin PO 81 mg DAILY [facility] Administration Carvedilol 3.125 mg 08/30/18 21:00 09/01/18 09:21 Coreg PO 3.125 mg BID [facility] Administration Chlorhexidine Gluconate 3 pack 08/29/18 04:00 09/01/18 04:42 Chlorhexidine 2% Cloth TOPICAL 09/03/18 03:59 Not Given DAILY@0400 [facility] Dextrose 50 ml 08/29/18 01:44 08/29/18 17:57 D50w Vial IV.PUSH 50 ml UNSCH PRN Administration PER HYPOGLYCEMIA PROTOCOL Famotidine 20 mg 08/29/18 09:00 09/01/18 09:20 Pepcid Pf Inj IV.PUSH 20 mg Q12HR [facility] Administration Ferrous Sulfate 325 mg 08/30/18 12:00 08/31/18 17:44 Ferosul PO 325 mg BID@1200,1700 [facility] Administration Folic Acid 1 mg 08/29/18 09:00 09/01/18 09:21 Folic Acid PO 1 mg DAILY [facility] Administration Furosemide 40 mg 08/29/18 15:00 09/01/18 09:20 Lasix Inj IV.PUSH 40 mg DAILY [facility] Administration Argatroban 250 mg/ Sodium 250 mls @ 0 mls/hr 08/29/18 02:30 08/31/18 17:44 Chloride IV.CONT 1 mcg/kg/min TITRATE PRN 4.41 mls/hr Per Protocol Administration Protocol Per Protocol Dextrose 1,000 mls @ 42 mls/hr 08/31/18 13:30 08/31/18 15:49 D5w Inj IV.CONT 42 mls/hr .[id number] [facility] Administration Insulin Aspart 0 unit 08/29/18 06:00 09/01/18 06:41 Novolog Insulin Correctional Sugar Inj SQ Not Given Q6HR [facility] Protocol Methotrexate 15 mg 08/31/18 09:00 08/31/18 09:16 Rheumatrex PO 15 mg Fr [facility] Administration Sacubitril/Valsartan 1 tab 08/30/18 21:00 09/01/18 09:20 Entresto 24 Mg/26 Mg Tablet PO 1 tab BID [facility] Administration Senna/Docusate Sodium 1 tab 08/29/18 09:00 09/01/18 09:21 Georgiana-Colace PO 1 tab BID [facility] Administration Sodium Chloride 2 ml 08/29/18 09:00 09/01/18 09:19 Ns Flush IV.FLUSH 2 ml BID [facility] Administration Vitamin D 1,000 unit 08/29/18 09:00 09/01/18 09:21 Vitamin D3 PO 1,000 unit DAILY [facility] Administration Objective Remarks: GENERAL: Elderly male patient asleep on approach. SKIN: Warm and dry. HEAD: Normocephalic. EYES: No scleral icterus. No injection or drainage. NECK: Supple, trachea midline. CARDIOVASCULAR: Distant heart sounds. RESPIRATORY: Clear anteriorly. Breathing unlabored at rest. GASTROINTESTINAL: Abdomen soft, non-tender, nondistended. : Hernandez catheter in place with straw-colored urine; no obvious hematuria EXTREMITIES: No cyanosis, or edema. MUSCULOSKELETAL: Adequate muscle tone. NEUROLOGICAL: Opens his eyes briefly but quickly falls back to sleep Assessment/Plan - Plan 77-year-old male with history of heparin-induced thrombocytopenia diagnosed at [facility] admitted with shortness of breath known to have severe aortic stenosis. He is being evaluated for TAVR procedure and this is tentatively planned for 09/05. 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 1. Continue argatroban drip. Monitor for bleeding. 2. Check liver enzymes in a.m. as argatroban is hepatically cleared. Continue to monitor APTT for therapeutic values. 3. Repeat CBC in the a.m. - Attending Statement The exam, history, and the medical decision-making described in the above note were completed with the assistance of the mid-level provider. I reviewed and agree with the findings presented. I attest that I had a [id number] encounter with the patient on the same day, and personally performed and documented my assessment and findings in the medical record. Chart reviewed, patient seen and examined Patient denies any new complaint Case discussed with patient's RN He is on argatroban for HIt TAVR is scheduled for next week Monday for severe aortic stenosis
--- NOTE | 2018-09-01 11:13 | P.PNIM ---
Subjective Interval history: nad trying to eat breakfast. ngt pulled out yesteray but passed MBS Physical Exam Vital signs: Last Vital Signs Temp 97 F L 09/01/18 08:00 Pulse 81 09/01/18 10:00 Resp 20 09/01/18 08:00 BP 119/67 09/01/18 08:00 Pulse Ox 97 09/01/18 08:00 Narrative: heart irreg/syst murm lsb lung good air entry abd s/nt ext no edema simental not bloody Results Labs CBC & Chem 7: 08/31/18 04:45 09/01/18 05:32 Assessment and Plan Plan 1. Severe AVS 2. Acute Systolic CHF NICM 3. atrial fibrillation 4. 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 Dysphagia 7.general Weakness 8.DM 9. hematuria. Aggressive PT daily . hopefully jose simental soon. Speech eval. Mod Barium swallow 08/31 pt pulled out dht on 08/31 but started on po diet cont ssi. entresto, coreg, asa, lasix. monitor na level. continue argatroban until surgery and then plan for antiplt plus coumadin. monitor for worsening hematuria. had some confusion 08/31. ct head negative for bleed.. given some d5w for hypernatremia which corrected. consulted CM for [facility]. This pt would benefit. hopefully jose follwing his TAVR on Monday. Tentative plan for TAVR next week Monday.
[2018-09-01] MEDS: Ferrous Sulfate 325 MG Tablet PO SCH ×2 (11:30→17:31)
--- NOTE | 2018-09-01 12:06 | P.PNCA ---
Subjective Interval history: Anticipate physical therapy at bedside. Medications and Allergies Active Medications: Active Medications Acetaminophen (Tylenol) 650 mg PO Q6H PRN PRN Reason: PAIN 1-10 AND/OR FEVER >101F Al Hydroxide/Mg Hydroxide (Milk Of Magnkerry Liq) 30 ml PO Q12H PRN PRN Reason: Mild Constipation Albuterol (Duoneb Neb (Prn)) 1 ampul NEB Q2HR NEB PRN PRN Reason: WHEEZING Aspirin (Ecotrin) 81 mg PO DAILY [facility] Last Admin: 09/01/18 09:20 Dose: 81 mg Bisacodyl (Dulcolax Supp) 10 mg RECTAL DAILY PRN PRN Reason: SEVERE CONSITIPATION Carvedilol (Coreg) 3.125 mg PO BID [facility] Last Admin: 09/01/18 09:21 Dose: 3.125 mg Chlorhexidine Gluconate (Chlorhexidine 2% Cloth) 3 pack TOPICAL DAILY@0400 [facility] Stop: 09/03/18 03:59 Last Admin: 09/01/18 04:42 Dose: Not Given Chlorhexidine Gluconate (Chlorhexidine 2% Cloth) 3 pack TOPICAL DAILY@0400 PRN PRN Reason: Extra cloth needed Stop: 09/03/18 03:59 Dextrose (D50w Vial) 50 ml IV.PUSH UNSCH PRN PRN Reason: PER HYPOGLYCEMIA PROTOCOL Last Admin: 08/29/18 17:57 Dose: 50 ml Famotidine (Pepcid Pf Inj) 20 mg IV.PUSH Q12HR [facility] Last Admin: 09/01/18 09:20 Dose: 20 mg Ferrous Sulfate (Ferosul) 325 mg PO BID@1200,1700 [facility] Last Admin: 09/01/18 11:30 Dose: 325 mg Folic Acid (Folic Acid) 1 mg PO DAILY [facility] Last Admin: 09/01/18 09:21 Dose: 1 mg Furosemide (Lasix Inj) 40 mg IV.PUSH DAILY [facility] Last Admin: 09/01/18 09:20 Dose: 40 mg Glucagon (Glucagon Inj) 1 mg OTHER PRN PRN PRN Reason: for Hypoglycemia Protocol Argatroban 250 mg/ Sodium (Chloride) 250 mls @ 0 mls/hr IV.CONT TITRATE PRN; Protocol PRN Reason: Per Protocol Last Admin: 08/31/18 17:44 Dose: 1 mcg/kg/min, 4.41 mls/hr Insulin Aspart (Novolog Insulin Correctional Sugar Inj) 0 unit SQ Q6HR [facility]; Protocol Last Admin: 09/01/18 11:44 Dose: Not Given Lactulose (Lactulose Liq) 30 ml PO DAILY PRN PRN Reason: SEVERE CONSITIPATION Methotrexate (Rheumatrex) 15 mg PO Fr [facility] Last Admin: 08/31/18 09:16 Dose: 15 mg Ondansetron HCl (Zofran Inj) 4 mg IV.PUSH Q6H PRN PRN Reason: NAUSEA OR VOMITING Sacubitril/Valsartan (Entresto 24 Mg/26 Mg Tablet) 1 tab PO BID [facility] Last Admin: 09/01/18 09:20 Dose: 1 tab Senna/Docusate Sodium ([place]-Colace) 1 tab PO BID [facility] Last Admin: 09/01/18 09:21 Dose: 1 tab Sennosides (Senokot) 17.2 mg PO Q12H PRN PRN Reason: Moderate Constipation Sodium Chloride (Ns Flush) 2 ml IV.FLUSH BID [facility] Last Admin: 09/01/18 09:19 Dose: 2 ml Sodium Chloride (Ns Flush) 2 ml IV.FLUSH PRN PRN PRN Reason: FLUSH AFTER USING IV ACCESS Vitamin D (Vitamin D3) 1,000 unit PO DAILY [facility] Last Admin: 09/01/18 09:21 Dose: 1,000 unit Allergies Allergy/AdvReac Type Severity Reaction Status Date / Time gemfibrozil Allergy Redness of Verified 08/29/18 00:15 Skin Home Medications Medication Instructions Recorded Confirmed Type aspirin 81 mg PO DAILY 08/29/18 08/29/18 History cholecalciferol (vitamin D3) 1,000 unit PO DAILY 08/29/18 08/29/18 History [Vitamin D3] diltiazem HCl 120 mg PO DAILY 08/29/18 08/29/18 History fenofibrate PO DAILY 08/29/18 History folic acid 1 mg PO DAILY 08/29/18 08/29/18 History furosemide 20 mg PO DAILY 08/29/18 08/29/18 History lisinopril 20 mg PO DAILY 08/29/18 08/29/18 History metformin 500 mg PO QPM 08/29/18 08/29/18 History methotrexate sodium 15 mg PO FR 08/29/18 08/29/18 History umeclidinium-vilanterol [Anoro 1 inh INHALATION Q24H 08/29/18 08/29/18 History Ellipta] warfarin 2.5 mg PO DAILY 08/29/18 08/29/18 History Physical Exam Vital signs: Vital Signs 08/31/18 13:00 08/31/18 14:00 08/31/18 15:00 Temperature Pulse Rate 79 82 80 Respiratory Rate Blood Pressure Pulse Oximetry 08/31/18 16:00 08/31/18 17:00 08/31/18 18:00 Temperature 97.4 F L Pulse Rate 80 80 81 Respiratory Rate 18 Blood Pressure 113/74 Pulse Oximetry 100 08/31/18 19:00 08/31/18 20:00 08/31/18 21:00 Temperature 97.9 F Pulse Rate 83 83 84 Respiratory Rate 18 Blood Pressure 122/85 Pulse Oximetry 99 08/31/18 22:00 08/31/18 23:00 09/01/18 00:00 Temperature 98.5 F Pulse Rate 80 80 80 Respiratory Rate 18 Blood Pressure 123/82 Pulse Oximetry 97 09/01/18 01:00 09/01/18 02:00 09/01/18 03:00 Temperature Pulse Rate 80 83 82 Respiratory Rate Blood Pressure Pulse Oximetry 09/01/18 04:00 09/01/18 05:00 09/01/18 06:00 Temperature Pulse Rate 82 80 83 Respiratory Rate 18 Blood Pressure Pulse Oximetry 09/01/18 07:00 09/01/18 08:00 09/01/18 09:00 Temperature 97 F L Pulse Rate 82 86 84 Respiratory Rate 20 Blood Pressure 119/67 Pulse Oximetry 97 09/01/18 10:00 09/01/18 11:00 09/01/18 11:45 Temperature 98.2 F Pulse Rate 81 79 88 Respiratory Rate 20 Blood Pressure 110/71 Pulse Oximetry 96 Intake & Output 08/31/18 09/01/18 09/01/18 18:59 06:59 18:59 Intake Total 900 / 900 960 / 960 Output Total 660 / 660 Balance 900 / 900 300 / 300 Intake: IV 250 / 250 Novastan Inj 250 MG In NS Inj 250 / 250 247.5 ML @ Per Protocol IV.CONT TITRATE PRN Rx#:[id number] Oral 650 / 650 960 / 960 Output: Urine Amount (Catheter) 660 / 660 Condom 660 / 660 Other: # Voids 2 Date of Last Bowel Movement 08/31/18 08/31/18 08/31/18 - Constitutional chronically ill appearing - Routine HEENT Exam Head: Present: normocephalic - Routine Neck Exam Present: supple, full ROM, JVD, carotid bruit - Routine Respiratory Exam Present: decreased breath sounds, CTA bilaterally - Routine Cardiovascular Exam Present: RRR, S1 - Routine Abdominal Exam Present: soft, normoactive bowel sounds - Urinary Catheter Management Indwelling Urethral Catheter Cath placed during this visit: no Condom Cath placed during this visit: no Results 08/31/18 04:45 09/01/18 05:32 Coagulation 08/31/18 09/01/18 Range/Units 04:45 05:32 APTT 67.2 H D 49.1 H D (23.4-31.7) sec CBC 08/31/18 Range/Units 04:45 WBC 8.6 (4.0-11.0) th/mm3 RBC 4.24 L (4.50-5.90) mil/mm3 Hgb 14.0 (13.0-17.0) gm/dL Hct 42.9 (39.0-51.0) % Plt Count 396 (150-450) th/mm3 Neut # (Auto) 6.5 (1.8-7.7) th/mm3 Lymph # (Auto) 1.2 (1.0-4.8) th/mm3 [place] # (Auto) 0.7 (0.0-0.9) th/mm3 Eos # (Auto) 0.2 (0.0-0.4) th/mm3 Baso # (Auto) 0.1 (0.0-0.2) th/mm3 Comprehensive Metabolic Panel 08/31/18 09/01/18 Range/Units 04:45 05:32 Sodium 149 H 145 (136-145) meq/L Potassium 3.6 3.6 (3.5-5.1) meq/L Chloride 115 H 110 H (98-107) meq/L Carbon Dioxide 28.3 28.0 (21.0-32.0) meq/L BUN 22 H 16 (7-18) mg/dL Creatinine 0.86 0.77 (0.60-1.30) mg/dL Calcium 8.0 L 8.0 L (8.5-10.1) mg/dL Intake and Output 08/31/18 09/01/18 09/01/18 22:59 06:59 14:59 Intake Total 650 / 650 960 / 960 Output Total 660 / 660 Balance 650 / 650 300 / 300 Intake: Oral 650 / 650 960 / 960 Output: Urine Amount (Catheter) 660 / 660 Condom 660 / 660 Other: # Voids 2 Date of Last Bowel Movement 08/31/18 08/31/18 08/31/18 - Imaging and Cardiology Imaging: Impressions Videofluoroscopic Swallow 08/31/18 00:00 CONCLUSION: 1. The patient's Dobbhoff type feeding tube was coiled in the throat and the loop was first removed from the tube prior to the study. 2. No vestibular penetration or aspiration. The patient had a delayed oral preparatory phase. Head CT 08/31/18 13:27 CONCLUSION: 1. No acute hemorrhage, mass or evidence of acute infarction. 2. Atrophy and chronic small vessel ischemic changes. . Assessment and Plan - Assessment (1) Severe aortic stenosis Code(s): I35.0 - Nonrheumatic aortic (valve) stenosis Status: Acute (2) Congestive heart failure Code(s): I50.9 - Heart failure, unspecified Status: Acute (3) Chronic kidney disease Code(s): N18.9 - Chronic kidney disease, unspecified Status: Acute (4) COPD (chronic obstructive pulmonary disease) Code(s): J44.9 - Chronic obstructive pulmonary disease, unspecified Status: Acute (5) Atrial fibrillation Code(s): I48.91 - Unspecified atrial fibrillation Status: Acute - Plan Severe aortic valve stenosis Appreciate second opinion from Dr. Zapata. Continue with physical rehabilitation. Planning for TAVR next week. Patient would likely need physical rehabilitation as an inpatient following the procedure. Acute systolic congestive heart failure Severely reduced left ventricular systolic function, but clinically improving. Converted angiotensin converting enzyme inhibitor to Entresto, tolerate. Atrial fibrillation Patient has tachycardia bradycardia syndrome. Tolerating low-dose beta-meg. Cardiomyopathy, nonischemic Cardiac catheterization showed only mild nonobstructive coronary artery disease. Patient does have moderate mitral regurgitation, but there is significant afterload with his aortic valve stenosis which will hopefully improve after valve replacement. Patient already has biventricular implantable cardioverter defibrillator in place. Pulmonary embolism Patient will need at least 3-6 months of anticoagulation with Coumadin. I suspect patient will likely be on lifelong anticoagulation secondary to atrial fibrillation and increased CHADS-VASc score. Continue intravenous anticoagulation until his procedure. 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 Patient will need transition to Coumadin following transcatheter aortic valve replacement.
[2018-09-01] MEDS: Acetaminophen 325 MG Tablet PO PRN (20:28)
[2018-09-02] MEDS: Insulin NovoLOG Aspart Correctional Sugar Inj SQ SCH ×5 (00:34→21:53)
[2018-09-02 04:13] LABS: Baso # (Auto) 0.1 th/mm3 (0.0-0.2); Baso % (Auto) 0.6 % (0.0-2.0); Eos # (Auto) 0.2 th/mm3 (0.0-0.4); Eos % (Auto) 2.2 % (0.0-4.0); Hematocrit 44.6 % (39.0-51.0); Hemoglobin 14.8 gm/dL (13.0-17.0); Lymph # (Auto) 1.5 th/mm3 (1.0-4.8); Lymph % (Auto) 17.9 % (9.0-44.0); Mean Corpuscular HGB Conc 33.2 % (32.0-36.0); Mean Corpuscular Volume 99.3 fL (80.0-100.0); Mono # (Auto) 0.7 th/mm3 (0.0-0.9); Neut # (Auto) 5.7 th/mm3 (1.8-7.7); Neut % (Auto) 70.3 % (16.0-70.0); Platelet Count 454 th/mm3 (150-450); Red Blood Count 4.48 mil/mm3 (4.50-5.90); White Blood Count 8.1 th/mm3 (4.0-11.0)
[2018-09-02] MEDS: Chlorhexidine Gluconate 2% 1 Pack (2 Cloths) TOPICAL SCH (04:35)
[2018-09-02 04:45] LABS: Alanine Aminotransferase 38 U/L (12-78); Albumin 2.5 g/dL (3.4-5.0); Anion Gap 6 meq/L (5-15); Aspartate Aminotransferase 32 U/L (15-37); Blood Urea Nitrogen 15 mg/dL (7-18); Calcium 8.2 mg/dL (8.5-10.1); Carbon Dioxide 29.1 meq/L (21.0-32.0); Chloride 107 meq/L (98-107); Glomerular Filtration Rate Greater Than 89 mL/min (>89); Glucose,Random 85 mg/dL (74-106); Potassium 3.7 meq/L (3.5-5.1); Sodium 142 meq/L (136-145)
[2018-09-02 04:47] LABS: Alkaline Phosphatase 129 U/L (45-117); Total Protein 6.8 g/dL (6.4-8.2)
--- NOTE | 2018-09-02 08:48 | P.PNIM ---
Subjective Interval history: more oriented oob to chair x 4 hrs yesterday Physical Exam Vital signs: Last Vital Signs Temp 97 F L 09/02/18 07:59 Pulse 79 09/02/18 08:00 Resp 20 09/02/18 07:59 BP 96/73 L 09/02/18 07:59 Pulse Ox 97 09/02/18 07:59 Narrative: heart irreg/syst murm lsb lung good air entry abd s/nt ext no edema simental dark urine Results Labs CBC & Chem 7: 09/02/18 03:30 09/02/18 03:30 Assessment and Plan Assessment (1) Severe aortic stenosis: Code(s): I35.0 - Nonrheumatic aortic (valve) stenosis Status: Acute (2) Congestive heart failure: Code(s): I50.9 - Heart failure, unspecified Status: Acute (3) Chronic kidney disease: Code(s): N18.9 - Chronic kidney disease, unspecified Status: Acute (4) COPD (chronic obstructive pulmonary disease): Code(s): J44.9 - Chronic obstructive pulmonary disease, unspecified Status: Acute (5) Atrial fibrillation: Code(s): I48.91 - Unspecified atrial fibrillation Status: Acute Plan 1. Severe AVS 2. Acute Systolic CHF NICM 3. atrial fibrillation 4. 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 Dysphagia 7.general Weakness 8.DM 9. hematuria. Aggressive PT daily . hopefully jose simental soon. Speech eval. Mod Barium swallow 08/31 pt pulled out dht on 08/31 but started on po diet cont ssi. entresto, coreg, asa, lasix. monitor na level. continue argatroban until surgery and then plan for antiplt plus coumadin. monitor for worsening hematuria. had some confusion 08/31. ct head negative for bleed.. given some d5w for hypernatremia which corrected. consulted CM for [facility]. This pt would benefit. hopefully dc follwing his TAVR on Monday. Tentative plan for TAVR next week Monday. ADDENDUM: PT SBP 70'S AND LOW 80'S HOLD LASIX. PARAMETER'S ON ENTRESTO AND COREG. NS 500ML X 1 NOW. _ (1) Congestive heart failure Qualifiers: Heart failure chronicity: Heart failure type: (2) Atrial fibrillation Qualifiers: Atrial fibrillation type: (3) Chronic kidney disease Qualifiers: Chronic kidney disease stage: (4) COPD (chronic obstructive pulmonary disease) Qualifiers: COPD type: Chronic bronchitis type: Emphysema type:
[2018-09-02] MEDS: Folic Acid 1 MG Tablet PO SCH (08:53)
[2018-09-02] MEDS: Famotidine PF Inj 20 MG/2 ML Vial IV.PUSH SCH ×2 (08:53→21:48)
[2018-09-02] MEDS: Senna/Docusate Sodium 8.6/50 MG Tablet PO SCH ×2 (08:53→21:48)
[2018-09-02] MEDS: Ferrous Sulfate 325 MG Tablet PO SCH ×2 (11:22→17:36)
[2018-09-02] MEDS ORDERED: Sodium Chlor 0.9% Inj 500 ML IV.SIG SCH (12:59)
[2018-09-02] MEDS: Argatroban Inj 250 MG in Sodium Chlor 0.9% Inj 247.5 ML IV.CONT PRN (14:00)
--- NOTE | 2018-09-02 16:03 | P.PNCA ---
Subjective Interval history: Feeling slightly better. Sitting up in chair most of the day today. Medications and Allergies Active Medications: Active Medications Acetaminophen (Tylenol) 650 mg PO Q6H PRN PRN Reason: PAIN 1-10 AND/OR FEVER >101F Last Admin: 09/01/18 20:28 Dose: 650 mg Al Hydroxide/Mg Hydroxide (Milk Of Magnkerry Liq) 30 ml PO Q12H PRN PRN Reason: Mild Constipation Albuterol (Duoneb Neb (Prn)) 1 ampul NEB Q2HR NEB PRN PRN Reason: WHEEZING Aspirin (Ecotrin) 81 mg PO DAILY [facility] Last Admin: 09/02/18 08:53 Dose: 81 mg Bisacodyl (Dulcolax Supp) 10 mg RECTAL DAILY PRN PRN Reason: SEVERE CONSITIPATION Carvedilol (Coreg) 3.125 mg PO BID [facility] Last Admin: 09/02/18 08:53 Dose: 3.125 mg Chlorhexidine Gluconate (Chlorhexidine 2% Cloth) 3 pack TOPICAL DAILY@0400 [facility] Stop: 09/03/18 03:59 Last Admin: 09/02/18 04:35 Dose: Not Given Chlorhexidine Gluconate (Chlorhexidine 2% Cloth) 3 pack TOPICAL DAILY@0400 PRN PRN Reason: Extra cloth needed Stop: 09/03/18 03:59 Dextrose (D50w Vial) 50 ml IV.PUSH UNSCH PRN PRN Reason: PER HYPOGLYCEMIA PROTOCOL Last Admin: 08/29/18 17:57 Dose: 50 ml Famotidine (Pepcid Pf Inj) 20 mg IV.PUSH Q12HR [facility] Last Admin: 09/02/18 08:53 Dose: 20 mg Ferrous Sulfate (Ferosul) 325 mg PO BID@1200,1700 [facility] Last Admin: 09/02/18 11:22 Dose: 325 mg Folic Acid (Folic Acid) 1 mg PO DAILY [facility] Last Admin: 09/02/18 08:53 Dose: 1 mg Glucagon (Glucagon Inj) 1 mg OTHER PRN PRN PRN Reason: for Hypoglycemia Protocol Argatroban 250 mg/ Sodium (Chloride) 250 mls @ 0 mls/hr IV.CONT TITRATE PRN; Protocol PRN Reason: Per Protocol Last Titration: 09/02/18 07:00 Dose: 2 mcg/kg/min, 8.82 mls/hr Insulin Aspart (Novolog Insulin Correctional Sugar Inj) 0 unit SQ ACHS [facility]; Protocol Last Admin: 09/02/18 12:16 Dose: 2 unit Lactulose (Lactulose Liq) 30 ml PO DAILY PRN PRN Reason: SEVERE CONSITIPATION Methotrexate (Rheumatrex) 15 mg PO Fr [facility] Last Admin: 08/31/18 09:16 Dose: 15 mg Ondansetron HCl (Zofran Inj) 4 mg IV.PUSH Q6H PRN PRN Reason: NAUSEA OR VOMITING Sacubitril/Valsartan (Entresto 24 Mg/26 Mg Tablet) 1 tab PO BID [facility] Last Admin: 09/02/18 08:53 Dose: 1 tab Senna/Docusate Sodium ([place]-Colace) 1 tab PO BID [facility] Last Admin: 09/02/18 08:53 Dose: 1 tab Sennosides (Senokot) 17.2 mg PO Q12H PRN PRN Reason: Moderate Constipation Sodium Chloride (Ns Flush) 2 ml IV.FLUSH BID [facility] Last Admin: 09/02/18 08:54 Dose: 2 ml Sodium Chloride (Ns Flush) 2 ml IV.FLUSH PRN PRN PRN Reason: FLUSH AFTER USING IV ACCESS Vitamin D (Vitamin D3) 1,000 unit PO DAILY [facility] Last Admin: 09/02/18 08:53 Dose: 1,000 unit Allergies Allergy/AdvReac Type Severity Reaction Status Date / Time gemfibrozil Allergy Redness of Verified 08/29/18 00:15 Skin Home Medications Medication Instructions Recorded Confirmed Type aspirin 81 mg PO DAILY 08/29/18 08/29/18 History cholecalciferol (vitamin D3) 1,000 unit PO DAILY 08/29/18 08/29/18 History [Vitamin D3] diltiazem HCl 120 mg PO DAILY 08/29/18 08/29/18 History fenofibrate PO DAILY 08/29/18 History folic acid 1 mg PO DAILY 08/29/18 08/29/18 History furosemide 20 mg PO DAILY 08/29/18 08/29/18 History lisinopril 20 mg PO DAILY 08/29/18 08/29/18 History metformin 500 mg PO QPM 08/29/18 08/29/18 History methotrexate sodium 15 mg PO FR 08/29/18 08/29/18 History umeclidinium-vilanterol [Anoro 1 inh INHALATION Q24H 08/29/18 08/29/18 History Ellipta] warfarin 2.5 mg PO DAILY 08/29/18 08/29/18 History Physical Exam Vital signs: Vital Signs 09/01/18 17:00 09/01/18 18:00 09/01/18 19:00 Temperature Pulse Rate 82 80 79 Respiratory Rate Blood Pressure Pulse Oximetry 09/01/18 20:00 09/01/18 21:00 09/01/18 22:00 Temperature 97.6 F Pulse Rate 79 78 80 Respiratory Rate 18 Blood Pressure 107/73 Pulse Oximetry 97 09/01/18 23:00 09/02/18 00:00 09/02/18 01:00 Temperature 97.9 F Pulse Rate 78 78 80 Respiratory Rate 22 Blood Pressure 106/65 Pulse Oximetry 99 09/02/18 02:00 09/02/18 03:00 09/02/18 04:00 Temperature 98.2 F Pulse Rate 78 80 82 Respiratory Rate 20 Blood Pressure 91/59 L Pulse Oximetry 95 09/02/18 05:00 09/02/18 06:00 09/02/18 07:00 Temperature Pulse Rate 78 80 79 Respiratory Rate Blood Pressure Pulse Oximetry 09/02/18 07:59 09/02/18 08:00 09/02/18 09:00 Temperature 97 F L Pulse Rate 75 79 78 Respiratory Rate 20 Blood Pressure 96/73 L Pulse Oximetry 97 09/02/18 10:00 09/02/18 11:00 09/02/18 12:00 Temperature 97 F L Pulse Rate 80 79 75 Respiratory Rate 20 Blood Pressure 85/54 L Pulse Oximetry 99 09/02/18 13:00 09/02/18 13:57 09/02/18 14:00 Temperature Pulse Rate 78 79 Respiratory Rate Blood Pressure 92/55 L Pulse Oximetry 09/02/18 15:00 09/02/18 15:29 Temperature 97 F L Pulse Rate 81 80 Respiratory Rate 20 Blood Pressure 109/70 Pulse Oximetry 97 Intake & Output 09/01/18 09/02/18 09/02/18 18:59 06:59 18:59 Intake Total 1720 / 1720 1440 / 1440 Output Total 600 / 600 500 / 500 Balance 1120 / 1120 940 / 940 Weight 75 kg Intake: IV 1000 / 1000 D5W Inj 1,000 ML @ 42 mls/hr IV 1000 / 1000 .CONT .[id number] [facility] Rx#:[id number] Oral 720 / 720 1440 / 1440 Output: Urine 300 / 300 Urine Amount (Catheter) 300 / 300 500 / 500 Condom 300 / 300 500 / 500 Other: Date of Last Bowel Movement 08/31/18 08/31/18 08/31/18 - Constitutional no acute distress, chronically ill appearing - Routine HEENT Exam Head: Present: normocephalic Eye: Present: EOMI, PERRL, periorbital ecchymosis - Routine Neck Exam Present: supple, full ROM, JVD, carotid bruit - Routine Respiratory Exam Present: decreased breath sounds, CTA bilaterally - Routine Cardiovascular Exam Present: RRR, S1, S2, murmur - Routine Abdominal Exam Present: soft, normoactive bowel sounds - Routine Skin Exam Present: dry, warm - Routine Neurological Exam Present: alert, oriented X3 - Detailed Neurological Exam: Coma Scale Eye Opening: Spontaneous - Routine Psychiatric Exam Present: normal affect - Urinary Catheter Management Indwelling Urethral Catheter Cath placed during this visit: no Condom Cath placed during this visit: no Results 09/02/18 03:30 09/02/18 03:30 Cardiac Enzymes 09/02/18 Range/Units 03:30 AST 32 (15-37) U/L Coagulation 09/01/18 09/01/18 09/02/18 Range/Units 05:32 22:40 03:30 APTT 49.1 H D 44.9 H 58.7 H D (23.4-31.7) sec CBC 09/02/18 Range/Units 03:30 WBC 8.1 (4.0-11.0) th/mm3 RBC 4.48 L (4.50-5.90) mil/mm3 Hgb 14.8 (13.0-17.0) gm/dL Hct 44.6 (39.0-51.0) % Plt Count 454 H (150-450) th/mm3 Neut # (Auto) 5.7 (1.8-7.7) th/mm3 Lymph # (Auto) 1.5 (1.0-4.8) th/mm3 [place] # (Auto) 0.7 (0.0-0.9) th/mm3 Eos # (Auto) 0.2 (0.0-0.4) th/mm3 Baso # (Auto) 0.1 (0.0-0.2) th/mm3 Comprehensive Metabolic Panel 09/01/18 09/02/18 Range/Units 05:32 03:30 Sodium 145 142 (136-145) meq/L Potassium 3.6 3.7 (3.5-5.1) meq/L Chloride 110 H 107 (98-107) meq/L Carbon Dioxide 28.0 29.1 (21.0-32.0) meq/L BUN 16 15 (7-18) mg/dL Creatinine 0.77 0.78 (0.60-1.30) mg/dL Calcium 8.0 L 8.2 L (8.5-10.1) mg/dL AST 32 (15-37) U/L ALT 38 (12-78) U/L Alkaline Phosphatase 129 H (45-117) U/L Total Protein 6.8 (6.4-8.2) g/dL Albumin 2.5 L (3.4-5.0) g/dL Intake and Output 09/02/18 09/02/18 09/02/18 06:59 14:59 22:59 Intake Total 1440 / 1440 Output Total 500 / 500 Balance 940 / 940 Intake: Oral 1440 / 1440 Output: Urine Amount (Catheter) 500 / 500 Condom 500 / 500 Other: Date of Last Bowel Movement 08/31/18 08/31/18 08/31/18 Weight 75 kg Assessment and Plan - Assessment (1) Severe aortic stenosis Code(s): I35.0 - Nonrheumatic aortic (valve) stenosis Status: Acute (2) Congestive heart failure Code(s): I50.9 - Heart failure, unspecified Status: Acute (3) Chronic kidney disease Code(s): N18.9 - Chronic kidney disease, unspecified Status: Acute (4) COPD (chronic obstructive pulmonary disease) Code(s): J44.9 - Chronic obstructive pulmonary disease, unspecified Status: Acute (5) Atrial fibrillation Code(s): I48.91 - Unspecified atrial fibrillation Status: Acute - Plan Severe aortic valve stenosis Appreciate second opinion from Dr. Zapata. Continue with physical rehabilitation. Planning for TAVR next week. Patient would likely need physical rehabilitation as an inpatient following the procedure. Acute systolic congestive heart failure Severely reduced left ventricular systolic function, but clinically improving. Converted angiotensin converting enzyme inhibitor to Entresto, tolerate. Atrial fibrillation Patient has tachycardia bradycardia syndrome. s/p PPM. Tolerating low-dose beta -meg. Cardiomyopathy, nonischemic Cardiac catheterization showed only mild nonobstructive coronary artery disease. Patient does have moderate mitral regurgitation, but there is significant afterload with his aortic valve stenosis which will hopefully improve after valve replacement. Patient already has biventricular implantable cardioverter defibrillator in place. Pulmonary embolism Patient will need at least 3-6 months of anticoagulation with Coumadin. I suspect patient will likely be on lifelong anticoagulation secondary to atrial fibrillation and increased CHADS-VASc score. Continue intravenous anticoagulation until his procedure. 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 Patient will need transition to Coumadin following transcatheter aortic valve replacement. [facility] cardiology will continue care this patient tomorrow.
[2018-09-03 04:43] LABS: Anion Gap 6 meq/L (5-15); Blood Urea Nitrogen 14 mg/dL (7-18); Calcium 7.9 mg/dL (8.5-10.1); Carbon Dioxide 27.4 meq/L (21.0-32.0); Chloride 110 meq/L (98-107); Glomerular Filtration Rate Greater Than 89 mL/min (>89); Glucose,Random 84 mg/dL (74-106); Sodium 143 meq/L (136-145)
--- NOTE | 2018-09-03 08:18 | P.PNCA ---
Subjective Interval history: showing improvement no complaints Medications and Allergies Active Medications: Active Medications Acetaminophen (Tylenol) 650 mg PO Q6H PRN PRN Reason: PAIN 1-10 AND/OR FEVER >101F Last Admin: 09/01/18 20:28 Dose: 650 mg Al Hydroxide/Mg Hydroxide (Milk Of Magnesia Liq) 30 ml PO Q12H PRN PRN Reason: Mild Constipation Albuterol (Duoneb Neb (Prn)) 1 ampul NEB Q2HR NEB PRN PRN Reason: WHEEZING Aspirin (Ecotrin) 81 mg PO DAILY [facility] Last Admin: 09/02/18 08:53 Dose: 81 mg Bisacodyl (Dulcolax Supp) 10 mg RECTAL DAILY PRN PRN Reason: SEVERE CONSITIPATION Carvedilol (Coreg) 3.125 mg PO BID [facility] Last Admin: 09/02/18 21:48 Dose: 3.125 mg Dextrose (D50w Vial) 50 ml IV.PUSH UNSCH PRN PRN Reason: PER HYPOGLYCEMIA PROTOCOL Last Admin: 08/29/18 17:57 Dose: 50 ml Famotidine (Pepcid Pf Inj) 20 mg IV.PUSH Q12HR [facility] Last Admin: 09/02/18 21:48 Dose: 20 mg Ferrous Sulfate (Ferosul) 325 mg PO BID@1200,1700 [facility] Last Admin: 09/02/18 17:36 Dose: 325 mg Folic Acid (Folic Acid) 1 mg PO DAILY [facility] Last Admin: 09/02/18 08:53 Dose: 1 mg Glucagon (Glucagon Inj) 1 mg OTHER PRN PRN PRN Reason: for Hypoglycemia Protocol Argatroban 250 mg/ Sodium (Chloride) 250 mls @ 0 mls/hr IV.CONT TITRATE PRN; Protocol PRN Reason: Per Protocol Last Admin: 09/02/18 14:00 Dose: 2 mcg/kg/min, 8.82 mls/hr Insulin Aspart (Novolog Insulin Correctional Sugar Inj) 0 unit SQ ACHS [facility]; Protocol Last Admin: 09/02/18 21:53 Dose: Not Given Lactulose (Lactulose Liq) 30 ml PO DAILY PRN PRN Reason: SEVERE CONSITIPATION Methotrexate (Rheumatrex) 15 mg PO Fr [facility] Last Admin: 08/31/18 09:16 Dose: 15 mg Ondansetron HCl (Zofran Inj) 4 mg IV.PUSH Q6H PRN PRN Reason: NAUSEA OR VOMITING Sacubitril/Valsartan (Entresto 24 Mg/26 Mg Tablet) 1 tab PO BID [facility] Last Admin: 09/02/18 21:48 Dose: 1 tab Senna/Docusate Sodium ([place]-Colace) 1 tab PO BID [facility] Last Admin: 09/02/18 21:48 Dose: 1 tab Sennosides (Senokot) 17.2 mg PO Q12H PRN PRN Reason: Moderate Constipation Sodium Chloride (Ns Flush) 2 ml IV.FLUSH BID [facility] Last Admin: 09/03/18 07:02 Dose: Not Given Sodium Chloride (Ns Flush) 2 ml IV.FLUSH PRN PRN PRN Reason: FLUSH AFTER USING IV ACCESS Vitamin D (Vitamin D3) 1,000 unit PO DAILY [facility] Last Admin: 09/02/18 08:53 Dose: 1,000 unit Allergies Allergy/AdvReac Type Severity Reaction Status Date / Time gemfibrozil Allergy Redness of Verified 08/29/18 00:15 Skin Home Medications Medication Instructions Recorded Confirmed Type aspirin 81 mg PO DAILY 08/29/18 08/29/18 History cholecalciferol (vitamin D3) 1,000 unit PO DAILY 08/29/18 08/29/18 History [Vitamin D3] diltiazem HCl 120 mg PO DAILY 08/29/18 08/29/18 History fenofibrate PO DAILY 08/29/18 History folic acid 1 mg PO DAILY 08/29/18 08/29/18 History furosemide 20 mg PO DAILY 08/29/18 08/29/18 History lisinopril 20 mg PO DAILY 08/29/18 08/29/18 History metformin 500 mg PO QPM 08/29/18 08/29/18 History methotrexate sodium 15 mg PO FR 08/29/18 08/29/18 History umeclidinium-vilanterol [Anoro 1 inh INHALATION Q24H 08/29/18 08/29/18 History Ellipta] warfarin 2.5 mg PO DAILY 08/29/18 08/29/18 History Physical Exam Vital signs: Vital Signs 09/02/18 09:00 09/02/18 10:00 09/02/18 11:00 Temperature Pulse Rate 78 80 79 Respiratory Rate Blood Pressure Pulse Oximetry 09/02/18 12:00 09/02/18 13:00 09/02/18 13:57 Temperature 97 F L Pulse Rate 75 78 Respiratory Rate 20 Blood Pressure 85/54 L 92/55 L Pulse Oximetry 99 09/02/18 14:00 09/02/18 15:00 09/02/18 15:29 Temperature 97 F L Pulse Rate 79 81 80 Respiratory Rate 20 Blood Pressure 109/70 Pulse Oximetry 97 09/02/18 16:00 09/02/18 17:00 09/02/18 18:00 Temperature Pulse Rate 78 82 79 Respiratory Rate Blood Pressure Pulse Oximetry 09/02/18 20:00 09/02/18 21:00 09/02/18 22:00 Temperature 98.9 F Pulse Rate 79 79 79 Respiratory Rate 18 Blood Pressure 101/60 Pulse Oximetry 95 09/02/18 23:00 09/03/18 00:00 09/03/18 01:00 Temperature 98.7 F Pulse Rate 81 80 81 Respiratory Rate 18 Blood Pressure 99/65 L Pulse Oximetry 98 09/03/18 02:00 09/03/18 03:00 09/03/18 04:00 Temperature Pulse Rate 79 79 78 Respiratory Rate 18 Blood Pressure 105/66 Pulse Oximetry 96 09/03/18 05:00 09/03/18 05:57 Temperature Pulse Rate 78 78 Respiratory Rate Blood Pressure Pulse Oximetry Intake & Output 09/02/18 09/03/18 09/03/18 18:59 06:59 18:59 Intake Total 1210 / 1210 240 / 240 500 / 500 Output Total 500 / 500 600 / 600 Balance 710 / 710 -360 / -360 500 / 500 Weight 74 kg Intake: IV 250 / 250 500 / 500 Novastan Inj 250 MG In NS Inj 250 / 250 247.5 ML @ Per Protocol IV.CONT TITRATE PRN Rx#:[id number] Oral 960 / 960 240 / 240 Output: Urine 500 / 500 Urine Amount (Catheter) 600 / 600 Condom 600 / 600 Other: Date of Last Bowel Movement 09/02/18 # Bowel Movements 1 - Constitutional no acute distress - Routine HEENT Exam Head: Present: normocephalic Eye: Present: EOMI, PERRL ENT: Present: mucous membranes moist - Routine Neck Exam Absent: JVD - Routine Respiratory Exam Present: CTA bilaterally - Routine Cardiovascular Exam Present: RRR, murmur - Routine Abdominal Exam Present: soft, normoactive bowel sounds - Routine Extremities Exam Absent: edema - Routine Neurological Exam Present: oriented X3, CN II-XII intact. Absent: sensory deficit, motor deficit - Urinary Catheter Management Indwelling Urethral Catheter Cath placed during this visit: no Condom Cath placed during this visit: no Results 09/02/18 03:30 09/03/18 03:47 Cardiac Enzymes 09/02/18 Range/Units 03:30 AST 32 (15-37) U/L Coagulation 09/01/18 09/02/18 09/03/18 Range/Units 22:40 03:30 03:47 APTT 44.9 H 58.7 H D 58.5 H (23.4-31.7) sec CBC 09/02/18 Range/Units 03:30 WBC 8.1 (4.0-11.0) th/mm3 RBC 4.48 L (4.50-5.90) mil/mm3 Hgb 14.8 (13.0-17.0) gm/dL Hct 44.6 (39.0-51.0) % Plt Count 454 H (150-450) th/mm3 Neut # (Auto) 5.7 (1.8-7.7) th/mm3 Lymph # (Auto) 1.5 (1.0-4.8) th/mm3 [place] # (Auto) 0.7 (0.0-0.9) th/mm3 Eos # (Auto) 0.2 (0.0-0.4) th/mm3 Baso # (Auto) 0.1 (0.0-0.2) th/mm3 Comprehensive Metabolic Panel 09/02/18 09/03/18 Range/Units 03:30 03:47 Sodium 142 143 (136-145) meq/L Potassium 3.7 4.0 (3.5-5.1) meq/L Chloride 107 110 H (98-107) meq/L Carbon Dioxide 29.1 27.4 (21.0-32.0) meq/L BUN 15 14 (7-18) mg/dL Creatinine 0.78 0.83 (0.60-1.30) mg/dL Calcium 8.2 L 7.9 L (8.5-10.1) mg/dL AST 32 (15-37) U/L ALT 38 (12-78) U/L Alkaline Phosphatase 129 H (45-117) U/L Total Protein 6.8 (6.4-8.2) g/dL Albumin 2.5 L (3.4-5.0) g/dL Intake and Output 09/02/18 09/03/18 09/03/18 22:59 06:59 14:59 Intake Total 960 / 960 240 / 240 500 / 500 Output Total 500 / 500 600 / 600 Balance 460 / 460 -360 / -360 500 / 500 Intake: IV 500 / 500 Oral 960 / 960 240 / 240 Output: Urine 500 / 500 Urine Amount (Catheter) 600 / 600 Condom 600 / 600 Other: Date of Last Bowel Movement 09/02/18 # Bowel Movements 1 Weight 74 kg Assessment and Plan - Plan Severe aortic valve stenosis Continue with physical rehabilitation. Planning for TAVR next week. Patient would likely need physical rehabilitation as an inpatient following the procedure. Acute systolic congestive heart failure Severely reduced left ventricular systolic function, but clinically improving. continue guideline directed medical therapy. Atrial fibrillation Patient has tachycardia bradycardia syndrome. s/p PPM. Tolerating low-dose beta -meg. Cardiomyopathy, nonischemic Cardiac catheterization showed only mild nonobstructive coronary artery disease. Patient does have moderate mitral regurgitation, but there is significant afterload with his aortic valve stenosis which will hopefully improve after valve replacement. Patient already has biventricular implantable cardioverter defibrillator in place. Pulmonary embolism Patient will need at least 3-6 months of anticoagulation with Coumadin. I suspect patient will likely be on lifelong anticoagulation secondary to atrial fibrillation and increased CHADS-VASc score. Continue intravenous anticoagulation until his procedure. 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 Patient will need transition to Coumadin following transcatheter aortic valve replacement.
[2018-09-03] MEDS: Furosemide 40 MG Tablet PO SCH (08:49)
[2018-09-03] MEDS: Insulin NovoLOG Aspart Correctional Sugar Inj SQ SCH ×4 (08:49→21:15)
[2018-09-03] MEDS: Folic Acid 1 MG Tablet PO SCH (08:49)
[2018-09-03] MEDS: Senna/Docusate Sodium 8.6/50 MG Tablet PO SCH ×2 (08:54→21:15)
[2018-09-03] MEDS: Famotidine PF Inj 20 MG/2 ML Vial IV.PUSH SCH ×2 (08:54→21:15)
[2018-09-03] MEDS: Ferrous Sulfate 325 MG Tablet PO SCH ×2 (12:31→17:14)
--- NOTE | 2018-09-03 15:22 | P.PNONC ---
Subjective Interval history: Patient sitting in chair, in no acute distress. His is at the bedside. Patient reports feeling tired. Denies any bleeding. Per his the TAVR is scheduled for Monday. Objective Vital Signs/Intake & Output: Vital Signs 09/02/18 15:29 09/02/18 16:00 09/02/18 17:00 Temperature 97 F L Pulse Rate 80 78 82 Respiratory Rate 20 Blood Pressure 109/70 Pulse Oximetry 97 09/02/18 18:00 09/02/18 20:00 09/02/18 21:00 Temperature 98.9 F Pulse Rate 79 79 79 Respiratory Rate 18 Blood Pressure 101/60 Pulse Oximetry 95 09/02/18 22:00 09/02/18 23:00 09/03/18 00:00 Temperature 98.7 F Pulse Rate 79 81 80 Respiratory Rate 18 Blood Pressure 99/65 L Pulse Oximetry 98 09/03/18 01:00 09/03/18 02:00 09/03/18 03:00 Temperature Pulse Rate 81 79 79 Respiratory Rate Blood Pressure Pulse Oximetry 09/03/18 04:00 09/03/18 05:00 09/03/18 05:57 Temperature Pulse Rate 78 78 78 Respiratory Rate 18 Blood Pressure 105/66 Pulse Oximetry 96 09/03/18 07:00 09/03/18 08:00 09/03/18 09:00 Temperature 97.9 F Pulse Rate 79 79 83 Respiratory Rate 18 Blood Pressure 100/65 Pulse Oximetry 95 09/03/18 10:00 09/03/18 11:00 09/03/18 12:00 Temperature 98.2 F Pulse Rate 85 79 80 Respiratory Rate 18 Blood Pressure 84/53 L Pulse Oximetry 98 Intake & Output 09/02/18 09/03/18 09/03/18 18:59 06:59 18:59 Intake Total 1210 / 1210 240 / 240 500 / 500 Output Total 500 / 500 600 / 600 Balance 710 / 710 -360 / -360 500 / 500 Weight 74 kg Intake: IV 250 / 250 500 / 500 Novastan Inj 250 MG In NS Inj 250 / 250 247.5 ML @ Per Protocol IV.CONT TITRATE PRN Rx#:[id number] Oral 960 / 960 240 / 240 Output: Urine 500 / 500 Urine Amount (Catheter) 600 / 600 Condom 600 / 600 Other: Date of Last Bowel Movement 09/02/18 09/03/18 # Bowel Movements 1 Result Diagrams: 09/02/18 03:30 09/03/18 03:47 Laboratory Results: Laboratory Results - last 24 hr 09/02/18 09/02/18 09/03/18 17:20 20:19 03:47 APTT 58.5 H Sodium Potassium Chloride Carbon Dioxide Anion Gap BUN Creatinine Estimated GFR POC Glucose 114 H 94 Random Glucose Calcium 09/03/18 09/03/18 09/03/18 03:47 07:55 11:17 APTT Sodium 143 Potassium 4.0 Chloride 110 H Carbon Dioxide 27.4 Anion Gap 6 BUN 14 Creatinine 0.83 Estimated GFR Greater than 89 POC Glucose 79 116 H Random Glucose 84 Calcium 7.9 L 09/03/18 15:13 APTT Sodium Potassium Chloride Carbon Dioxide Anion Gap BUN Creatinine Estimated GFR POC Glucose 107 Random Glucose Calcium Culture Results: Microbiology 08/29/18 12:50 Urine Culture - Final Catheterized Urine No growth in 48 hours Medications: Active Medications Generic Name Dose Route Start Last Admin Trade Name Freq PRN Reason Stop Dose Admin Acetaminophen 650 mg 08/29/18 00:55 09/01/18 20:28 Tylenol PO 650 mg Q6H PRN Administration PAIN 1-10 AND/OR FEVER >101F Aspirin 81 mg 08/29/18 09:00 09/03/18 08:49 Ecotrin PO 81 mg DAILY TONY Administration Carvedilol 3.125 mg 08/30/18 21:00 09/03/18 08:49 Coreg PO 3.125 mg BID TONY Administration Dextrose 50 ml 08/29/18 01:44 08/29/18 17:57 D50w Vial IV.PUSH 50 ml UNSCH PRN Administration PER HYPOGLYCEMIA PROTOCOL Famotidine 20 mg 08/29/18 09:00 09/03/18 08:54 Pepcid Pf Inj IV.PUSH Not Given Q12HR TONY Ferrous Sulfate 325 mg 08/30/18 12:00 09/03/18 12:31 Ferosul PO 325 mg BID@1200,1700 [facility]ON[facility] Administration Folic Acid 1 mg 08/29/18 09:00 09/03/18 08:49 Folic Acid PO 1 mg DAILY [facility] Administration Furosemide 40 mg 09/03/18 09:00 09/03/18 08:49 Lasix PO 40 mg DAILY TONY Administration Argatroban 250 mg/ Sodium 250 mls @ 0 mls/hr 08/29/18 02:30 09/02/18 14:00 Chloride IV.CONT 2 mcg/kg/min TITRATE PRN 8.82 mls/hr Per Protocol Administration Protocol Per Protocol Insulin Aspart 0 unit 09/02/18 12:00 09/03/18 12:11 Novolog Insulin Correctional Sugar Inj SQ Not Given ACHS TONY Protocol Methotrexate 15 mg 08/31/18 09:00 08/31/18 09:16 Rheumatrex PO 15 mg Fr [facility]Y Administration Sacubitril/Valsartan 1 tab 08/30/18 21:00 09/03/18 08:49 Entresto 24 Mg/26 Mg Tablet PO 1 tab BID [facility] Administration Senna/Docusate Sodium 1 tab 08/29/18 09:00 09/03/18 08:54 Georgiana-Colace PO Not Given BID [facility] Sodium Chloride 2 ml 08/29/18 09:00 09/03/18 08:54 Ns Flush IV.FLUSH 2 ml BID [facility] Administration Vitamin D 1,000 unit 08/29/18 09:00 09/03/18 08:49 Vitamin D3 PO 1,000 unit DAILY [facility] Administration Objective Remarks: GENERAL: Elderly male patient, no acute distress. SKIN: Warm and dry. Steri-Strips to left chest wall, dry/intact. HEAD: Normocephalic. EYES: No scleral icterus. No injection or drainage. NECK: Supple, trachea midline. CARDIOVASCULAR: Distant heart sounds. RESPIRATORY: Posterior breath sounds clear equal bilaterally. No accessory muscle use. GASTROINTESTINAL: Abdomen soft, non-tender, nondistended. EXTREMITIES: No cyanosis, or edema. MUSCULOSKELETAL: Adequate muscle tone. NEUROLOGICAL: No obvious focal deficit. Awake, alert. Assessment/Plan - Plan 77-year-old male with history of heparin-induced thrombocytopenia diagnosed at [facility] admitted with shortness of breath known to have severe aortic stenosis. He is being evaluated for TAVR procedure and this is tentatively planned for 09/05. 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 1. Continue argatroban drip. Monitor for bleeding. Continue to monitor APTT. 2. Check liver enzymes in a.m. 3. Repeat CBC in the a.m. - Attending Statement Pt seen in [id number]. No bleeding. More responsive. Hb and platelets stable. Agree with plan. Follow up liver enzymes.
--- NOTE | 2018-09-03 16:10 | P.PNIM ---
Subjective Interval history: No new complaints. Physical Exam Vital signs: Last Vital Signs Temp 97.5 F L 09/03/18 15:57 Pulse 82 09/03/18 16:00 Resp 18 09/03/18 15:57 BP 108/72 09/03/18 15:57 Pulse Ox 97 09/03/18 15:57 Narrative: heart irreg/syst murm lsb lung good air entry abd s/nt ext no edema Results Labs CBC & Chem 7: 09/02/18 03:30 09/03/18 03:47 Assessment and Plan Plan 1. Severe AVS 2. Acute Systolic CHF NICM 3. atrial fibrillation 4. 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 Dysphagia 7.general Weakness 8.DM 9. hematuria. - Aggressive PT daily . - hopefully jose simental soon. - Speech eval. Mod Barium swallow 08/31 - tolerating PO diet - per nursing difficulties with - SSI - blood pressures trending hypotensive - Case d/w Cardiology, Dr. Sargent (09/03). - Stop entresto. Start lisiopril 2.5mg daily - coreg, asa, lasix. monitor na level. continue argatroban until surgery and then plan for antiplt plus coumadin. monitor for worsening hematuria. had some confusion 08/31. ct head negative for bleed.. given some d5w for hypernatremia which corrected. consulted CM for [facility]. This pt would benefit. hopefully dc follwing his TAVR on Monday. Tentative plan for TAVR Monday.
[2018-09-04 04:23] LABS: Baso % (Auto) 0.8 % (0.0-2.0); Eos # (Auto) 0.1 th/mm3 (0.0-0.4); Eos % (Auto) 2.6 % (0.0-4.0); Hematocrit 39.5 % (39.0-51.0); Lymph # (Auto) 1.2 th/mm3 (1.0-4.8); Lymph % (Auto) 21.8 % (9.0-44.0); Mean Corpuscular Hemoglobin 32.9 pg (27.0-34.0); Mean Corpuscular Volume 99.6 fL (80.0-100.0); Mean Platelet Volume 7.8 fL (7.0-11.0); Mono # (Auto) 0.6 th/mm3 (0.0-0.9); Mono % (Auto) 10.4 % (0.0-8.0); Neut # (Auto) 3.6 th/mm3 (1.8-7.7); Neut % (Auto) 64.4 % (16.0-70.0); Platelet Count 390 th/mm3 (150-450); Red Blood Count 3.97 mil/mm3 (4.50-5.90); Red Cell Distribution Width 15.2 % (11.6-17.2); White Blood Count 5.6 th/mm3 (4.0-11.0)
[2018-09-04 04:47] LABS: Albumin 2.4 g/dL (3.4-5.0); Anion Gap 7 meq/L (5-15); Aspartate Aminotransferase 31 U/L (15-37); Blood Urea Nitrogen 12 mg/dL (7-18); Calcium 7.9 mg/dL (8.5-10.1); Carbon Dioxide 26.2 meq/L (21.0-32.0); Chloride 108 meq/L (98-107); Glomerular Filtration Rate Greater Than 89 mL/min (>89); Glucose,Random 80 mg/dL (74-106); Potassium 3.6 meq/L (3.5-5.1); Sodium 141 meq/L (136-145)
[2018-09-04 04:48] LABS: Alanine Aminotransferase 34 U/L (12-78)
[2018-09-04 04:51] LABS: Alkaline Phosphatase 111 U/L (45-117); Total Protein 6.1 g/dL (6.4-8.2)
--- NOTE | 2018-09-04 08:07 | P.PNCA ---
Subjective Interval history: Patient feels stable. No chest pain, dyspnea. No events overnight. Planning for TAVR tomorrow. tele - 15b & 7b NSVT yesterday. Medications and Allergies Active Medications: Active Medications Acetaminophen (Tylenol) 650 mg PO Q6H PRN PRN Reason: PAIN 1-10 AND/OR FEVER >101F Last Admin: 09/01/18 20:28 Dose: 650 mg Al Hydroxide/Mg Hydroxide (Milk Of Magnesia Liq) 30 ml PO Q12H PRN PRN Reason: Mild Constipation Albuterol (Duoneb Neb (Prn)) 1 ampul NEB Q2HR NEB PRN PRN Reason: WHEEZING Aspirin (Ecotrin) 81 mg PO DAILY [facility] Last Admin: 09/03/18 08:49 Dose: 81 mg Bisacodyl (Dulcolax Supp) 10 mg RECTAL DAILY PRN PRN Reason: SEVERE CONSITIPATION Carvedilol (Coreg) 3.125 mg PO BID [facility] Last Admin: 09/03/18 21:15 Dose: 3.125 mg Dextrose (D50w Vial) 50 ml IV.PUSH UNSCH PRN PRN Reason: PER HYPOGLYCEMIA PROTOCOL Last Admin: 08/29/18 17:57 Dose: 50 ml Famotidine (Pepcid Pf Inj) 20 mg IV.PUSH Q12HR [facility] Last Admin: 09/03/18 21:15 Dose: 20 mg Ferrous Sulfate (Ferosul) 325 mg PO BID@1200,1700 [facility] Last Admin: 09/03/18 17:14 Dose: 325 mg Folic Acid (Folic Acid) 1 mg PO DAILY [facility] Last Admin: 09/03/18 08:49 Dose: 1 mg Furosemide (Lasix) 40 mg PO DAILY [facility] Last Admin: 18 08:49 Dose: 40 mg Glucagon (Glucagon Inj) 1 mg OTHER PRN PRN PRN Reason: for Hypoglycemia Protocol Argatroban 250 mg/ Sodium (Chloride) 250 mls @ 0 mls/hr IV.CONT TITRATE PRN; Protocol PRN Reason: Per Protocol Last Admin: 09/02/18 14:00 Dose: 2 mcg/kg/min, 8.82 mls/hr Insulin Aspart (Novolog Insulin Correctional Sugar Inj) 0 unit SQ ACHS [facility]; Protocol Last Admin: 09/03/18 21:15 Dose: Not Given Lactulose (Lactulose Liq) 30 ml PO DAILY PRN PRN Reason: SEVERE CONSITIPATION Lisinopril (Prinivil) 2.5 mg PO DAILY [facility] Methotrexate (Rheumatrex) 15 mg PO [facility] Last Admin: 08/31/18 09:16 Dose: 15 mg Ondansetron HCl (Zofran Inj) 4 mg IV.PUSH Q6H PRN PRN Reason: NAUSEA OR VOMITING Senna/Docusate Sodium ([place]-Colace) 1 tab PO BID [facility] Last Admin: 09/03/18 21:15 Dose: 1 tab Sennosides (Senokot) 17.2 mg PO Q12H PRN PRN Reason: Moderate Constipation Sodium Chloride (Ns Flush) 2 ml IV.FLUSH BID [facility] Last Admin: 09/03/18 21:15 Dose: 2 ml Sodium Chloride (Ns Flush) 2 ml IV.FLUSH PRN PRN PRN Reason: FLUSH AFTER USING IV ACCESS Vitamin D (Vitamin D3) 1,000 unit PO DAILY [facility] Last Admin: 09/03/18 08:49 Dose: 1,000 unit Allergies Allergy/AdvReac Type Severity Reaction Status Date / Time gemfibrozil Allergy Redness of Verified 08/29/18 00:15 Skin Home Medications Medication Instructions Recorded Confirmed Type aspirin 81 mg PO DAILY 08/29/18 08/29/18 History cholecalciferol (vitamin D3) 1,000 unit PO DAILY 08/29/18 08/29/18 History [Vitamin D3] diltiazem HCl 120 mg PO DAILY 08/29/18 08/29/18 History fenofibrate PO DAILY 08/29/18 History folic acid 1 mg PO DAILY 08/29/18 08/29/18 History furosemide 20 mg PO DAILY 08/29/18 08/29/18 History lisinopril 20 mg PO DAILY 08/29/18 08/29/18 History metformin 500 mg PO QPM 08/29/18 08/29/18 History methotrexate sodium 15 mg PO FR 08/29/18 08/29/18 History umeclidinium-vilanterol [Anoro 1 inh INHALATION Q24H 08/29/18 08/29/18 History Ellipta] warfarin 2.5 mg PO DAILY 08/29/18 08/29/18 History Physical Exam Vital signs: Vital Signs 09/03/18 09:00 09/03/18 10:00 09/03/18 11:00 Temperature Pulse Rate 83 85 79 Respiratory Rate Blood Pressure Pulse Oximetry 09/03/18 12:00 09/03/18 13:00 09/03/18 14:00 Temperature 98.2 F Pulse Rate 80 79 80 Respiratory Rate 18 Blood Pressure 84/53 L Pulse Oximetry 98 09/03/18 15:00 09/03/18 15:57 09/03/18 16:00 Temperature 97.5 F L Pulse Rate 79 79 82 Respiratory Rate 18 Blood Pressure 108/72 Pulse Oximetry 97 09/03/18 17:00 09/03/18 18:00 09/03/18 19:00 Temperature Pulse Rate 80 84 80 Respiratory Rate Blood Pressure Pulse Oximetry 09/03/18 20:00 09/03/18 21:00 09/03/18 22:00 Temperature 97.8 F Pulse Rate 82 82 82 Respiratory Rate 20 Blood Pressure 103/74 Pulse Oximetry 98 09/03/18 23:00 09/03/18 23:40 09/04/18 00:00 Temperature 97.8 F Pulse Rate 82 82 82 Respiratory Rate 20 Blood Pressure 114/74 Pulse Oximetry 96 09/04/18 01:00 09/04/18 02:00 09/04/18 03:00 Temperature Pulse Rate 79 84 80 Respiratory Rate Blood Pressure Pulse Oximetry 09/04/18 03:41 09/04/18 04:00 09/04/18 05:00 Temperature Pulse Rate 80 79 80 Respiratory Rate 18 Blood Pressure 114/66 Pulse Oximetry 97 09/04/18 06:00 Temperature Pulse Rate 80 Respiratory Rate Blood Pressure Pulse Oximetry Intake & Output 09/03/18 09/04/18 09/04/18 18:59 06:59 18:59 Intake Total 1100 / 1100 100 / 100 Output Total 1200 / 1200 600 / 600 Balance -100 / -100 -500 / -500 Weight 73.5 kg Intake: IV 500 / 500 Oral 600 / 600 100 / 100 Output: Urine 1200 / 1200 600 / 600 Other: Date of Last Bowel Movement 09/03/18 09/03/18 # Bowel Movements 2 1 Narrative: GENERAL: Well-developed well-nourished. In no acute distress. NG tube in place. NECK: No carotid bruits. No JVD. CARDIOVASCULAR: Regular rate and rhythm. 09/23 systolic murmur appreciated. Device in place left chest wall, healing. RESPIRATORY: No accessory muscle use. Clear to auscultation. Breath sounds equal bilaterally. MUSCULOSKELETAL: No clubbing or cyanosis. No edema. NEUROLOGICAL: Awake and alert. Normal speech. - Urinary Catheter Management Indwelling Urethral Catheter Cath placed during this visit: no Condom Cath placed during this visit: no Results 09/04/18 04:16 09/04/18 04:16 Cardiac Enzymes 09/04/18 Range/Units 04:16 AST 31 (15-37) U/L Coagulation 09/03/18 09/04/18 Range/Units 03:47 04:16 APTT 58.5 H 61.6 H (23.4-31.7) sec CBC 09/04/18 Range/Units 04:16 WBC 5.6 (4.0-11.0) th/mm3 RBC 3.97 L (4.50-5.90) mil/mm3 Hgb 13.0 (13.0-17.0) gm/dL Hct 39.5 (39.0-51.0) % Plt Count 390 (150-450) th/mm3 Neut # (Auto) 3.6 (1.8-7.7) th/mm3 Lymph # (Auto) 1.2 (1.0-4.8) th/mm3 [place] # (Auto) 0.6 (0.0-0.9) th/mm3 Eos # (Auto) 0.1 (0.0-0.4) th/mm3 Baso # (Auto) 0.0 (0.0-0.2) th/mm3 Comprehensive Metabolic Panel 09/03/18 09/04/18 Range/Units 03:47 04:16 Sodium 143 141 (136-145) meq/L Potassium 4.0 3.6 (3.5-5.1) meq/L Chloride 110 H 108 H (98-107) meq/L Carbon Dioxide 27.4 26.2 (21.0-32.0) meq/L BUN 14 12 (7-18) mg/dL Creatinine 0.83 0.83 (0.60-1.30) mg/dL Calcium 7.9 L 7.9 L (8.5-10.1) mg/dL AST 31 (15-37) U/L ALT 34 (12-78) U/L Alkaline Phosphatase 111 (45-117) U/L Total Protein 6.1 L D (6.4-8.2) g/dL Albumin 2.4 L (3.4-5.0) g/dL Intake and Output 09/03/18 09/04/18 09/04/18 22:59 06:59 14:59 Intake Total 600 / 600 100 / 100 Output Total 1200 / 1200 600 / 600 Balance -600 / -600 -500 / -500 Intake: Oral 600 / 600 100 / 100 Output: Urine 1200 / 1200 600 / 600 Other: Date of Last Bowel Movement 09/03/18 09/03/18 # Bowel Movements 2 1 Weight 73.5 kg Assessment and Plan - Plan Severe aortic valve stenosis Continue with physical rehabilitation. Planning for TAVR tomorrow. Patient would likely need physical rehabilitation as an inpatient following the procedure. Acute systolic congestive heart failure Severely reduced left ventricular systolic function, but clinically improving. continue guideline directed medical therapy. Atrial fibrillation Patient has tachycardia bradycardia syndrome. s/p BiVICD. Tolerating beta- meg. Cardiomyopathy, nonischemic Cardiac catheterization showed only mild nonobstructive coronary artery disease. Patient does have moderate mitral regurgitation, but there is significant afterload with his aortic valve stenosis which will hopefully improve after valve replacement. Patient already has biventricular implantable cardioverter defibrillator in place. Pulmonary embolism Patient will need at least 3-6 months of anticoagulation with Coumadin. I suspect patient will likely be on lifelong anticoagulation secondary to atrial fibrillation and increased CHADS-VASc score. Continue intravenous anticoagulation until his procedure. 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 Patient will need transition to Coumadin following transcatheter aortic valve replacement.
[2018-09-04] MEDS: Lisinopril 5 MG Tablet PO SCH (08:49)
[2018-09-04] MEDS: Folic Acid 1 MG Tablet PO SCH (08:49)
[2018-09-04] MEDS: Furosemide 40 MG Tablet PO SCH (08:49)
[2018-09-04] MEDS: Famotidine PF Inj 20 MG/2 ML Vial IV.PUSH SCH ×2 (08:50→22:01)
[2018-09-04] MEDS: Senna/Docusate Sodium 8.6/50 MG Tablet PO SCH ×2 (08:50→22:02)
[2018-09-04] MEDS: Insulin NovoLOG Aspart Correctional Sugar Inj SQ SCH ×4 (08:50→22:05)
[2018-09-04] MEDS: Argatroban Inj 250 MG in Sodium Chlor 0.9% Inj 247.5 ML IV.CONT PRN (08:54)
--- NOTE | 2018-09-04 09:58 | P.PNCV ---
- Note Subjective/Hospital Course: 77-year-old gentleman with a known history of systolic congestive heart failure presented to emergency room at [facility] August 06, 2018 with complaints of palpitation and shortness of breath. Upon arrival to emergency room there he was found to be in A. fib with RVR. His heart rate was in 130s, he was given 1 time dose of IV diltiazem with significant improvement in his overall heart rate. He was again found to be in the acute on chronic congestive heart failure. He was given a dose of IV Lasix with improvement of his breathing but continued to require some oxygen support and subsequently been admitted to the hospital for additional evaluation and management. He has a long-standing history of atrial fibrillation on Coumadin. His echocardiogram showed ejection fraction of 30-35% with severe aortic stenosis and moderate MR. His hospital course was complicated with acute kidney injury, bradycardia, cardiogenic shock, respiratory failure requiring intubation, and the shock liver. He had a angiogram of his coronaries on 08/13 that showed no significant coronary disease. Apparently the patient became severely bradycardic in the Search Engine Optimization Consultant received atropine, followed by temporary intravenous pacemaker placement. He has arrived in the ICU at [facility] agitated and hypoxemic requiring intubation. Later on he underwent permanent pacemaker placement and successful weaning of the ventilation with extubation. However he has failed swallow evaluation and has been fed with Dobb[place]. He has been transferred to [facility] for possible TAVR evaluation by his assistant principal Dr. Sargent. 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 + Chronic mental status changes 2/2 encephalopathy , improving 09/04 pt up in chair at bedside , tolerating thickened liguids speech following for TAVR in am Objective: Vital Signs - 24 hr 09/03/18 10:00 09/03/18 11:00 09/03/18 12:00 Temperature 98.2 F Pulse Rate 85 79 80 Respiratory Rate 18 Blood Pressure 84/53 L Pulse Oximetry 98 09/03/18 13:00 09/03/18 14:00 09/03/18 15:00 Temperature Pulse Rate 79 80 79 Respiratory Rate Blood Pressure Pulse Oximetry 09/03/18 15:57 09/03/18 16:00 09/03/18 17:00 Temperature 97.5 F L Pulse Rate 79 82 80 Respiratory Rate 18 Blood Pressure 108/72 Pulse Oximetry 97 09/03/18 18:00 09/03/18 19:00 09/03/18 20:00 Temperature 97.8 F Pulse Rate 84 80 82 Respiratory Rate 20 Blood Pressure 103/74 Pulse Oximetry 98 09/03/18 21:00 09/03/18 22:00 09/03/18 23:00 Temperature Pulse Rate 82 82 82 Respiratory Rate Blood Pressure Pulse Oximetry 09/03/18 23:40 09/04/18 00:00 09/04/18 01:00 Temperature 97.8 F Pulse Rate 82 82 79 Respiratory Rate 20 Blood Pressure 114/74 Pulse Oximetry 96 09/04/18 02:00 09/04/18 03:00 09/04/18 03:41 Temperature Pulse Rate 84 80 80 Respiratory Rate 18 Blood Pressure 114/66 Pulse Oximetry 97 09/04/18 04:00 09/04/18 05:00 09/04/18 06:00 Temperature Pulse Rate 79 80 80 Respiratory Rate Blood Pressure Pulse Oximetry GENERAL: awake , alert SKIN: Warm and dry. steri strips in place to left chest wall / pacer insitu HEAD: Normocephalic. EYES: No scleral icterus. No injection or drainage. NECK: Supple, trachea midline. No JVD or lymphadenopathy. CARDIOVASCULAR: irregular rate and rhythm without murmurs, gallops, or rubs. RESPIRATORY: Breath sounds equal bilaterally. No accessory muscle use. GASTROINTESTINAL: Abdomen soft, non-tender, nondistended. MUSCULOSKELETAL: No cyanosis, or edema. BACK: Nontender without obvious deformity. No CVA tenderness. Labs: Laboratory Results - last 12 hr 09/04/18 09/04/18 09/04/18 04:16 04:16 04:16 WBC 5.6 RBC 3.97 L Hgb 13.0 Hct 39.5 MCV 99.6 MCH 32.9 MCHC 33.0 RDW 15.2 Plt Count 390 MPV 7.8 Neut % (Auto) 64.4 Lymph % (Auto) 21.8 [place] % (Auto) 10.4 H Eos % (Auto) 2.6 Baso % (Auto) 0.8 Neut # (Auto) 3.6 Lymph # (Auto) 1.2 [place] # (Auto) 0.6 Eos # (Auto) 0.1 Baso # (Auto) 0.0 WBC Differential . Differential Comment Auto diff final APTT 61.6 H Sodium 141 Potassium 3.6 Chloride 108 H Carbon Dioxide 26.2 Anion Gap 7 BUN 12 Creatinine 0.83 Estimated GFR Greater than 89 Random Glucose 80 Calcium 7.9 L Total Bilirubin 1.1 H AST 31 ALT 34 Alkaline Phosphatase 111 Total Protein 6.1 L D Albumin 2.4 L Result Diagrams: 09/04/18 04:16 09/04/18 04:16 - Plan (1) Severe aortic stenosis Plan: for TAVR in am
[2018-09-04] MEDS: Ferrous Sulfate 325 MG Tablet PO SCH ×2 (12:33→17:11)
--- NOTE | 2018-09-04 15:49 | P.PNONC ---
Subjective Interval history: Patient sleeping on approach, awakens easily to voice. Continues on argatroban drip. He denies any bleeding. No complaints at this time Pending TAVR surgery tomorrow Objective Vital Signs/Intake & Output: Vital Signs 09/03/18 15:57 09/03/18 16:00 09/03/18 17:00 Temperature 97.5 F L Pulse Rate 79 82 80 Respiratory Rate 18 Blood Pressure 108/72 Pulse Oximetry 97 09/03/18 18:00 09/03/18 19:00 09/03/18 20:00 Temperature 97.8 F Pulse Rate 84 80 82 Respiratory Rate 20 Blood Pressure 103/74 Pulse Oximetry 98 09/03/18 21:00 09/03/18 22:00 09/03/18 23:00 Temperature Pulse Rate 82 82 82 Respiratory Rate Blood Pressure Pulse Oximetry 09/03/18 23:40 09/04/18 00:00 09/04/18 01:00 Temperature 97.8 F Pulse Rate 82 82 79 Respiratory Rate 20 Blood Pressure 114/74 Pulse Oximetry 96 09/04/18 02:00 09/04/18 03:00 09/04/18 03:41 Temperature Pulse Rate 84 80 80 Respiratory Rate 18 Blood Pressure 114/66 Pulse Oximetry 97 09/04/18 04:00 09/04/18 05:00 09/04/18 06:00 Temperature Pulse Rate 79 80 80 Respiratory Rate Blood Pressure Pulse Oximetry 09/04/18 07:00 09/04/18 08:00 09/04/18 09:00 Temperature 97.4 F L Pulse Rate 82 80 80 Respiratory Rate 18 Blood Pressure 100/61 Pulse Oximetry 98 09/04/18 10:00 09/04/18 11:00 09/04/18 11:47 Temperature 97.9 F Pulse Rate 79 84 81 Respiratory Rate 18 Blood Pressure 115/72 Pulse Oximetry 96 09/04/18 12:00 09/04/18 13:00 09/04/18 14:00 Temperature Pulse Rate 79 82 80 Respiratory Rate Blood Pressure Pulse Oximetry Intake & Output 09/03/18 09/04/18 09/04/18 18:59 06:59 18:59 Intake Total 1350 / 1350 100 / 100 Output Total 1200 / 1200 600 / 600 Balance 150 / 150 -500 / -500 Weight 73.5 kg Intake: IV 750 / 750 Novastan Inj 250 MG In NS Inj 250 / 250 247.5 ML @ Per Protocol IV.CONT TITRATE PRN Rx#:[id number] Oral 600 / 600 100 / 100 Output: Urine 1200 / 1200 600 / 600 Other: Date of Last Bowel Movement 09/03/18 09/03/18 09/03/18 # Bowel Movements 2 1 Result Diagrams: 09/04/18 04:16 09/04/18 04:16 Laboratory Results: Laboratory Results - last 24 hr 09/03/18 09/04/18 09/04/18 21:13 04:16 04:16 WBC 5.6 RBC 3.97 L Hgb 13.0 Hct 39.5 MCV 99.6 MCH 32.9 MCHC 33.0 RDW 15.2 Plt Count 390 MPV 7.8 Neut % (Auto) 64.4 Lymph % (Auto) 21.8 [place] % (Auto) 10.4 H Eos % (Auto) 2.6 Baso % (Auto) 0.8 Neut # (Auto) 3.6 Lymph # (Auto) 1.2 [place] # (Auto) 0.6 Eos # (Auto) 0.1 Baso # (Auto) 0.0 WBC Differential . Differential Comment Auto diff final APTT Sodium 141 Potassium 3.6 Chloride 108 H Carbon Dioxide 26.2 Anion Gap 7 BUN 12 Creatinine 0.83 Estimated GFR Greater than 89 POC Glucose 81 Random Glucose 80 Calcium 7.9 L Total Bilirubin 1.1 H AST 31 ALT 34 Alkaline Phosphatase 111 Total Protein 6.1 L D Albumin 2.4 L 09/04/18 09/04/18 04:16 11:12 WBC RBC Hgb Hct MCV MCH MCHC RDW Plt Count MPV Neut % (Auto) Lymph % (Auto) [place] % (Auto) Eos % (Auto) Baso % (Auto) Neut # (Auto) Lymph # (Auto) [place] # (Auto) Eos # (Auto) Baso # (Auto) WBC Differential Differential Comment APTT 61.6 H Sodium Potassium Chloride Carbon Dioxide Anion Gap BUN Creatinine Estimated GFR POC Glucose 128 H Random Glucose Calcium Total Bilirubin AST ALT Alkaline Phosphatase Total Protein Albumin Medications: Active Medications Generic Name Dose Route Start Last Admin Trade Name Freq PRN Reason Stop Dose Admin Acetaminophen 650 mg 08/29/18 00:55 09/01/18 20:28 Tylenol PO 650 mg Q6H PRN Administration PAIN 1-10 AND/OR FEVER >101F Aspirin 81 mg 08/29/18 09:00 09/04/18 08:49 Ecotrin PO 81 mg DAILY TONY Administration Carvedilol 3.125 mg 08/30/18 21:00 09/04/18 08:49 Coreg PO 3.125 mg BID TONY Administration Dextrose 50 ml 08/29/18 01:44 08/29/18 17:57 D50w Vial IV.PUSH 50 ml UNSCH PRN Administration PER HYPOGLYCEMIA PROTOCOL Famotidine 20 mg 08/29/18 09:00 09/04/18 08:50 Pepcid Pf Inj IV.PUSH 20 mg Q12HR TONY Administration Ferrous Sulfate 325 mg 08/30/18 12:00 09/04/18 12:33 Ferosul PO 325 mg BID@1200,1700 TONY Administration Folic Acid 1 mg 08/29/18 09:00 09/04/18 08:49 Folic Acid PO 1 mg DAILY TONY Administration Furosemide 40 mg 09/03/18 09:00 09/04/18 08:49 Lasix PO 40 mg DAILY TONY Administration Argatroban 250 mg/ Sodium 250 mls @ 0 mls/hr 08/29/18 02:30 09/04/18 08:54 Chloride IV.CONT 2 mcg/kg/min TITRATE PRN 8.82 mls/hr Per Protocol Administration Protocol Per Protocol Insulin Aspart 0 unit 09/02/18 12:00 09/04/18 11:48 Novolog Insulin Correctional Sugar Inj SQ Not Given ACHS [facility] Protocol Lisinopril 2.5 mg 09/04/18 09:00 09/04/18 08:49 Prinivil PO 2.5 mg DAILY TONY Administration Methotrexate 15 mg 08/31/18 09:00 08/31/18 09:16 Rheumatrex PO 15 mg Fr TONY Administration Senna/Docusate Sodium 1 tab 08/29/18 09:00 09/04/18 08:50 [place]-Colace PO Not Given BID TONY Sodium Chloride 2 ml 08/29/18 09:00 09/04/18 08:50 Ns Flush IV.FLUSH 2 ml BID TONY Administration Vitamin D 1,000 unit 08/29/18 09:00 09/04/18 08:49 Vitamin D3 PO 1,000 unit DAILY TONY Administration Objective Remarks: GENERAL: Elderly male patient, no acute distress. SKIN: Warm and dry. Steri-Strips to left chest wall, dry/intact. HEAD: Normocephalic. EYES: No scleral icterus. No injection or drainage. NECK: Supple, trachea midline. CARDIOVASCULAR: Distant heart sounds. RESPIRATORY: Anterior breath sounds clear equal bilaterally. Nonlabored at rest. GASTROINTESTINAL: Abdomen soft, non-tender, nondistended. EXTREMITIES: No cyanosis, or edema. MUSCULOSKELETAL: Adequate muscle tone. NEUROLOGICAL: No obvious focal deficit. Sleeping, awakens easily to voice. Assessment/Plan - Plan 77-year-old male with history of heparin-induced thrombocytopenia diagnosed at [facility] admitted with shortness of breath known to have severe aortic stenosis. He is being evaluated for TAVR procedure and this is tentatively planned for 09/05. 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 1. Continue argatroban drip. Monitor for bleeding. Continue to monitor APTT. 2. Pending TAVR procedure tomorrow. 3. Repeat CBC in the a.m. - Attending Statement Pt seen in room 460. Appears much improved in mentation and general condition. Sitting out of bed in chair, with at his side. No bleeding or bruising. Urine clear. Labs reviewed and care d/w Mrs. Hooper and with RN. TAVR tomorrow. Stop argatroban prior to procedure per Dr. Sargent. Will f/u after procedure.
[2018-09-04] MEDS ORDERED: Chlorhexidine Gluconate 2% 1 Pack (2 Cloths) TOPICAL SCH (17:30)
[2018-09-04] MEDS ORDERED: Aspirin 325 MG Tablet PO SCH (17:30)
[2018-09-04] MEDS ORDERED: Mupirocin 2% Nasal Oint Topical Syringe EACH NARE SCH (17:30)
[2018-09-04] MEDS: Sod Chloride 0.9% Inj 1,000 ML IV.CONT SCH (17:57)
[2018-09-04] MEDS ORDERED: ceFAZolin 2 GM Premix Inj 2 GM/50 ML PIGGYBACK IV.SIG SCH (18:00)
[2018-09-05] MEDS: Sod Chloride 0.9% Inj 1,000 ML IV.CONT SCH ×3 (02:00→17:23)
[2018-09-05] MEDS: Argatroban Inj 250 MG in Sodium Chlor 0.9% Inj 247.5 ML IV.CONT PRN (03:17)
[2018-09-05] MEDS ORDERED: Chlorhexidine Gluconate 2% 1 Pack (2 Cloths) TOPICAL ONE (05:45)
[2018-09-05] MEDS ORDERED: Sodium Chlor 0.9% Inj 500 ML IV.CONT ONE (05:45)
[2018-09-05] MEDS: Insulin NovoLOG Aspart Correctional Sugar Inj SQ SCH ×3 (08:20→17:22)
[2018-09-05] MEDS: Folic Acid 1 MG Tablet PO SCH (08:49)
[2018-09-05] MEDS: Senna/Docusate Sodium 8.6/50 MG Tablet PO SCH (08:50)
[2018-09-05] MEDS: Famotidine PF Inj 20 MG/2 ML Vial IV.PUSH SCH ×2 (08:50→22:02)
[2018-09-05] MEDS: Furosemide 40 MG Tablet PO SCH (08:56)
[2018-09-05] MEDS: Lisinopril 5 MG Tablet PO SCH (08:57)
--- NOTE | 2018-09-05 10:01 | P.PNIM ---
Subjective Interval history: Pt has NO new clinical complaints. Pt denies chest pain or SOB. Physical Exam Vital signs: Last Vital Signs Temp 97.7 F 09/05/18 08:00 Pulse 88 09/05/18 08:00 Resp 12 09/05/18 08:00 BP 114/75 09/05/18 08:00 Pulse Ox 93 L 09/05/18 08:00 Narrative: GENERAL: This is a well-nourished, well-developed patient, in no apparent distress. CARDIOVASCULAR: irregular, [place] RESPIRATORY: Clear to auscultation. Breath sounds equal bilaterally. No wheezes , rales, or rhonchi. GASTROINTESTINAL: Abdomen soft, non-tender, nondistended. Normal active bowel sounds MUSCULOSKELETAL: Extremities without clubbing, cyanosis, or edema. NEURO: Alert & Oriented x4 to person, place, time, situation. Moves all ext x4 Results Labs CBC & Chem 7: 09/04/18 04:16 09/04/18 04:16 Assessment and Plan Plan 1. Severe AVS 2. Acute Systolic CHF NICM 3. atrial fibrillation 4. 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 Dysphagia 7.general Weakness 8.DM 9. hematuria. - PT - Speech eval. Mod Barium swallow 08/31 - tolerating PO diet - per nursing difficulties with sundowning - SSI - Case d/w Cardiology, Dr. Sargent (09/03). - entresto stopped 09/03 & started lisiopril 2.5mg daily - hypotension resolved - coreg, asa, lasix - argatroban to be stopped prior to surgery - CT brain (08/31) 1. No acute hemorrhage, mass or evidence of acute infarction. 2. Atrophy and chronic small vessel ischemic changes. - anticipate discharge to [place] once stable after surgery - TAVR today with Dr. Sargent - supportive care 2) DM2, stable - SSI
[2018-09-05] MEDS ORDERED: Heparin 10,000 UNITS/10 ML Vial (for IV use) ONE (10:10)
[2018-09-05] MEDS ORDERED: Protamine Sulfate Inj 50 MG/5 ML Vial ONE (10:10)
--- NOTE | 2018-09-05 10:43 | P.PNCA ---
Subjective Interval history: No complaints Medications and Allergies Active Medications: Active Medications Acetaminophen (Tylenol) 650 mg PO Q6H PRN PRN Reason: PAIN 1-10 AND/OR FEVER >101F Last Admin: 09/01/18 20:28 Dose: 650 mg Al Hydroxide/Mg Hydroxide (Milk Of Miranda Jj) 30 ml PO Q12H PRN PRN Reason: Mild Constipation Albuterol (Duoneb Neb (Prn)) 1 ampul NEB Q2HR NEB PRN PRN Reason: WHEEZING Aspirin (Aspirin) 325 mg PO [employer] [facility] Stop: 09/07/18 17:20 Bisacodyl (Dulcolax Supp) 10 mg RECTAL DAILY PRN PRN Reason: SEVERE CONSITIPATION Carvedilol (Coreg) 3.125 mg PO BID [facility] Last Admin: 09/05/18 08:57 Dose: 3.125 mg Chlorhexidine Gluconate (Chlorhexidine 2% Cloth) 3 pack TOPICAL [employer]IC[employer] [facility] Stop: 09/07/18 17:20 Dextrose (D50w Vial) 50 ml IV.PUSH UNSCH PRN PRN Reason: PER HYPOGLYCEMIA PROTOCOL Last Admin: 08/29/18 17:57 Dose: 50 ml Famotidine (Pepcid Pf Inj) 20 mg IV.PUSH Q12HR [facility] Last Admin: 09/05/18 08:50 Dose: 20 mg Ferrous Sulfate (Ferosul) 325 mg PO BID@1200,1700 [facility] Last Admin: 09/04/18 17:11 Dose: 325 mg Folic Acid (Folic Acid) 1 mg PO DAILY [facility] Last Admin: 09/05/18 08:49 Dose: 1 mg Furosemide (Lasix) 40 mg PO DAILY [facility] Last Admin: 09/05/18 08:56 Dose: 40 mg Glucagon (Glucagon Inj) 1 mg OTHER PRN PRN PRN Reason: for Hypoglycemia Protocol Argatroban 250 mg/ Sodium (Chloride) 250 mls @ 0 mls/hr IV.CONT TITRATE PRN; Protocol PRN Reason: Per Protocol Last Admin: 09/05/18 03:17 Dose: 2 mcg/kg/min, 8.82 mls/hr Cefazolin Sodium/Dextrose (Ancef 2 Gm Premix Inj) 2 gm in 50 mls @ 100 mls/hr IV.SIG ONCE [facility] Stop: 09/07/18 17:20 Sodium Chloride (Ns Inj) 1,000 mls @ 125 mls/hr IV.CONT .Q8H [facility] Last Admin: 09/05/18 08:57 Dose: 125 mls/hr Lactated Ringer's (Lr 1000 Ml Inj) 1,000 mls @ 30 mls/hr IV.CONT .Q24H ONE Stop: 09/06/18 05:44 Last Admin: 09/05/18 08:58 Dose: Not Given Sodium Chloride (Ns Inj) 500 mls @ 30 mls/hr IV.CONT .[id number] ONE Stop: 09/05/18 22:24 Last Admin: 09/05/18 08:58 Dose: Not Given Insulin Aspart (Novolog Insulin Correctional Sugar Inj) 0 unit SQ ACHS [facility]; Protocol Last Admin: 09/05/18 08:20 Dose: Not Given Lactulose (Lactulose Liq) 30 ml PO DAILY PRN PRN Reason: SEVERE CONSITIPATION Lisinopril (Prinivil) 2.5 mg PO DAILY [facility] Last Admin: 09/05/18 08:57 Dose: 2.5 mg Methotrexate (Rheumatrex) 15 mg PO Fr [facility] Last Admin: 08/31/18 09:16 Dose: 15 mg Mupirocin (Bactroban 2% Nasal Oint) 1 applicatio EACH NARE [employer]IC[employer] [facility] Stop: 09/07/18 17:20 Ondansetron HCl (Zofran Inj) 4 mg IV.PUSH Q6H PRN PRN Reason: NAUSEA OR VOMITING Povidone Iodine (Betadine 5% Antisepsis Kit) 1 applicatio TOPICAL [employer]IC[employer] [facility] Stop: 09/07/18 17:20 Senna/Docusate Sodium ([place]-Colace) 1 tab PO BID [facility] Last Admin: 09/05/18 08:50 Dose: Not Given Sennosides (Senokot) 17.2 mg PO Q12H PRN PRN Reason: Moderate Constipation Sodium Chloride (Ns Flush) 2 ml IV.FLUSH BID [facility] Last Admin: 09/05/18 08:50 Dose: 2 ml Sodium Chloride (Ns Flush) 2 ml IV.FLUSH PRN PRN PRN Reason: FLUSH AFTER USING IV ACCESS Vitamin D (Vitamin D3) 1,000 unit PO DAILY [facility] Last Admin: 09/05/18 08:50 Dose: 1,000 unit Allergies Allergy/AdvReac Type Severity Reaction Status Date / Time gemfibrozil Allergy Redness of Verified 08/29/18 00:15 Skin Home Medications Medication Instructions Recorded Confirmed Type aspirin 81 mg PO DAILY 08/29/18 08/29/18 History cholecalciferol (vitamin D3) 1,000 unit PO DAILY 08/29/18 08/29/18 History [Vitamin D3] diltiazem HCl 120 mg PO DAILY 08/29/18 08/29/18 History fenofibrate PO DAILY 08/29/18 History folic acid 1 mg PO DAILY 08/29/18 08/29/18 History furosemide 20 mg PO DAILY 08/29/18 08/29/18 History lisinopril 20 mg PO DAILY 08/29/18 08/29/18 History metformin 500 mg PO QPM 08/29/18 08/29/18 History methotrexate sodium 15 mg PO FR 08/29/18 08/29/18 History umeclidinium-vilanterol [Anoro 1 inh INHALATION Q24H 08/29/18 08/29/18 History Ellipta] warfarin 2.5 mg PO DAILY 08/29/18 08/29/18 History Physical Exam Vital signs: Vital Signs 09/04/18 11:00 09/04/18 11:47 09/04/18 12:00 Temperature 97.9 F Pulse Rate 84 81 79 Respiratory Rate 18 Blood Pressure 115/72 Pulse Oximetry 96 09/04/18 13:00 09/04/18 14:00 09/04/18 15:00 Temperature Pulse Rate 82 80 79 Respiratory Rate Blood Pressure Pulse Oximetry 09/04/18 16:00 09/04/18 17:00 09/04/18 18:00 Temperature 97.5 F L Pulse Rate 80 79 79 Respiratory Rate 18 Blood Pressure 122/77 Pulse Oximetry 97 09/04/18 19:00 09/04/18 20:00 09/04/18 22:00 Temperature 96.7 F L Pulse Rate 79 79 82 Respiratory Rate 16 Blood Pressure 126/85 Pulse Oximetry 97 09/04/18 23:00 09/05/18 00:00 09/05/18 01:00 Temperature 97.5 F L Pulse Rate 82 84 80 Respiratory Rate 16 Blood Pressure 133/81 Pulse Oximetry 99 09/05/18 02:00 09/05/18 03:00 09/05/18 04:00 Temperature 97.6 F Pulse Rate 80 80 79 Respiratory Rate 16 Blood Pressure 129/75 Pulse Oximetry 95 09/05/18 05:00 09/05/18 07:00 09/05/18 08:00 Temperature 97.7 F Pulse Rate 82 87 88 Respiratory Rate 12 Blood Pressure 114/75 Pulse Oximetry 93 L Intake & Output 09/04/18 09/05/18 09/05/18 18:59 06:59 18:59 Intake Total 650 / 650 1730 / 1730 900 / 900 Balance 650 / 650 1730 / 1730 900 / 900 Weight 72.5 kg Intake: IV 1250 / 1250 900 / 900 Novastan Inj 250 MG In NS Inj 250 / 250 247.5 ML @ Per Protocol IV.CONT TITRATE PRN Rx#:[id number] NS Inj 1,000 ML @ 125 mls/hr IV 1000 / 1000 900 / 900 .CONT .Q8H TONY Rx#:[id number] Oral 650 / 650 480 / 480 Other: # Voids 3 # Urine Diapers 3 Date of Last Bowel Movement 09/04/18 08/26/18 09/04/18 # Bowel Movements 1 2 - Constitutional no acute distress - Routine HEENT Exam Eye: Present: EOMI, PERRL ENT: Present: mucous membranes moist - Routine Neck Exam Absent: JVD - Routine Respiratory Exam Present: CTA bilaterally - Routine Cardiovascular Exam Present: RRR, murmur - Routine Abdominal Exam Present: soft, normoactive bowel sounds - Routine Extremities Exam Absent: edema - Routine Neurological Exam Present: oriented X3, CN II-XII intact. Absent: sensory deficit, motor deficit - Urinary Catheter Management Indwelling Urethral Catheter Cath placed during this visit: no Condom Cath placed during this visit: no Results 09/04/18 04:16 09/04/18 04:16 Cardiac Enzymes 09/04/18 Range/Units 04:16 AST 31 (15-37) U/L Coagulation 09/04/18 09/05/18 09/05/18 Range/Units 04:16 03:15 08:15 APTT 61.6 H 85.7 H D 54.7 H D (23.4-31.7) sec CBC 09/04/18 Range/Units 04:16 WBC 5.6 (4.0-11.0) th/mm3 RBC 3.97 L (4.50-5.90) mil/mm3 Hgb 13.0 (13.0-17.0) gm/dL Hct 39.5 (39.0-51.0) % Plt Count 390 (150-450) th/mm3 Neut # (Auto) 3.6 (1.8-7.7) th/mm3 Lymph # (Auto) 1.2 (1.0-4.8) th/mm3 [place] # (Auto) 0.6 (0.0-0.9) th/mm3 Eos # (Auto) 0.1 (0.0-0.4) th/mm3 Baso # (Auto) 0.0 (0.0-0.2) th/mm3 Comprehensive Metabolic Panel 09/04/18 Range/Units 04:16 Sodium 141 (136-145) meq/L Potassium 3.6 (3.5-5.1) meq/L Chloride 108 H (98-107) meq/L Carbon Dioxide 26.2 (21.0-32.0) meq/L BUN 12 (7-18) mg/dL Creatinine 0.83 (0.60-1.30) mg/dL Calcium 7.9 L (8.5-10.1) mg/dL AST 31 (15-37) U/L ALT 34 (12-78) U/L Alkaline Phosphatase 111 (45-117) U/L Total Protein 6.1 L D (6.4-8.2) g/dL Albumin 2.4 L (3.4-5.0) g/dL Intake and Output 09/04/18 09/05/18 09/05/18 22:59 06:59 14:59 Intake Total 650 / 650 1730 / 1730 900 / 900 Balance 650 / 650 1730 / 1730 900 / 900 Intake: IV 1250 / 1250 900 / 900 Novastan Inj 250 MG In NS Inj 250 / 250 247.5 ML @ Per Protocol IV.CONT TITRATE PRN Rx#:[id number] NS Inj 1,000 ML @ 125 mls/hr IV 1000 / 1000 900 / 900 .CONT .Q8H TONY Rx#:[id number] Oral 650 / 650 480 / 480 Other: # Voids 3 # Urine Diapers 3 Date of Last Bowel Movement 09/04/18 08/26/18 09/04/18 # Bowel Movements 1 2 Weight 72.5 kg Assessment and Plan - Plan Severe aortic valve stenosis Transcatheter aortic valve replacement today Acute systolic congestive heart failure Severely reduced left ventricular systolic function, but clinically improving. continue guideline directed medical therapy. Atrial fibrillation Patient has tachycardia bradycardia syndrome. s/p BiVICD. Tolerating beta- meg. Cardiomyopathy, nonischemic Cardiac catheterization showed only mild nonobstructive coronary artery disease. Patient does have moderate mitral regurgitation, but there is significant afterload with his aortic valve stenosis which will hopefully improve after valve replacement. Patient already has biventricular implantable cardioverter defibrillator in place. Pulmonary embolism Patient will need at least 3-6 months of anticoagulation with Coumadin. I suspect patient will likely be on lifelong anticoagulation secondary to atrial fibrillation and increased CHADS-VASc score. Continue intravenous anticoagulation Heparin-induced thrombocytopenia Patient is on Argatroban drip. Patient will need transition to Coumadin following transcatheter aortic valve replacement. Preoperative assessment: STS score 9% [place] [employer] functional class IV symptoms Body mass index 22.9 4/4 frailty score Electrocardiogram shows sinus rhythm with intermittent ventricular pacing and premature ventricular complexes Premature delete word pulmonary function test FEV1 1.55 moderately reduced function Transthoracic echocardiogram from August 29, 2018 shows peak chest velocity 2. 6 2 m/s, mean gradient 15.2 mmHg, aortic valve area 0.59 cm, ejection fraction 20-25%, dimensionless index 0.18, moderate mitral regurgitation, moderate tricuspid regurgitation Cardiac catheterization August 22, 2018 shows mild to moderate nonobstructive coronary disease Computed tomographic analysis from August 22, 2018 shows short annulus diameter 23.5 mm, long annulus diameter 29.8 mm, primary 83.9 mm, sinus of Valsalva diameter 33.1 mm, sinotubular junction diameter 27.4 mm, left coronary height 16.6 mm, right coronary height 19.9 mm, ankle left anterior oblique 6 and caudal 7 degrees, minimal luminal diameter on the right 5.3 mm and on the left 4.8 mm We will plan for transcatheter aortic valve replacement using Medtronic 34 mm Evolut R bioprosthetic aortic valve.
[2018-09-05] MEDS ORDERED: ceFAZolin 1 GM Premix Inj 2 GM/100 ML PIGGYBACK IV.SIG ONE (11:15)
--- NOTE | 2018-09-05 12:31 | P.OP ---
Date of procedure: 09/05/18 Anesthesia: GETA Surgeon: Phani Zapata MD Operation and Findings: PREOPERATIVE DIAGNOSIS: 1. Severe Symptomatic Aortic stenosis. 2. CHF 3. Mild aortic Insufficiency 4. 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 Transcatheter Aortic Valve Replacement (TAVR) with a Medtronic 34 mm Evolut R tissue Valve. 2. Aortogram. 3. Percutaneous Bilateral Common Femoral Artery Access 4. Perclose (x2) closure of right Common Femoral artery. 5. Vascade closure of left Common Femoral Artery and Vein. 6. Fluoroscopy SURGEON: Phani Zapata MD CO-SURGEON: Bernardo Sargent MD MOSS BLEACHER SURGEON: None FIELD ARTILLERY OFFICER: CAROL Castillo MD ANESTHESIA: GETA PROCEDURE: The risks, benefits, complications, treatment options, and expected outcomes were discussed with the patient. The possibilities of reaction to medication, pulmonary aspiration, perforation of viscus, bleeding, recurrent infection, the need for additional procedures, failure to diagnose a condition, and creating a complication requiring transfusion or operation were discussed with the patient. The patient concurred with the proposed plan, giving informed consent. The site of surgery properly noted/marked. The patient was taken to the hybrid operating room and the procedure verified as Transcatheter Aortic Valve Replacement. A Time Out was held and the above information confirmed. Standard monitoring lines and Hernandez catheter were placed. General anesthesia was induced. The patient was prepped and draped in a sterile fashion. Initially, the left femoral arterial access was acquired using a Seldinger percutaneous technique. The details of this procedure were dictated under separate note by cardiology. Once a pigtail was positioned in the aortic annulus and a temporary transvenous pacemaker wire was placed in the right ventricular apex and tested, the right femoral artery was accessed using a needle followed by a guidewire under fluoroscopic guidance. The patient was given a bolus of Argatroban in addition to the continued IV drip, and two Perclose devices deployed at a 45 degree angle for later closure. Serial dilators were used to dilate the right femoral artery to 16 Azeri caliber. The Medtronic sheath was then inserted into the external iliac artery up to the distal abdominal aorta. Arch aortography was performed to define the implant view. A 34 mm Medtronic Evolut R transcatheter aortic valve was then positioned in the annulus and deployed with the patient being rapidly paced. Following deployment, the valve apparatus was withdrawn and arch aortography and LU were performed to assess the valve. The valve had trace perivalvular leak. Gradients were then measured and the sheath was removed with securing the Perclose sutures for hemostasis. Protamine was administered. The left arterial access site was closed using the Vascade device. Sterile dressings were placed. At the end of the operation, all sponge, instruments, and needle counts were correct. The patient was transferred to the CVICU in stable condition. Findings: Trace PVL Implants: 34 Evolut R Medtronic Valve Complications: None Disposition: CVICU in stable condition
[2018-09-05] MEDS ORDERED: Benzocaine/Menthol 15 MG/3.6 MG SF Lozenge BUCCAL PRN (13:13)
[2018-09-05] MEDS ORDERED: hydrALAZINE HCl Inj 20 MG/ML Vial IV.PUSH PRN (13:13)
[2018-09-05] MEDS ORDERED: Atropine Inj 1 MG/ML Vial IV.PUSH PRN (13:13)
--- NOTE | 2018-09-05 13:20 | P.OP ---
- Preoperative Diagnosis (1) Severe aortic stenosis Date of procedure: 09/05/18 Procedure: Transcatheter aortic valve replacement Implants: 34 mm Medtronic Evolut R bioprosthetic aortic valve Surgeon: Bernardo Sargent MD Molder Sweep: Phani Zapata Operation and Findings: channeling machine operator: Bernardo Sargent MD Primary Surgeon: Phani Zapata MD Procedures performed: 1. Fluoroscopy with interpretation 2. Left heart catheterization 3. Ascending aortography 4. Temporary transvenous pacemaker placement 5. Transesophageal echocardiogram 6. Transcatheter aortic valve replacement with Medtronic Evolut R 34 mm bioprosthetic valve Methods: Risks, benefits, and alternatives were discussed with the patient. Patient understood and consented to the procedure. Patient was brought into the operating room and placed on the operating table. Bilateral groins and chest were prepped and draped. Under fluoroscopic guidance the left common femoral artery was cannulated and a 5 Polish 11 cm sheath was placed without difficulty. Left femoral vein was accessed and a 5 Polish 11 cm sheath was placed without difficulty. Right common femoral artery was cannulated under fluoroscopic and angiographic guidance through using a micropuncture sheath. Angiography confirmed appropriate placement. An 8 Polish sheath was placed without difficulty. 2 Perclose devices were deployed in a pre-close manner. The 14 sheath was then advanced up over the wire through the iliac system without difficulty into the descending abdominal aorta. Temporary transvenous pacemaker placement: A 5 Polish balloontipped temporary transvenous pacemaker was advanced under fluoroscopic guidance to the right internal jugular sheath to the right ventricular apex. Appropriate pacing and capture was confirmed and utilized during the procedure for rapid ventricular pacing. Transesophageal echocardiogram: Please see detailed separate report Ascending aortography: Ascending aortography was performed using an 5 Polish angled pigtail catheter advanced to the left common femoral arterial sheath to the level of the descending aorta and its the right coronary cusp. Ascending aortography was performed which showed 3 leaflets and parallax view. The ascending aorta was not significantly dilated. Left heart catheterization: A 5 Polish AL-1 catheter was advanced through the right common femoral sheath to the level of the descending aorta a 0.035 inch Amplatz straight tip Super Stiff wire was then advanced across the aortic valve with some difficulty. The AL-1 catheter was advanced into the left ventricle. A 260 cm 0.035 inch standard J-wire was then advanced to the left ventricular apex and the AL-1 catheter removed. A 5 Polish angled pigtail catheter was then advanced over the J-wire into the left ventricular apex and the J-wire removed. A 0.035 inch 260 cm Medtronic Confida wire was then advanced to the left ventricular apex through the pigtail catheter, and the pigtail catheter removed. Transcatheter aortic valve replacement: A 34 mm Medtronic Evolut R valve was advanced through the right common femoral sheath to the level of the descending aorta. The device was then advanced up and over the arch to the level of the ascending aorta and across the aortic valve. Appropriate positioning was confirmed with a sending aortography and fluoroscopy. Under ventricular pacing at rate of 120 bpm, the transcatheter aortic valve was slowly deployed. Immediate post deployment transesophageal echocardiogram revealed appropriate positioning. There was no perivalvular leak or pericardial effusion. Patient tolerated the procedure with good hemodynamic stability. The delivery sheath was then removed. The right common femoral arterial sheath was removed and 2 Perclose devices deployed with good hemostasis. The left common femoral artery and venous sheaths were also removed and 2 Vascade closure devices were deployed with good hemostasis. Post valve deployment intraoperative transesophageal echocardiogram findings: 1. Post aortic valve area was 1.85 cm 2. Post implant mean aortic valve gradient was 6 mmHg 3. Post implant peak velocity was 1.25 m/seconds 4. Aortic valve insufficiency showed trace perivalvular leak with significant decrease in mitral regurgitation Conclusions: 1. Severe sun'aq aortic valve stenosis 2. Successful transcatheter aortic valve replacement with a 34 mm Medtronic Evolut R bioprosthetic valve Plan: We will monitor the patient closely for any immediate postprocedural complications. We will consult electrophysiology for evaluation of postprocedure heart rhythm. We will obtain a limited transthoracic echocardiogram. We will initiate antiplatelet therapy with Plavix. We will discontinue aspirin. We will initiate Coumadin. Will follow INR. Once INR is therapeutic, Argatroban drip will be discontinued and plavix can be converted to aspirin 81 mg daily. Patient be transferred to the cardiovascular intensive care unit for further monitoring
[2018-09-05] MEDS: Ferrous Sulfate 325 MG Tablet PO SCH ×2 (13:23→17:20)
--- NOTE | 2018-09-05 13:52 | P.CONCC ---
History of Present Illness Service: Critical care Consult date: 09/05/18 Requesting Physician: Bernardo Sargent Reason for Consult: s/p AVR Primary Care Provider: [employer] Chief Complaint: Shortness of breath History of Present Illness: T PMFSH - History History Provided By: Patient, Significant Other - Medical History Medical History: Medical History (Last Reviewed 09/03/18 @ 08:38 by Abhilash Miranda, PT) A-fib Acute systolic (congestive) heart failure COPD (chronic obstructive pulmonary disease) Diabetes mellitus Heparin induced thrombocytopenia (HIT) Mild CAD Nephrolithiasis Normal coronary angiogram Psoriasis Pulmonary embolism Severe calcific aortic valve stenosis Urinary tract infection - Surgical History Surgical History: Surgical History (Last Reviewed 09/01/18 @ 08:36 by Page Means) H/O cystoscopy - Family History Family History: Family History (Last Updated 08/29/18 @ 05:02 by George Daly MD) Other Family history normal Medications and Allergies Active Medications: Active Medications Acetaminophen (Tylenol) 650 mg PO Q6H PRN PRN Reason: PAIN 1-10 AND/OR FEVER >101F Last Admin: 09/01/18 20:28 Dose: 650 mg Al Hydroxide/Mg Hydroxide (Milk Of Miranda Jj) 30 ml PO Q12H PRN PRN Reason: Mild Constipation Albuterol (Duoneb Neb (Prn)) 1 ampul NEB Q2HR NEB PRN PRN Reason: WHEEZING Aspirin (Aspirin) 325 mg PO P[facility]TER BAGGAGE [facility] Stop: 09/07/18 17:20 Atropine Sulfate (Atropine Inj) 0.5 mg IV.PUSH UNSCH PRN PRN Reason: VAGAL REPONSE Stop: 09/06/18 13:12 Benzocaine/Menthol (Cepacol Max Strength) 1 lozenge BUCCAL Q3H PRN PRN Reason: SORE THROAT Stop: 09/06/18 13:12 Bisacodyl (Dulcolax Supp) 10 mg RECTAL DAILY PRN PRN Reason: SEVERE CONSITIPATION Carvedilol (Coreg) 3.125 mg PO BID [facility] Last Admin: 09/05/18 08:57 Dose: 3.125 mg Chlorhexidine Gluconate (Chlorhexidine 2% Cloth) 3 pack TOPICAL [facility] Stop: 09/07/18 17:20 Clonidine HCl (Catapres) 0.2 mg PO Q6H PRN PRN Reason: SBP > 160 mmHg Clopidogrel Bisulfate (Plavix) 75 mg PO DAILY [facility] Clopidogrel Bisulfate (Plavix) 600 mg PO ONCE ONE Stop: 09/05/18 13:14 Dextrose (D50w Vial) 50 ml IV.PUSH UNSCH PRN PRN Reason: PER HYPOGLYCEMIA PROTOCOL Last Admin: 08/29/18 17:57 Dose: 50 ml Famotidine (Pepcid Pf Inj) 20 mg IV.PUSH Q12HR [facility] Last Admin: 09/05/18 08:50 Dose: 20 mg Ferrous Sulfate (Ferosul) 325 mg PO BID@1200,1700 [facility] Last Admin: 09/05/18 13:23 Dose: Not Given Folic Acid (Folic Acid) 1 mg PO DAILY [facility] Last Admin: 09/05/18 08:49 Dose: 1 mg Furosemide (Lasix) 40 mg PO DAILY [facility] Last Admin: 09/05/18 08:56 Dose: 40 mg Glucagon (Glucagon Inj) 1 mg OTHER PRN PRN PRN Reason: for Hypoglycemia Protocol Hydralazine HCl (Apresoline Inj) 10 mg IV.PUSH Q30M PRN PRN Reason: SBP > 160 mmHg Argatroban 250 mg/ Sodium (Chloride) 250 mls @ 0 mls/hr IV.CONT TITRATE PRN; Protocol PRN Reason: Per Protocol Last Admin: 09/05/18 03:17 Dose: 2 mcg/kg/min, 8.82 mls/hr Cefazolin Sodium/Dextrose (Ancef 2 Gm Premix Inj) 2 gm in 50 mls @ 100 mls/hr IV.SIG ONCE TONY Stop: 09/07/18 17:20 Last Infusion: 09/05/18 11:54 Dose: Infused Sodium Chloride (Ns Inj) 1,000 mls @ 125 mls/hr IV.CONT .Q8H [facility] Last Admin: 09/05/18 08:57 Dose: 125 mls/hr Lactated Ringer's (Lr 1000 Ml Inj) 1,000 mls @ 30 mls/hr IV.CONT .Q24H ONE Stop: 09/06/18 05:44 Last Admin: 09/05/18 08:58 Dose: Not Given Sodium Chloride (Ns Inj) 500 mls @ 30 mls/hr IV.CONT .[id number] ONE Stop: 09/05/18 22:24 Last Admin: 09/05/18 08:58 Dose: Not Given Insulin Aspart (Novolog Insulin Correctional Sugar Inj) 0 unit SQ ACHS [facility]; Protocol Last Admin: 09/05/18 13:23 Dose: Not Given Lactulose (Lactulose Liq) 30 ml PO DAILY PRN PRN Reason: SEVERE CONSITIPATION Lisinopril (Prinivil) 2.5 mg PO DAILY [facility] Last Admin: 09/05/18 08:57 Dose: 2.5 mg Methotrexate (Rheumatrex) 15 mg PO Fr [facility] Last Admin: 08/31/18 09:16 Dose: 15 mg Miscellaneous Information (Misc Information) 0 each OTHER STAT STA Stop: 09/05/18 13:14 Mupirocin (Bactroban 2% Nasal Oint) 1 applicatio EACH NARE [facility]AGE [facility] Stop: 09/07/18 17:20 Ondansetron HCl (Zofran Inj) 4 mg IV.PUSH Q6H PRN PRN Reason: NAUSEA OR VOMITING Ondansetron HCl (Zofran Inj) 4 mg IV.PUSH ONCE PRN PRN Reason: NAUSEA OR VOMITING Povidone Iodine (Betadine 5% Antisepsis Kit) 1 applicatio TOPICAL [facility] Stop: 09/07/18 17:20 Senna/Docusate Sodium (Georgiana-Colace) 1 tab PO BID [facility] Last Admin: 09/05/18 08:50 Dose: Not Given Sennosides (Senokot) 17.2 mg PO Q12H PRN PRN Reason: Moderate Constipation Sodium Chloride (Ns Flush) 2 ml IV.FLUSH BID [facility] Last Admin: 09/05/18 08:50 Dose: 2 ml Sodium Chloride (Ns Flush) 2 ml IV.FLUSH PRN PRN PRN Reason: FLUSH AFTER USING IV ACCESS Vitamin D (Vitamin D3) 1,000 unit PO DAILY [facility] Last Admin: 09/05/18 08:50 Dose: 1,000 unit Warfarin Sodium (Coumadin) 5 mg PO ONCE ONE Stop: 09/05/18 18:01 Allergies Allergy/AdvReac Type Severity Reaction Status Date / Time gemfibrozil Allergy Redness of Verified 08/29/18 00:15 Skin heparin AdvReac Severe Other Verified 09/05/18 11:25 Home Medications Medication Instructions Recorded Confirmed Type aspirin 81 mg PO DAILY 08/29/18 08/29/18 History cholecalciferol (vitamin D3) 1,000 unit PO DAILY 08/29/18 08/29/18 History [Vitamin D3] diltiazem HCl 120 mg PO DAILY 08/29/18 08/29/18 History fenofibrate PO DAILY 08/29/18 History folic acid 1 mg PO DAILY 08/29/18 08/29/18 History furosemide 20 mg PO DAILY 08/29/18 08/29/18 History lisinopril 20 mg PO DAILY 08/29/18 08/29/18 History metformin 500 mg PO QPM 08/29/18 08/29/18 History methotrexate sodium 15 mg PO FR 08/29/18 08/29/18 History umeclidinium-vilanterol [Anoro 1 inh INHALATION Q24H 08/29/18 08/29/18 History Ellipta] warfarin 2.5 mg PO DAILY 08/29/18 08/29/18 History Physical Exam Vital signs: Vital Signs 09/04/18 14:00 09/04/18 15:00 09/04/18 16:00 Temperature 97.5 F L Pulse Rate 80 79 80 Respiratory Rate 18 Blood Pressure 122/77 Pulse Oximetry 97 09/04/18 17:00 09/04/18 18:00 09/04/18 19:00 Temperature Pulse Rate 79 79 79 Respiratory Rate Blood Pressure Pulse Oximetry 09/04/18 20:00 09/04/18 22:00 09/04/18 23:00 Temperature 96.7 F L Pulse Rate 79 82 82 Respiratory Rate 16 Blood Pressure 126/85 Pulse Oximetry 97 09/05/18 00:00 09/05/18 01:00 09/05/18 02:00 Temperature 97.5 F L Pulse Rate 84 80 80 Respiratory Rate 16 Blood Pressure 133/81 Pulse Oximetry 99 09/05/18 03:00 09/05/18 04:00 09/05/18 05:00 Temperature 97.6 F Pulse Rate 80 79 82 Respiratory Rate 16 Blood Pressure 129/75 Pulse Oximetry 95 09/05/18 07:00 09/05/18 08:00 09/05/18 13:22 Temperature 97.7 F Pulse Rate 87 88 84 Respiratory Rate 12 Blood Pressure 114/75 Pulse Oximetry 93 L 09/05/18 13:25 Temperature 97.6 F Pulse Rate 79 Respiratory Rate 14 Blood Pressure 153/74 H Pulse Oximetry 97 Intake & Output 09/04/18 09/05/18 09/05/18 18:59 06:59 18:59 Intake Total 650 / 650 1730 / 1730 2450 / 2450 Output Total 200 / 200 Balance 650 / 650 1730 / 1730 2250 / 2250 Weight 72.5 kg Intake: IV 1250 / 1250 950 / 950 Novastan Inj 250 MG In NS Inj 250 / 250 247.5 ML @ Per Protocol IV.CONT TITRATE PRN Rx#:[id number] NS Inj 1,000 ML @ 125 mls/hr IV 1000 / 1000 900 / 900 .CONT .Q8H TONY Rx#:[id number] Ancef 2 GM Premix Inj 2 gm In 50 / 50 50 ml @ 100 mls/hr IV.SIG ONCE TONY Rx#:[id number] Oral 650 / 650 480 / 480 Anesthesia Amount 1500 / 1500 Output: Estimated Blood Loss 200 / 200 Other: # Voids 3 # Urine Diapers 3 Date of Last Bowel Movement 09/04/18 08/26/18 09/04/18 # Bowel Movements 1 2 - Urinary Catheter Management Indwelling Urethral Catheter Cath placed during this visit: no Condom Cath placed during this visit: no Assessment and Plan - Assessment and Plan Plan: Severe aortic stenosis -2D echo pending -Workup with further management per Dr. Arie Suresh fib -Rate controlled with diltiazem -Argatroban anticoagulation due to history of CARLEE Diabetes mellitus -Glucerna tube feeds -Insulin sliding scale CHF -Lasix -Lisinopril -Strict I's and O's Psoriasis -Methotrexate DVT GI prophylaxis -Teds SCDs -Argatroban -Pepcid Level 2
--- NOTE | 2018-09-05 14:04 | P.PNCC ---
Subjective Subjective Remarks/Hospital Course: HPI on admission: 77-year-old gentleman with a known history of systolic congestive heart failure presented to emergency room at [facility] August 06, 2018 with complaints of palpitation and shortness of breath. Upon arrival to emergency room there he was found to be in A. fib with RVR. His heart rate was in 130s, he was given 1 time dose of IV diltiazem with significant improvement in his overall heart rate. He was again found to be in the acute on chronic congestive heart failure. He was given a dose of IV Lasix with improvement of his breathing but continued to require some oxygen support and subsequently been admitted to the hospital for additional evaluation and management. He has a long-standing history of atrial fibrillation on Coumadin. His echocardiogram showed ejection fraction of 30-35% with severe aortic stenosis and moderate MR. His hospital course was complicated with acute kidney injury, bradycardia, cardiogenic shock, respiratory failure requiring intubation, and the shock liver. He had a angiogram of his coronaries on 08/13 that showed no significant coronary disease. Apparently the patient became severely bradycardic in the Visual Merchandising Manager received atropine, followed by temporary intravenous pacemaker placement. He has arrived in the ICU at [facility] agitated and hypoxemic requiring intubation. Later on he underwent BiVICD and successful weaning of the ventilation with extubation. He has been transferred to [facility] for possible TAVR evaluation by his grain trader Dr. Sargent. 09/05/18: Critical care reconsult after TAVR procedure: Patient underwent successful transcatheter aortic valve replacement with a 34 mm Medtronic Evolut R bioprosthetic valve replacement. Post valve deployment LU showed valve area was 1.85 cm. Post implant mean aortic valve gradient was 6 mmHg. Trace perivalvular leak with significant decrease in mitral regurgitation. Postprocedure I evaluated the patient in the ICU. He is slightly confused from anesthesia. However protecting airway moving all extremities no hematoma. Currently remains on argatroban for heparin-induced thrombocytopenia Objective Vital Signs / I&O: Vital Signs 09/04/18 14:00 09/04/18 15:00 09/04/18 16:00 Temperature 97.5 F L Pulse Rate 80 79 80 Respiratory Rate 18 Blood Pressure 122/77 Pulse Oximetry 97 09/04/18 17:00 09/04/18 18:00 09/04/18 19:00 Temperature Pulse Rate 79 79 79 Respiratory Rate Blood Pressure Pulse Oximetry 09/04/18 20:00 09/04/18 22:00 09/04/18 23:00 Temperature 96.7 F L Pulse Rate 79 82 82 Respiratory Rate 16 Blood Pressure 126/85 Pulse Oximetry 97 09/05/18 00:00 09/05/18 01:00 09/05/18 02:00 Temperature 97.5 F L Pulse Rate 84 80 80 Respiratory Rate 16 Blood Pressure 133/81 Pulse Oximetry 99 09/05/18 03:00 09/05/18 04:00 09/05/18 05:00 Temperature 97.6 F Pulse Rate 80 79 82 Respiratory Rate 16 Blood Pressure 129/75 Pulse Oximetry 95 09/05/18 07:00 09/05/18 08:00 09/05/18 13:22 Temperature 97.7 F Pulse Rate 87 88 84 Respiratory Rate 12 Blood Pressure 114/75 Pulse Oximetry 93 L 09/05/18 13:25 Temperature 97.6 F Pulse Rate 79 Respiratory Rate 14 Blood Pressure 153/74 H Pulse Oximetry 97 Intake & Output 09/04/18 09/05/18 09/05/18 18:59 06:59 18:59 Intake Total 650 / 650 1730 / 1730 2450 / 2450 Output Total 200 / 200 Balance 650 / 650 1730 / 1730 2250 / 2250 Weight 72.5 kg Intake: IV 1250 / 1250 950 / 950 Novastan Inj 250 MG In NS Inj 250 / 250 247.5 ML @ Per Protocol IV.CONT TITRATE PRN Rx#:[id number] NS Inj 1,000 ML @ 125 mls/hr IV 1000 / 1000 900 / 900 .CONT .Q8H TONY Rx#:[id number] Ancef 2 GM Premix Inj 2 gm In 50 / 50 50 ml @ 100 mls/hr IV.SIG ONCE TONY Rx#:[id number] Oral 650 / 650 480 / 480 Anesthesia Amount 1500 / 1500 Output: Estimated Blood Loss 200 / 200 Other: # Voids 3 # Urine Diapers 3 Date of Last Bowel Movement 09/04/18 08/26/18 09/04/18 # Bowel Movements 1 2 Result Diagrams: 09/04/18 04:16 09/04/18 04:16 Objective Remarks: - Constitutional Mildly confused mildly agitated elderly male currently under residual anesthesia effect - Routine HEENT Exam Head: normocephalic, atraumatic Eye: PERRL ENT: Mucous membranes moist - Routine Neck Exam Supple, full ROM. Right IJ introducer in place - Routine Respiratory Exam No accessory muscle use, rales, rhonchi - Routine Cardiovascular Exam Heart rate and rhythm irregularly irregular. No clear murmur - Routine Abdominal Exam Soft, normoactive bowel sounds. Absent: tenderness, distended - Routine Extremities Exam No cyanosis, clubbing, edema. Groin sites without hematoma. Bilateral pulses positive with Doppler - Routine Neurological Exam Patient is alert awake but confused. He is moving all extremities not following commands probably from residual anesthesia. No obvious focal deficits Assessment and Plan - Assessment and Plan Plan: Plan: Severe aortic stenosis Moderate mitral regurgitation -s/p TAVR with 34 mm Medtronic Evolut R bioprosthetic valve replacement -Significant improvement in mitral regurgitation after the aortic valve replacement, only trace perivalvular leak -Continue aspirin Plavix Acute on chronic systolic heart failure -Continue medical treatment with Lasix, Coreg, lisinopril -Aortic valve replacement should improve systolic heart failure Delirium -Likely from anesthesia continue to monitor -Avoid long-acting sedation A. fib -Rate controlled -Argatroban anticoagulation due to history of CARLEE Diabetes mellitus -Glucerna tube feeds -Insulin sliding scale Psoriasis -Methotrexate DVT GI prophylaxis -Teds SCDs -Argatroban -Pepcid
--- NOTE | 2018-09-05 14:18 | P.DIET ---
Nutritional Evaluation Type of nutrition evaluation: follow-up Nutrition consult regarding: Tube Feeding Screening comments: Transferred from [facility] on TF Subjective Oral Diet Tolerance Assessment Indicates: Swallowing problems (09/05 ST: MODERATE OROPHARYNGEAL PHASE DYSPHAGIA WITH OVERT S/S OF ASPIRATION) Objective - Diagnosis Aortic Stenosis - Objective % IBW: 97 (IBW = 166#) Body Weight Used for Calculations: Actual (73.5 kg) Energy Needs - Lower Range (kCal/kg): 28 Energy Needs - Upper Range (kCal/kg): 32 Lower Limit kCal/kg (kCals): 2,058 Upper Limit kCal/kg (kCals): 2,352 Lower Limit Protein Factor (Grams per Kg): 1.2 Upper Limit Protein Factor (Grams per Kg): 1.5 Lower Protein Needs (Protein): 88 Upper Protein Needs (Protein): 110 Dietitian Reviewed in Medical Record: Curent medications, Intake & Output, Labs , Medical history, Tube feeding Diet Order: NPO Speech Therapy Recommendations: Yes (Pureed solids and [place] Thickened Liquid) Objective Comments: POC Glucose 82, 69, 71 Meds include: Novolog SSI LBM 09/05/18 Assessment Assessment: Pt is continues at nutrition risk r/t need for TFing. NGT d/c'd 08/31/18 and diet advanced per [address]. Pt tolerating diet w/variable po intake 0-75% for meals. Noted pt is currently NPO and is s/p transcatheter aortic valve replacement today 09/05/18. Monitor NPO status and diet advancement. Plan to provide Glucerna Shake TID when diet is advanced. Labs reviewed. Wt changes noted. Dietitian following. Recommendations: 1. Monitor NPO status and diet advancement 2. Plan to provide Glucerna Shake TID when diet is advanced 3. Dietitian following Dietitian to Monitor: Lab values, Intake & Output, Weight change, Swallow recommendations, Medical course
[2018-09-05] MEDS ORDERED: Iohexol 350 MG/ML 100 ML Vial (for Cath Lab) IVCONTRAST ONE (15:00)
--- NOTE | 2018-09-05 16:00 | ECHRPT ---
Indication: CONCLUSIONS Trileaflet aortic valve Severe aortic valve stenosis Status post transcatheter valve replacement No residual aortic stenosis Trace aortic insufficiency. Moderately dilated left ventricle. The left ventricular systolic function is severely reduced with an estimated ejection fraction less than 20%. BP: / HR: Rhythm: Technical Quality: Medications Complications Proc. Components FINDINGS LEFT VENTRICLE Moderately dilated left ventricle. The left ventricular systolic function is severely reduced with an estimated ejection fraction less than 20%. MITRAL VALVE Moderate mitral valve regurgitation. AORTIC VALVE Trileaflet aortic valve Severe aortic valve stenosis Status post transcatheter valve replacement No residual aortic stenosis Trace aortic insufficiency Bernardo Sargent MD, FACC (Electronically Signed) Final Date:05 September 2018 15:59
[2018-09-05] MEDS ORDERED: fentaNYL Citrate Inj 100 MCG/2 ML Ampul ONE (16:40)
[2018-09-05] MEDS: Acetaminophen 325 MG Tablet PO PRN (17:20)
[2018-09-06] MEDS: Insulin NovoLOG Aspart Correctional Sugar Inj SQ SCH ×5 (02:01→21:25)
[2018-09-06] MEDS: Senna/Docusate Sodium 8.6/50 MG Tablet PO SCH ×3 (02:03→21:24)
[2018-09-06 04:55] LABS: Hematocrit 39.8 % (39.0-51.0); Hemoglobin 13.7 gm/dL (13.0-17.0); Mean Corpuscular HGB Conc 34.5 % (32.0-36.0); Mean Corpuscular Hemoglobin 33.7 pg (27.0-34.0); Mean Corpuscular Volume 97.5 fL (80.0-100.0); Mean Platelet Volume 7.6 fL (7.0-11.0); Platelet Count 285 th/mm3 (150-450); Red Blood Count 4.08 mil/mm3 (4.50-5.90); Red Cell Distribution Width 15.8 % (11.6-17.2); White Blood Count 9.2 th/mm3 (4.0-11.0)
[2018-09-06 05:25] LABS: Albumin 2.5 g/dL (3.4-5.0); Anion Gap 9 meq/L (5-15); Aspartate Aminotransferase 49 U/L (15-37); Blood Urea Nitrogen 8 mg/dL (7-18); Chloride 110 meq/L (98-107); Glomerular Filtration Rate 76 mL/min (>89); Glucose,Random 84 mg/dL (74-106); Potassium 3.6 meq/L (3.5-5.1); Sodium 142 meq/L (136-145)
[2018-09-06 05:26] LABS: Alanine Aminotransferase 33 U/L (12-78)
[2018-09-06 05:28] LABS: Alkaline Phosphatase 105 U/L (45-117); Total Protein 6.6 g/dL (6.4-8.2)
[2018-09-06] MEDS: Sod Chloride 0.9% Inj 1,000 ML IV.CONT SCH ×3 (06:48→16:52)
--- NOTE | 2018-09-06 08:16 | P.PNCA ---
Subjective Interval history: No events overnight. Doing well. Medications and Allergies Active Medications: Active Medications Acetaminophen (Tylenol) 650 mg PO Q6H PRN PRN Reason: PAIN 1-10 AND/OR FEVER >101F Last Admin: 09/05/18 17:20 Dose: 650 mg Al Hydroxide/Mg Hydroxide (Milk Of Magnkerry Liq) 30 ml PO Q12H PRN PRN Reason: Mild Constipation Albuterol (Duoneb Neb (Prn)) 1 ampul NEB Q2HR NEB PRN PRN Reason: WHEEZING Aspirin (Aspirin) 325 mg PO TERRITORY ACCOUNT EXECUTIVE [facility] Stop: 09/07/18 17:20 Atropine Sulfate (Atropine Inj) 0.5 mg IV.PUSH UNSCH PRN PRN Reason: VAGAL REPONSE Stop: 09/06/18 13:12 Benzocaine/Menthol (Cepacol Max Strength) 1 lozenge BUCCAL Q3H PRN PRN Reason: SORE THROAT Stop: 09/06/18 13:12 Bisacodyl (Dulcolax Supp) 10 mg RECTAL DAILY PRN PRN Reason: SEVERE CONSITIPATION Carvedilol (Coreg) 3.125 mg PO BID [facility] Last Admin: 09/06/18 02:01 Dose: Not Given Chlorhexidine Gluconate (Chlorhexidine 2% Cloth) 3 pack TOPICAL TERRITORY ACCOUNT EXECUTIVE [facility] Stop: 09/07/18 17:20 Clonidine HCl (Catapres) 0.2 mg PO Q6H PRN PRN Reason: SBP > 160 mmHg Clopidogrel Bisulfate (Plavix) 75 mg PO DAILY [facility] Dextrose (D50w Vial) 50 ml IV.PUSH UNSCH PRN PRN Reason: PER HYPOGLYCEMIA PROTOCOL Last Admin: 08/29/18 17:57 Dose: 50 ml Famotidine (Pepcid Pf Inj) 20 mg IV.PUSH Q12HR [facility] Last Admin: 09/05/18 22:02 Dose: 20 mg Ferrous Sulfate (Ferosul) 325 mg PO BID@1200,1700 [facility] Last Admin: 09/05/18 17:20 Dose: 325 mg Folic Acid (Folic Acid) 1 mg PO DAILY [facility] Last Admin: 09/05/18 08:49 Dose: 1 mg Furosemide (Lasix) 40 mg PO DAILY [facility] Last Admin: 09/05/18 08:56 Dose: 40 mg Glucagon (Glucagon Inj) 1 mg OTHER PRN PRN PRN Reason: for Hypoglycemia Protocol Hydralazine HCl (Apresoline Inj) 10 mg IV.PUSH Q30M PRN PRN Reason: SBP > 160 mmHg Argatroban 250 mg/ Sodium (Chloride) 250 mls @ 0 mls/hr IV.CONT TITRATE PRN; Protocol PRN Reason: Per Protocol Last Titration: 09/05/18 18:01 Dose: 1.5 mcg/kg/min, 6.61 mls/hr Cefazolin Sodium/Dextrose (Ancef 2 Gm Premix Inj) 2 gm in 50 mls @ 100 mls/hr IV.SIG ONCE [facility] Stop: 09/07/18 17:20 Last Infusion: 09/05/18 11:54 Dose: Infused Sodium Chloride (Ns Inj) 1,000 mls @ 125 mls/hr IV.CONT .Q8H [facility] Last Admin: 09/06/18 06:48 Dose: Not Given Insulin Aspart (Novolog Insulin Correctional Sugar Inj) 0 unit SQ ACHS [facility]; Protocol Last Admin: 09/06/18 02:01 Dose: Not Given Lactulose (Lactulose Liq) 30 ml PO DAILY PRN PRN Reason: SEVERE CONSITIPATION Lisinopril (Prinivil) 2.5 mg PO DAILY [facility] Last Admin: 09/05/18 08:57 Dose: 2.5 mg Methotrexate (Rheumatrex) 15 mg PO Fr [facility] Last Admin: 08/31/18 09:16 Dose: 15 mg Mupirocin (Bactroban 2% Nasal Oint) 1 applicatio EACH NARE TERRITORY ACCOUNT EXECUTIVE [facility] Stop: 09/07/18 17:20 Ondansetron HCl (Zofran Inj) 4 mg IV.PUSH Q6H PRN PRN Reason: NAUSEA OR VOMITING Ondansetron HCl (Zofran Inj) 4 mg IV.PUSH ONCE PRN PRN Reason: NAUSEA OR VOMITING Povidone Iodine (Betadine 5% Antisepsis Kit) 1 applicatio TOPICAL TERRITORY ACCOUNT EXECUTIVE [facility] Stop: 09/07/18 17:20 Senna/Docusate Sodium (Georgiana-Colace) 1 tab PO BID [facility] Last Admin: 09/06/18 02:03 Dose: Not Given Sennosides (Senokot) 17.2 mg PO Q12H PRN PRN Reason: Moderate Constipation Sodium Chloride (Ns Flush) 2 ml IV.FLUSH BID [facility] Last Admin: 09/05/18 22:02 Dose: 2 ml Sodium Chloride (Ns Flush) 2 ml IV.FLUSH PRN PRN PRN Reason: FLUSH AFTER USING IV ACCESS Vitamin D (Vitamin D3) 1,000 unit PO DAILY [facility] Last Admin: 09/05/18 08:50 Dose: 1,000 unit Allergies Allergy/AdvReac Type Severity Reaction Status Date / Time gemfibrozil Allergy Redness of Verified 08/29/18 00:15 Skin heparin AdvReac Severe Other Verified 09/05/18 11:25 Home Medications Medication Instructions Recorded Confirmed Type aspirin 81 mg PO DAILY 08/29/18 08/29/18 History cholecalciferol (vitamin D3) 1,000 unit PO DAILY 08/29/18 08/29/18 History [Vitamin D3] diltiazem HCl 120 mg PO DAILY 08/29/18 08/29/18 History fenofibrate PO DAILY 08/29/18 History folic acid 1 mg PO DAILY 08/29/18 08/29/18 History furosemide 20 mg PO DAILY 08/29/18 08/29/18 History lisinopril 20 mg PO DAILY 08/29/18 08/29/18 History metformin 500 mg PO QPM 08/29/18 08/29/18 History methotrexate sodium 15 mg PO FR 08/29/18 08/29/18 History umeclidinium-vilanterol [Anoro 1 inh INHALATION Q24H 08/29/18 08/29/18 History Ellipta] warfarin 2.5 mg PO DAILY 08/29/18 08/29/18 History Physical Exam Vital signs: Vital Signs 09/05/18 13:22 09/05/18 13:25 09/05/18 15:00 Temperature 97.6 F 97.6 F Pulse Rate 84 79 79 Respiratory Rate 14 15 Blood Pressure 153/74 H 127/74 Pulse Oximetry 97 93 L 09/05/18 15:56 09/05/18 17:58 09/05/18 20:00 Temperature 98.2 F Pulse Rate 82 Respiratory Rate 14 14 16 Blood Pressure 139/86 Pulse Oximetry 95 09/06/18 00:00 09/06/18 04:00 09/06/18 07:00 Temperature 98.4 F 98.1 F Pulse Rate 86 82 79 Respiratory Rate 16 16 12 Blood Pressure 152/78 H 139/78 127/79 Pulse Oximetry 96 94 L 94 L Intake & Output 09/05/18 09/06/18 09/06/18 18:59 06:59 18:59 Intake Total 2746 / 2746 0 / 0 Output Total 200 / 200 400 / 400 Balance 2546 / 2546 -400 / -400 Weight 74 kg Intake: IV 1246 / 1246 Novastan Inj 250 MG In NS Inj 46 / 46 247.5 ML @ Per Protocol IV.CONT TITRATE PRN Rx#:[id number] NS Inj 1,000 ML @ 125 mls/hr IV 1150 / 1150 .CONT .Q8H [facility] Rx#:[id number] Ancef 2 GM Premix Inj 2 gm In 50 / 50 50 ml @ 100 mls/hr IV.SIG ONCE [facility] Rx#:[id number] Oral 0 / 0 Anesthesia Amount 1500 / 1500 Output: Estimated Blood Loss 200 / 200 Urine Amount (Catheter) 400 / 400 Condom 400 / 400 Other: # Incontinent Voids 3 # Urine Diapers 3 Date of Last Bowel Movement 09/04/18 09/04/18 # Bowel Movements 0 - Constitutional no acute distress - Routine HEENT Exam Eye: Present: EOMI, PERRL ENT: Present: mucous membranes moist - Routine Neck Exam Absent: JVD - Routine Respiratory Exam Present: CTA bilaterally - Routine Cardiovascular Exam Present: RRR. Absent: murmur - Routine Abdominal Exam Present: soft, normoactive bowel sounds - Routine Extremities Exam Absent: edema - Routine Neurological Exam Present: CN II-XII intact. Absent: sensory deficit, motor deficit - Urinary Catheter Management Indwelling Urethral Catheter Cath placed during this visit: no Condom Cath placed during this visit: yes Reason for continuing: Not indwelling catheter Insertion date: 09/05/18 Insertion time: 22:00 Results 09/06/18 04:35 09/06/18 04:35 Cardiac Enzymes 09/06/18 Range/Units 04:35 AST 49 H (15-37) U/L Coagulation 09/05/18 09/05/18 09/06/18 Range/Units 03:15 08:15 04:35 APTT 85.7 H D 54.7 H D 60.8 H (23.4-31.7) sec CBC 09/06/18 Range/Units 04:35 WBC 9.2 (4.0-11.0) th/mm3 RBC 4.08 L (4.50-5.90) mil/mm3 Hgb 13.7 (13.0-17.0) gm/dL Hct 39.8 (39.0-51.0) % Plt Count 285 (150-450) th/mm3 Comprehensive Metabolic Panel 09/06/18 Range/Units 04:35 Sodium 142 (136-145) meq/L Potassium 3.6 (3.5-5.1) meq/L Chloride 110 H (98-107) meq/L Carbon Dioxide 23.0 (21.0-32.0) meq/L BUN 8 (7-18) mg/dL Creatinine 0.96 (0.60-1.30) mg/dL Calcium 8.0 L (8.5-10.1) mg/dL AST 49 H (15-37) U/L ALT 33 (12-78) U/L Alkaline Phosphatase 105 (45-117) U/L Total Protein 6.6 (6.4-8.2) g/dL Albumin 2.5 L (3.4-5.0) g/dL Intake and Output 09/05/18 09/06/18 09/06/18 22:59 06:59 14:59 Intake Total 296 / 296 0 / 0 Output Total 400 / 400 Balance 296 / 296 -400 / -400 Intake: IV 296 / 296 Novastan Inj 250 MG In NS Inj 46 / 46 247.5 ML @ Per Protocol IV.CONT TITRATE PRN Rx#:[id number] NS Inj 1,000 ML @ 125 mls/hr IV 250 / 250 .CONT .Q8H [facility] Rx#:[id number] Oral 0 / 0 Output: Urine Amount (Catheter) 400 / 400 Condom 400 / 400 Other: # Incontinent Voids 3 # Urine Diapers 3 Date of Last Bowel Movement 09/04/18 09/04/18 # Bowel Movements 0 Weight 74 kg Assessment and Plan - Plan Severe aortic valve stenosis Status post transcatheter valve replacement. Acute systolic congestive heart failure Severely reduced left ventricular systolic function. We will change angiotensin -converting enzyme inhibitor to Entresto, blood pressure is much improved. Continue beta-meg. Continue diuretic therapy. Atrial fibrillation Patient has tachycardia bradycardia syndrome. s/p BiVICD. Tolerating beta- meg. Cardiomyopathy, nonischemic Cardiac catheterization showed only mild nonobstructive coronary artery disease. Mitral regurgitation improved after trans-catheter to valve replacement. Follow-up limited transthoracic echocardiogram today. Continue guideline directed medical therapy. Pulmonary embolism Started on Coumadin. Follow INR daily. Currently on Plavix and Coumadin. When INR is therapeutic, we will discontinue Plavix and continue aspirin and Coumadin. At that time we would also discontinue her gastric band. Therapeutic INR is greater than 2.0. 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 Transition to Coumadin. Follow-up with hematology in the outpatient setting. Continue with physical rehabilitation. Consult proximal inpatient rehabilitation Case management assistance for disposition Possible transfer to inpatient rehab tomorrow if INR therapeutic.
[2018-09-06] MEDS: Folic Acid 1 MG Tablet PO SCH (09:08)
[2018-09-06] MEDS: Furosemide 40 MG Tablet PO SCH (09:08)
[2018-09-06] MEDS: Famotidine PF Inj 20 MG/2 ML Vial IV.PUSH SCH ×2 (09:09→21:24)
[2018-09-06 09:36] LABS: INR 3.2 Ratio; Prothrombin Time 32.7 sec (9.8-11.6)
--- NOTE | 2018-09-06 10:40 | P.PNIM ---
Subjective Interval history: Pt has NO new complaints. Pt denies chest pain or palpitations. Poor PO intake. Per nurse, pt ate 25% of his breakfast. Physical Exam Vital signs: Last Vital Signs Temp 98.1 F 09/06/18 07:00 Pulse 79 09/06/18 07:00 Resp 12 09/06/18 07:00 BP 127/79 09/06/18 07:00 Pulse Ox 96 09/06/18 08:00 Narrative: GENERAL: This is a well-nourished, well-developed patient, in no apparent distress. CARDIOVASCULAR: irregular, ROSAURA RESPIRATORY: Clear to auscultation. Breath sounds equal bilaterally. No wheezes , rales, or rhonchi. GASTROINTESTINAL: Abdomen soft, non-tender, nondistended. Normal active bowel sounds MUSCULOSKELETAL: Extremities without clubbing, cyanosis, or edema. NEURO: Alert & Oriented x4 to person, place, time, situation. Moves all ext x4 Results Labs CBC & Chem 7: 09/09/18 01:22 09/09/18 01:22 Assessment and Plan Plan 1. Severe AVS 2. Acute Systolic CHF NICM 3. atrial fibrillation 4. 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 Dysphagia 7.general Weakness 8.DM 9. hematuria. - PT - Speech eval. Mod Barium swallow 08/31 - tolerating PO diet - per nursing difficulties with sundowning - SSI - Case d/w Cardiology, Dr. Sargent (09/03). - entresto stopped 09/03 & started lisiopril 2.5mg daily - hypotension resolved - coreg, asa, lasix - argatroban stopped prior to surgery - CT brain (08/31) 1. No acute hemorrhage, mass or evidence of acute infarction. 2. Atrophy and chronic small vessel ischemic changes. - INR 3.2 (09/06) - Case d/w Hematology, Dr. oT (09/06) - stop argotroban - will obtain repeat INR 09/07, if INR is blow 3.0 on (09/07) then will start coumadin at 2.5mg daily - IVFs - repeat CXR in AM - encourage PO intake - anticipate discharge to [place] once stable after surgery - supportive care 2) DM2, stable - SSI
[2018-09-06] MEDS: Ferrous Sulfate 325 MG Tablet PO SCH ×2 (11:36→16:51)
--- NOTE | 2018-09-06 11:39 | ECHRPT ---
Indication: CONCLUSIONS Moderately dilated left ventricle. The left ventricular systolic function is severely reduced with an estimated ejection fraction in th e range of 20-25%. The left atrial size is mildly dilated. [id number] mitral valve regurgitation. Status post transcatheter aortic valve replacement No residual aortic stenosis Trace paravalvular leak BP: / HR: Rhythm: MEASUREMENTS (Male / Female) Normal Values Technical Quality: 2D ECHO LV Diastolic Diameter PLAX 6.1 cm 4.2 - 5.9 / 3.9 - 5.3 cm LV Systolic Diameter PLAX 5.1 cm IVS Diastolic Thickness 0.8 cm 0.6 - 1.0 / 0.6 - 0.9 cm LVPW Diastolic Thickness 0.9 cm 0.6 - 1.0 / 0.6 - 0.9 cm LV Relative Wall Thickness 0.3 RV Internal Dim ED PLAX 3.1 cm LVOT Diameter 1.9 cm LA Systolic Diameter LX 4.0 cm 3.0 - 4.0 / 2.7 - 3.8 cm LV Ejection Fraction MOD 4C 39.6 % LV Ejection Fraction 4C AL 41.1 % DOPPLER AV Peak Velocity 136.0 cm/s AV Peak Gradient 7.4 mmHg AV Mean Gradient 4.0 mmHg AV Velocity Time Integral 22.9 cm LVOT Peak Velocity 73.7 cm/s LVOT Peak Gradient 2.2 mmHg LVOT Velocity Time Integral 12.9 cm AV Area Cont Eq vti 1.6 cm AV Area Cont Eq pk 1.5 cm MR Peak Velocity 449.0 cm/s MR Peak Gradient 80.6 mmHg Mitral E Point Velocity 106.0 cm/s Mitral A Point Velocity 43.9 cm/s Mitral E to A Ratio 2.4 TR Peak Velocity 323.0 cm/s TR Peak Gradient 41.7 mmHg Right Atrial Pressure 10.0 mmHg Pulmonary Artery Systolic Pressu 51.7 mmHg Right Ventricular Systolic Press 51.7 mmHg FINDINGS LEFT VENTRICLE Moderately dilated left ventricle. The left ventricular systolic function is severely reduced with an estimated ejection fraction in th e range of 20-25%. LEFT ATRIUM The left atrial size is mildly dilated. MITRAL VALVE [id number] mitral valve regurgitation. AORTIC VALVE Status post transcatheter aortic valve replacement No residual aortic stenosis Trace paravalvular leak Bernardo Sargent MD, FACC (Electronically Signed) Final Date:06 September 2018 11:38
--- NOTE | 2018-09-06 15:04 | P.PNONC ---
Subjective Interval history: Patient sleeping in recliner on approach, awakens briefly and states he is tired. Objective Vital Signs/Intake & Output: Vital Signs 09/05/18 15:56 09/05/18 17:58 09/05/18 20:00 Temperature 98.2 F Pulse Rate 82 Respiratory Rate 14 14 16 Blood Pressure 139/86 Pulse Oximetry 95 09/06/18 00:00 09/06/18 04:00 09/06/18 07:00 Temperature 98.4 F 98.1 F Pulse Rate 86 82 79 Respiratory Rate 16 16 12 Blood Pressure 152/78 H 139/78 127/79 Pulse Oximetry 96 94 L 94 L 09/06/18 08:00 09/06/18 11:00 09/06/18 12:00 Temperature 97.4 F L Pulse Rate 80 Respiratory Rate 14 Blood Pressure 113/65 Pulse Oximetry 96 93 L 93 L Intake & Output 09/05/18 09/06/18 09/06/18 18:59 06:59 18:59 Intake Total 2746 / 2746 0 / 0 904 / 904 Output Total 200 / 200 400 / 400 Balance 2546 / 2546 -400 / -400 904 / 904 Weight 74 kg Intake: IV 1246 / 1246 904 / 904 Novastan Inj 250 MG In NS Inj 46 / 46 154 / 154 247.5 ML @ Per Protocol IV.CONT TITRATE PRN Rx#:[id number] NS Inj 1,000 ML @ 125 mls/hr IV 1150 / 1150 750 / 750 .CONT .Q8H [facility] Rx#:[id number] Ancef 2 GM Premix Inj 2 gm In 50 / 50 50 ml @ 100 mls/hr IV.SIG ONCE [facility] Rx#:[id number] Oral 0 / 0 Anesthesia Amount 1500 / 1500 Output: Estimated Blood Loss 200 / 200 Urine Amount (Catheter) 400 / 400 Condom 400 / 400 Other: # Incontinent Voids 3 # Urine Diapers 3 Date of Last Bowel Movement 09/04/18 09/04/18 09/04/18 # Bowel Movements 0 Result Diagrams: 09/06/18 04:35 09/06/18 04:35 Laboratory Results: Laboratory Results - last 24 hr 09/05/18 09/05/18 09/06/18 10:13 16:50 00:21 WBC RBC Hgb Hct MCV MCH MCHC RDW Plt Count MPV PT INR APTT Sodium Potassium Chloride Carbon Dioxide Anion Gap BUN Creatinine Estimated GFR POC Glucose 112 H 82 Random Glucose Calcium Total Bilirubin AST ALT Alkaline Phosphatase Total Protein Albumin MTS Gel Crossmatch See Detail 09/06/18 09/06/18 09/06/18 04:35 04:35 04:35 WBC 9.2 RBC 4.08 L Hgb 13.7 Hct 39.8 MCV 97.5 MCH 33.7 MCHC 34.5 RDW 15.8 Plt Count 285 MPV 7.6 PT INR APTT 60.8 H Sodium 142 Potassium 3.6 Chloride 110 H Carbon Dioxide 23.0 Anion Gap 9 BUN 8 Creatinine 0.96 Estimated GFR 76 L POC Glucose Random Glucose 84 Calcium 8.0 L Total Bilirubin 1.1 H AST 49 H ALT 33 Alkaline Phosphatase 105 Total Protein 6.6 Albumin 2.5 L MTS Gel Crossmatch 09/06/18 09/06/18 09/06/18 07:14 08:38 11:32 WBC RBC Hgb Hct MCV MCH MCHC RDW Plt Count MPV PT 32.7 H D INR 3.2 APTT Sodium Potassium Chloride Carbon Dioxide Anion Gap BUN Creatinine Estimated GFR POC Glucose 78 109 Random Glucose Calcium Total Bilirubin AST ALT Alkaline Phosphatase Total Protein Albumin MTS Gel Crossmatch Medications: Active Medications Generic Name Dose Route Start Last Admin Trade Name Freq PRN Reason Stop Dose Admin Acetaminophen 650 mg 08/29/18 00:55 09/05/18 17:20 Tylenol PO 650 mg Q6H PRN Administration PAIN 1-10 AND/OR FEVER >101F Carvedilol 3.125 mg 08/30/18 21:00 09/06/18 09:08 Coreg PO 3.125 mg BID [facility] Administration Clopidogrel Bisulfate 75 mg 09/06/18 09:00 09/06/18 09:08 Plavix PO 75 mg DAILY [facility] Administration Dextrose 50 ml 08/29/18 01:44 08/29/18 17:57 D50w Vial IV.PUSH 50 ml UNSCH PRN Administration PER HYPOGLYCEMIA PROTOCOL Famotidine 20 mg 08/29/18 09:00 09/06/18 09:09 Pepcid Pf Inj IV.PUSH 20 mg Q12HR [facility] Administration Ferrous Sulfate 325 mg 08/30/18 12:00 09/06/18 11:36 Ferosul PO 325 mg BID@1200,1700 [facility] Administration Folic Acid 1 mg 08/29/18 09:00 09/06/18 09:08 Folic Acid PO 1 mg DAILY [facility] Administration Furosemide 40 mg 09/03/18 09:00 09/06/18 09:08 Lasix PO 40 mg DAILY [facility] Administration Cefazolin Sodium/Dextrose 2 gm in 50 mls @ 100 mls/hr 09/04/18 18:00 11:54 Ancef 2 Gm Premix Inj IV.SIG 09/07/18 17:20 Infused ONCE [facility] Infusion Sodium Chloride 1,000 mls @ 125 mls/hr 09/04/18 17:30 09/06/18 14:39 Ns Inj IV.CONT 125 mls/hr .Q8H [facility] Infusion Insulin Aspart 0 unit 09/02/18 12:00 09/06/18 11:37 Novolog Insulin Correctional Sugar Inj SQ Not Given ACHS [facility] Protocol Methotrexate 15 mg 08/31/18 09:00 08/31/18 09:16 Rheumatrex PO 15 mg Fr [facility] Administration Sacubitril/Valsartan 1 tab 09/06/18 09:00 09/06/18 10:16 Entresto 24 Mg/26 Mg Tablet PO 1 tab BID [facility] Administration Senna/Docusate Sodium 1 tab 08/29/18 09:00 09/06/18 09:09 Georgiana-Colace PO Not Given BID [facility] Sodium Chloride 2 ml 08/29/18 09:00 09/06/18 09:09 Ns Flush IV.FLUSH 2 ml BID [facility] Administration Vitamin D 1,000 unit 08/29/18 09:00 09/06/18 09:08 Vitamin D3 PO 1,000 unit DAILY [facility] Administration Objective Remarks: GENERAL: Elderly male patient, no acute distress. SKIN: Warm and dry. Steri-Strips to left chest wall, dry/intact. Bandage to left neck base. HEAD: Normocephalic. EYES: No scleral icterus. No injection or drainage. NECK: Supple, trachea midline. CARDIOVASCULAR: +S1/S2 RESPIRATORY: Anterior breath sounds clear equal bilaterally. Nonlabored at rest. GASTROINTESTINAL: Abdomen soft, non-tender, nondistended. EXTREMITIES: No cyanosis, or edema. MUSCULOSKELETAL: Adequate muscle tone. NEUROLOGICAL: No obvious focal deficit. Sleeping, awakens briefly to voice. Assessment/Plan - Plan 77-year-old male with history of heparin-induced thrombocytopenia diagnosed at [facility] admitted with shortness of breath known to have severe aortic stenosis. He is being evaluated for TAVR procedure and this is tentatively planned for 09/05. 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 1. Argatroban drip was discontinued prior to TAVR. 2. S/P TAVR procedure yesterday. 3. INR 3.2 today, pt will restart coumadin when <3.0. 4. We will sign off from a hematology standpoint, kindly call if needed.
--- NOTE | 2018-09-06 15:45 | P.PNCV ---
- Note Subjective/Hospital Course: 77-year-old gentleman with a known history of systolic congestive heart failure presented to emergency room at [facility] August 06, 2018 with complaints of palpitation and shortness of breath. Upon arrival to emergency room there he was found to be in A. fib with RVR. His heart rate was in 130s, he was given 1 time dose of IV diltiazem with significant improvement in his overall heart rate. He was again found to be in the acute on chronic congestive heart failure. He was given a dose of IV Lasix with improvement of his breathing but continued to require some oxygen support and subsequently been admitted to the hospital for additional evaluation and management. He has a long-standing history of atrial fibrillation on Coumadin. His echocardiogram showed ejection fraction of 30-35% with severe aortic stenosis and moderate MR. His hospital course was complicated with acute kidney injury, bradycardia, cardiogenic shock, respiratory failure requiring intubation, and the shock liver. He had a angiogram of his coronaries on 08/13 that showed no significant coronary disease. Apparently the patient became severely bradycardic in the [employer] received atropine, followed by temporary intravenous pacemaker placement. He has arrived in the ICU at [facility] agitated and hypoxemic requiring intubation. Later on he underwent permanent pacemaker placement and successful weaning of the ventilation with extubation. However he has failed swallow evaluation and has been fed with Dobbhoff. He has been transferred to [facility] [place] for possible TAVR evaluation by his blocking machine operator second Dr. Sargent. 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 + Chronic mental status changes 2/2 encephalopathy , improving 09/04 pt up in chair at bedside , tolerating thickened liguids speech following for TAVR in am 09/05 Preoperative Diagnosis (1) Severe aortic stenosis Date of procedure: 09/05/18 Procedure: Transcatheter aortic valve replacement Implants: 34 mm Medtronic Evolut R bioprosthetic aortic valve 09/06 Doing fair , urine in simental bag dk patricia concentrated/ agree with short term IV fluids both groins sites with minimal ecchymosis Objective: Vital Signs - 24 hr 09/05/18 15:56 09/05/18 17:58 09/05/18 20:00 Temperature 98.2 F Pulse Rate 82 Respiratory Rate 14 14 16 Blood Pressure 139/86 Pulse Oximetry 95 09/06/18 00:00 09/06/18 04:00 09/06/18 07:00 Temperature 98.4 F 98.1 F Pulse Rate 86 82 79 Respiratory Rate 16 16 12 Blood Pressure 152/78 H 139/78 127/79 Pulse Oximetry 96 94 L 94 L 09/06/18 08:00 09/06/18 11:00 09/06/18 12:00 Temperature 97.4 F L Pulse Rate 80 Respiratory Rate 14 Blood Pressure 113/65 Pulse Oximetry 96 93 L 93 L 09/06/18 15:10 09/06/18 15:11 Temperature 97.9 F Pulse Rate 80 80 Respiratory Rate 16 Blood Pressure 123/80 Pulse Oximetry 94 L GENERAL: Awake, sleepy oriented SKIN: Warm and dry. dressing to both groin sites , incision intact to left chest HEAD: Normocephalic. EYES: No scleral icterus. No injection or drainage. NECK: Supple, trachea midline. No JVD or lymphadenopathy. CARDIOVASCULAR: Regular rate and rhythm without murmurs, gallops, or rubs. RESPIRATORY: Breath sounds equal bilaterally. No accessory muscle use. GASTROINTESTINAL: Abdomen soft, non-tender, nondistended. MUSCULOSKELETAL: No cyanosis, or edema. BACK: Nontender without obvious deformity. No CVA tenderness. Labs: Laboratory Results - last 12 hr 09/06/18 09/06/18 09/06/18 04:35 04:35 04:35 WBC 9.2 RBC 4.08 L Hgb 13.7 Hct 39.8 MCV 97.5 MCH 33.7 MCHC 34.5 RDW 15.8 Plt Count 285 MPV 7.6 PT INR APTT 60.8 H Sodium 142 Potassium 3.6 Chloride 110 H Carbon Dioxide 23.0 Anion Gap 9 BUN 8 Creatinine 0.96 Estimated GFR 76 L POC Glucose Random Glucose 84 Calcium 8.0 L Total Bilirubin 1.1 H AST 49 H ALT 33 Alkaline Phosphatase 105 Total Protein 6.6 Albumin 2.5 L 09/06/18 09/06/18 09/06/18 07:14 08:38 11:32 WBC RBC Hgb Hct MCV MCH MCHC RDW Plt Count MPV PT 32.7 H D INR 3.2 APTT Sodium Potassium Chloride Carbon Dioxide Anion Gap BUN Creatinine Estimated GFR POC Glucose 78 109 Random Glucose Calcium Total Bilirubin AST ALT Alkaline Phosphatase Total Protein Albumin Result Diagrams: 09/06/18 04:35 09/06/18 04:35 - Plan (1) Severe aortic stenosis Plan: for TAVR in am Severe aortic valve stenosis Status post transcatheter valve replacement. Acute systolic congestive heart failure Severely reduced left ventricular systolic function. On Entresto blood pressure is much improved. beta-meg. diuretic therapy. Atrial fibrillation Patient has tachycardia bradycardia syndrome. s/p BiVICD. Cardiomyopathy, nonischemic Cardiac catheterization showed only mild nonobstructive coronary artery disease. Mitral regurgitation improved after trans-catheter to valve replacement. Follow-up limited transthoracic echocardiogram today. Pulmonary embolism Started on Coumadin. Follow INR daily. Currently on Plavix and Coumadin. When INR is therapeutic, we will discontinue Plavix and continue aspirin and Coumadin. At that time we would also discontinue her gastric band. Therapeutic INR is greater than 2.0. 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 Transition to Coumadin. Follow-up with hematology in the outpatient setting. further orders and f/u as per Cardiology will sign off
--- NOTE | 2018-09-06 17:56 | ECG ---
Date Performed: 09/05/2018 Time Performed: 13:32:32 PTAGE: 77 years EKG: Demand pacing Pacemaker rhythm - no further analysis Abnormal ECG Compared to PREVIOUS TRACING , PVCs no longer present, otherwise no significant change. PREVIOUS TRAC IN08/29/2018 03.07.32 DOCTOR: Rd Clancy Interpretating Date/Time 09/06/2018 17:55:51
--- NOTE | 2018-09-06 17:58 | ECG ---
Date Performed: 09/06/2018 Time Performed: 07:16:34 PTAGE: 77 years EKG: Ventricular pacing Occasional PVCs Since previous tracing, no significant change noted Abno rmal ECG PREVIOUS TRACING : 09/05/2018 13.32 DOCTOR: Rd Clancy Interpretating Date/Time 09/06/2018 17:56:40
[2018-09-07] MEDS: Sod Chloride 0.9% Inj 1,000 ML IV.CONT SCH ×3 (01:11→18:33)
[2018-09-07 05:08] LABS: Baso % (Auto) 0.2 % (0.0-2.0); Eos # (Auto) 0.1 th/mm3 (0.0-0.4); Eos % (Auto) 0.8 % (0.0-4.0); Hematocrit 35.1 % (39.0-51.0); Hemoglobin 11.8 gm/dL (13.0-17.0); Lymph # (Auto) 1.1 th/mm3 (1.0-4.8); Lymph % (Auto) 14.9 % (9.0-44.0); Mean Corpuscular HGB Conc 33.7 % (32.0-36.0); Mean Corpuscular Hemoglobin 33.3 pg (27.0-34.0); Mean Corpuscular Volume 98.7 fL (80.0-100.0); Mean Platelet Volume 7.9 fL (7.0-11.0); Mono # (Auto) 1.1 th/mm3 (0.0-0.9); Neut # (Auto) 5.1 th/mm3 (1.8-7.7); Neut % (Auto) 69.1 % (16.0-70.0); Platelet Count 214 th/mm3 (150-450); Red Blood Count 3.56 mil/mm3 (4.50-5.90); Red Cell Distribution Width 15.8 % (11.6-17.2); White Blood Count 7.3 th/mm3 (4.0-11.0)
[2018-09-07 05:22] LABS: Activated Partial Thrombo Time 30.8 sec (23.4-31.7); INR 1.4 Ratio; Prothrombin Time 14.1 sec (9.8-11.6)
[2018-09-07 05:33] LABS: Anion Gap 8 meq/L (5-15); Blood Urea Nitrogen 6 mg/dL (7-18); Calcium 7.5 mg/dL (8.5-10.1); Carbon Dioxide 25.9 meq/L (21.0-32.0); Chloride 109 meq/L (98-107); Glomerular Filtration Rate Greater Than 89 mL/min (>89); Glucose,Random 76 mg/dL (74-106); Potassium 3.3 meq/L (3.5-5.1); Sodium 143 meq/L (136-145)
[2018-09-07] MEDS: Insulin NovoLOG Aspart Correctional Sugar Inj SQ SCH ×4 (07:53→22:27)
--- NOTE | 2018-09-07 08:16 | XR ---
EXAM DATE: 09/07/2018 8:11 AM EST AGE/SEX: 77 years / Male INDICATIONS: Aortic stenosis. CLINICAL DATA: This is the patient's initial encounter. Patient reports that signs and symptoms have been present for 1 day and indicates a pain score of 0/10. MEDICAL/SURGICAL HISTORY: None. None. COMPARISON: [facility], CHEST 1V SINGLE AP, 08/30/2018. . FINDINGS: Pacemaker implanted in the left chest. Feeding tube has been removed. The heart remains enlarged. Mild interstitial edema is present. There is no evidence consolidation pl eural effusion or pneumothorax. CONCLUSION: Pacemaker, cardiomegaly with mild interstitial edema. Electronically signed by: Gabriel Quintanilla MD Board Certified Radiologist 09/07/2018 8:15 AM EST
[2018-09-07] MEDS ORDERED: Argatroban Inj 250 MG in Sodium Chlor 0.9% Inj 247.5 ML IV.CONT PRN (08:18)
--- NOTE | 2018-09-07 08:24 | P.PNCA ---
Subjective Interval history: Doing much better today. Eyes open. Alert. Oriented x2. He was up to a chair yesterday with max assist. Medications and Allergies Active Medications: Active Medications Acetaminophen (Tylenol) 650 mg PO Q6H PRN PRN Reason: PAIN 1-10 AND/OR FEVER >101F Last Admin: 09/05/18 17:20 Dose: 650 mg Al Hydroxide/Mg Hydroxide (Milk Of Magnkerry Liq) 30 ml PO Q12H PRN PRN Reason: Mild Constipation Albuterol (Duoneb Neb (Prn)) 1 ampul NEB Q2HR NEB PRN PRN Reason: WHEEZING Aspirin (Aspirin) 325 mg PO [employer] [facility] Stop: 09/07/18 17:20 Aspirin (Ecotrin) 81 mg PO DAILY [facility] Bisacodyl (Dulcolax Supp) 10 mg RECTAL DAILY PRN PRN Reason: SEVERE CONSITIPATION Carvedilol (Coreg) 3.125 mg PO BID [facility] Last Admin: 09/06/18 21:24 Dose: 3.125 mg Chlorhexidine Gluconate (Chlorhexidine 2% Cloth) 3 pack [employer] [facility] Stop: 09/07/18 17:20 Clonidine HCl (Catapres) 0.2 mg PO Q6H PRN PRN Reason: SBP > 160 mmHg Dextrose (D50w Vial) 50 ml IV.PUSH UNSCH PRN PRN Reason: PER HYPOGLYCEMIA PROTOCOL Last Admin: 08/29/18 17:57 Dose: 50 ml Ferrous Sulfate (Ferosul) 325 mg PO BID@1200,1700 [facility] Last Admin: 09/06/18 16:51 Dose: 325 mg Folic Acid (Folic Acid) 1 mg PO DAILY [facility] Last Admin: 09/06/18 09:08 Dose: 1 mg Furosemide (Lasix) 20 mg PO DAILY [facility] Glucagon (Glucagon Inj) 1 mg OTHER PRN PRN PRN Reason: for Hypoglycemia Protocol Hydralazine HCl (Apresoline Inj) 10 mg IV.PUSH Q30M PRN PRN Reason: SBP > 160 mmHg Cefazolin Sodium/Dextrose (Ancef 2 Gm Premix Inj) 2 gm in 50 mls @ 100 mls/hr IV.SIG ONCE [facility] Stop: 09/07/18 17:20 Last Infusion: 09/05/18 11:54 Dose: Infused Sodium Chloride (Ns Inj) 1,000 mls @ 125 mls/hr IV.CONT .Q8H [facility] Last Admin: 09/07/18 01:11 Dose: 125 mls/hr Argatroban 250 mg/ Sodium (Chloride) 250 mls @ 0 mls/hr IV.CONT TITRATE PRN; Protocol PRN Reason: Per Protocol Insulin Aspart (Novolog Insulin Correctional Sugar Inj) 0 unit SQ ACHS [facility]; Protocol Last Admin: 09/07/18 07:53 Dose: Not Given Lactulose (Lactulose Liq) 30 ml PO DAILY PRN PRN Reason: SEVERE CONSITIPATION Methotrexate (Rheumatrex) 15 mg PO Fr [facility] Last Admin: 08/31/18 09:16 Dose: 15 mg Mupirocin (Bactroban 2% Nasal Oint) 1 applicatio EACH [employer] [facility] Stop: 09/07/18 17:20 Ondansetron HCl (Zofran Inj) 4 mg IV.PUSH Q6H PRN PRN Reason: NAUSEA OR VOMITING Ondansetron HCl (Zofran Inj) 4 mg IV.PUSH ONCE PRN PRN Reason: NAUSEA OR VOMITING Povidone Iodine (Betadine 5% Antisepsis Kit) 1 applicatio [employer] [facility] Stop: 09/07/18 17:20 Sacubitril/Valsartan (Entresto 24 Mg/26 Mg Tablet) 1 tab PO BID [facility] Last Admin: 09/06/18 21:24 Dose: 1 tab Senna/Docusate Sodium (Georgiana-Colace) 1 tab PO BID [facility] Last Admin: 09/06/18 21:24 Dose: 1 tab Sennosides (Senokot) 17.2 mg PO Q12H PRN PRN Reason: Moderate Constipation Sodium Chloride (Ns Flush) 2 ml IV.FLUSH BID [facility] Last Admin: 09/06/18 21:25 Dose: 2 ml Sodium Chloride (Ns Flush) 2 ml IV.FLUSH PRN PRN PRN Reason: FLUSH AFTER USING IV ACCESS Vitamin D (Vitamin D3) 1,000 unit PO DAILY [facility] Last Admin: 09/06/18 09:08 Dose: 1,000 unit Warfarin Sodium (Coumadin) 2.5 mg PO DAILY@1600 [facility] Allergies Allergy/AdvReac Type Severity Reaction Status Date / Time gemfibrozil Allergy Redness of Verified 08/29/18 00:15 Skin heparin AdvReac Severe Other Verified 09/05/18 11:25 Home Medications Medication Instructions Recorded Confirmed Type aspirin 81 mg PO DAILY 08/29/18 08/29/18 History cholecalciferol (vitamin D3) 1,000 unit PO DAILY 08/29/18 08/29/18 History [Vitamin D3] diltiazem HCl 120 mg PO DAILY 08/29/18 08/29/18 History fenofibrate PO DAILY 08/29/18 History folic acid 1 mg PO DAILY 08/29/18 08/29/18 History furosemide 20 mg PO DAILY 08/29/18 08/29/18 History lisinopril 20 mg PO DAILY 08/29/18 08/29/18 History metformin 500 mg PO QPM 08/29/18 08/29/18 History methotrexate sodium 15 mg PO FR 08/29/18 08/29/18 History umeclidinium-vilanterol [Anoro 1 inh INHALATION Q24H 08/29/18 08/29/18 History Ellipta] warfarin 2.5 mg PO DAILY 08/29/18 08/29/18 History Physical Exam Vital signs: Vital Signs 09/06/18 11:00 09/06/18 12:00 09/06/18 15:10 Temperature 97.4 F L Pulse Rate 80 80 Respiratory Rate 14 Blood Pressure 113/65 Pulse Oximetry 93 L 93 L 09/06/18 15:11 09/06/18 15:59 09/06/18 19:00 Temperature 97.9 F 98.1 F Pulse Rate 80 84 Respiratory Rate 16 20 Blood Pressure 123/80 136/76 Pulse Oximetry 94 L 95 93 L 09/06/18 20:00 09/06/18 23:00 09/07/18 00:00 Temperature 97.6 F Pulse Rate 82 Respiratory Rate 16 Blood Pressure 128/75 Pulse Oximetry 93 L 97 97 09/07/18 03:00 09/07/18 04:00 09/07/18 07:40 Temperature 98.2 F Pulse Rate 79 79 Respiratory Rate 20 Blood Pressure 118/74 Pulse Oximetry 94 L 94 L 09/07/18 07:42 Temperature 98.4 F Pulse Rate 79 Respiratory Rate 18 Blood Pressure 128/76 Pulse Oximetry 94 L Intake & Output 09/06/18 09/07/18 09/07/18 18:59 06:59 18:59 Intake Total 2384 / 2384 1180 / 1180 Output Total 1500 / 1500 125 / 125 Balance 884 / 884 1055 / 1055 Weight 74.5 kg Intake: IV 1904 / 1904 1000 / 1000 Novastan Inj 250 MG In NS Inj 154 / 154 247.5 ML @ Per Protocol IV.CONT TITRATE PRN Rx#:[id number] NS Inj 1,000 ML @ 125 mls/hr IV 1750 / 1750 1000 / 1000 .CONT .Q8H [facility] Rx#:[id number] Oral 480 / 480 180 / 180 Output: Urine 1500 / 1500 125 / 125 Other: # Incontinent Voids 3 # Urine Diapers 3 Date of Last Bowel Movement 08/26/18 09/06/18 09/04/18 # Bowel Movements 0 1 - Constitutional no acute distress - Routine HEENT Exam Eye: Present: EOMI, PERRL ENT: Present: mucous membranes moist - Routine Neck Exam Absent: JVD - Routine Respiratory Exam Present: CTA bilaterally - Routine Cardiovascular Exam Present: RRR. Absent: murmur - Routine Abdominal Exam Present: soft, normoactive bowel sounds - Routine Extremities Exam Absent: edema - Routine Neurological Exam Present: oriented X3, CN II-XII intact. Absent: sensory deficit, motor deficit - Urinary Catheter Management Indwelling Urethral Catheter Cath placed during this visit: no Condom Cath placed during this visit: yes Reason for continuing: Not indwelling catheter Insertion date: 09/05/18 Insertion time: 22:00 Results 09/07/18 04:30 09/07/18 04:30 Cardiac Enzymes 09/06/18 Range/Units 04:35 AST 49 H (15-37) U/L Coagulation 09/05/18 09/06/18 09/06/18 Range/Units 08:15 04:35 08:38 PT 32.7 H D (9.8-11.6) sec APTT 54.7 H D 60.8 H (23.4-31.7) sec 09/07/18 Range/Units 04:30 PT 14.1 H D (9.8-11.6) sec APTT 30.8 D (23.4-31.7) sec CBC 09/06/18 09/07/18 Range/Units 04:35 04:30 WBC 9.2 7.3 (4.0-11.0) th/mm3 RBC 4.08 L 3.56 L (4.50-5.90) mil/mm3 Hgb 13.7 11.8 L (13.0-17.0) gm/dL Hct 39.8 35.1 L (39.0-51.0) % Plt Count 285 214 (150-450) th/mm3 Neut # (Auto) 5.1 (1.8-7.7) th/mm3 Lymph # (Auto) 1.1 (1.0-4.8) th/mm3 Taliaferro # (Auto) 1.1 H (0.0-0.9) th/mm3 Eos # (Auto) 0.1 (0.0-0.4) th/mm3 Baso # (Auto) 0.0 (0.0-0.2) th/mm3 Comprehensive Metabolic Panel 09/06/18 09/07/18 Range/Units 04:35 04:30 Sodium 142 143 (136-145) meq/L Potassium 3.6 3.3 L (3.5-5.1) meq/L Chloride 110 H 109 H (98-107) meq/L Carbon Dioxide 23.0 25.9 (21.0-32.0) meq/L BUN 8 6 L (7-18) mg/dL Creatinine 0.96 0.69 (0.60-1.30) mg/dL Calcium 8.0 L 7.5 L (8.5-10.1) mg/dL AST 49 H (15-37) U/L ALT 33 (12-78) U/L Alkaline Phosphatase 105 (45-117) U/L Total Protein 6.6 (6.4-8.2) g/dL Albumin 2.5 L (3.4-5.0) g/dL Intake and Output 09/06/18 09/07/18 09/07/18 22:59 06:59 14:59 Intake Total 1480 / 1480 1180 / 1180 Output Total 1500 / 1500 125 / 125 Balance - / -20 1055 / 1055 Intake: IV 1000 / 1000 1000 / 1000 NS Inj 1,000 ML @ 125 mls/hr IV 1000 / 1000 1000 / 1000 .CONT .Q8H [facility] Rx#:[id number] Oral 480 / 480 180 / 180 Output: Urine 1500 / 1500 125 / 125 Other: # Incontinent Voids 3 # Urine Diapers 3 Date of Last Bowel Movement 08/26/18 09/06/18 09/04/18 # Bowel Movements 0 1 Weight 74.5 kg - Imaging and Cardiology Imaging: Impressions Chest X-Ray 09/07/18 08:00 CONCLUSION: Pacemaker, cardiomegaly with mild interstitial edema. Assessment and Plan - Plan Severe aortic valve stenosis Status post transcatheter valve replacement. Acute systolic congestive heart failure Severely reduced left ventricular systolic function. Continue Entresto and Coreg. We will decrease Lasix as he seems well compensated. Renal function normal. Atrial fibrillation Patient has tachycardia bradycardia syndrome. s/p BiVICD. Tolerating beta- meg. Cardiomyopathy, nonischemic Cardiac catheterization showed only mild nonobstructive coronary artery disease. Mitral regurgitation improved after trans-catheter to valve replacement. Follow-up limited transthoracic echocardiogram today. Continue guideline directed medical therapy. Pulmonary embolism INR was 3.2 yesterday. Argatroban gtt was discontinued. Patient's INR today is 1.4. We will need to re-dose Coumadin starting tonight. We will restart her gastric band. I am going to change Plavix to aspirin in anticipation of his discharge planning. On discharge once his INR is 2.0, he will goal to rehab on aspirin 81 mg daily in addition to therapeutic Coumadin dosing. Continue with physical rehabilitation. Plan for inpatient rehabilitation Case management assistance for disposition Possible transfer to inpatient rehab once INR is therapeutic.
[2018-09-07] MEDS: Famotidine PF Inj 20 MG/2 ML Vial IV.PUSH SCH (08:25)
[2018-09-07] MEDS: Folic Acid 1 MG Tablet PO SCH (08:31)
[2018-09-07] MEDS: Furosemide 20 MG Tablet PO SCH (08:51)
[2018-09-07] MEDS: Senna/Docusate Sodium 8.6/50 MG Tablet PO SCH ×2 (09:22→22:28)
[2018-09-07] MEDS: Ferrous Sulfate 325 MG Tablet PO SCH ×2 (11:43→17:26)
--- NOTE | 2018-09-07 17:45 | P.PNIM ---
Subjective Interval history: No new clinical complaints. Physical Exam Vital signs: Last Vital Signs Temp 97.9 F 09/07/18 15:11 Pulse 82 09/07/18 17:04 Resp 18 09/07/18 15:11 BP 133/83 09/07/18 15:11 Pulse Ox 99 09/07/18 16:00 Narrative: GENERAL: This is a well-nourished, well-developed patient, in no apparent distress. CARDIOVASCULAR: irregular, [place] RESPIRATORY: Clear to auscultation. Breath sounds equal bilaterally. No wheezes , rales, or rhonchi. GASTROINTESTINAL: Abdomen soft, non-tender, nondistended. Normal active bowel sounds MUSCULOSKELETAL: Extremities without clubbing, cyanosis, or edema. NEURO: Alert & Oriented x4 to person, place, time, situation. Moves all ext x4 Results Labs CBC & Chem 7: 09/09/18 01:22 09/09/18 01:22 Assessment and Plan Plan 1. Severe AVS 2. Acute Systolic CHF NICM 3. atrial fibrillation 4. 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 Dysphagia 7.general Weakness 8.DM 9. hematuria. - PT - Speech eval. Mod Barium swallow 08/31 - tolerating PO diet - per nursing difficulties with sundowning - SSI - Case d/w Cardiology, Dr. Sargent (09/03). - entresto stopped 09/03 & started lisiopril 2.5mg daily - hypotension resolved - coreg, asa, lasix - argatroban stopped prior to surgery - CT brain (08/31) 1. No acute hemorrhage, mass or evidence of acute infarction. 2. Atrophy and chronic small vessel ischemic changes. - INR 3.2 (09/06), 1.4 (09/07) - Case d/w Hematology, Dr. To (09/06) - argotroban resumed - repeat INR in AM - CXR (09/07) --> mild interstitial edema - encourage PO intake - anticipate discharge to [place] once stable after surgery - supportive care 2) DM2, stable - SSI
[2018-09-08 05:45] LABS: INR 3.9 Ratio; Prothrombin Time 39.3 sec (9.8-11.6)
[2018-09-08] MEDS: Folic Acid 1 MG Tablet PO SCH (09:56)
[2018-09-08] MEDS: Senna/Docusate Sodium 8.6/50 MG Tablet PO SCH ×2 (09:56→21:12)
[2018-09-08] MEDS: Furosemide 20 MG Tablet PO SCH (09:57)
[2018-09-08] MEDS: Insulin NovoLOG Aspart Correctional Sugar Inj SQ SCH ×4 (09:58→21:14)
[2018-09-08] MEDS: Sod Chloride 0.9% Inj 1,000 ML IV.CONT SCH ×2 (15:23→15:24)
[2018-09-08] MEDS: Ferrous Sulfate 325 MG Tablet PO SCH ×2 (16:28→18:45)
[2018-09-08 17:01] LABS: INR 1.5 Ratio; Prothrombin Time 15.1 sec (9.8-11.6)
--- NOTE | 2018-09-08 17:56 | P.PNIM ---
Subjective Interval history: Pt has no new clinical complaints. Physical Exam Vital signs: Last Vital Signs Temp 98 F 09/08/18 16:24 Pulse 84 09/08/18 17:00 Resp 16 09/08/18 16:24 BP 121/75 09/08/18 16:24 Pulse Ox 97 09/08/18 16:24 Narrative: GENERAL: This is a well-nourished, well-developed patient, in no apparent distress. CARDIOVASCULAR: irregular, ROSAURA RESPIRATORY: Clear to auscultation. Breath sounds equal bilaterally. No wheezes , rales, or rhonchi. GASTROINTESTINAL: Abdomen soft, non-tender, nondistended. Normal active bowel sounds MUSCULOSKELETAL: Extremities without clubbing, cyanosis, or edema. NEURO: Alert & Oriented x4 to person, place, time, situation. Moves all ext x4 Results Labs CBC & Chem 7: 09/09/18 01:22 09/09/18 01:22 Assessment and Plan Plan 1. Severe AVS 2. Acute Systolic CHF NICM 3. atrial fibrillation 4. 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 Dysphagia 7.general Weakness 8.DM 9. hematuria. - PT - Speech eval. Mod Barium swallow 08/31 - tolerating PO diet - per nursing difficulties with sundowning - SSI - Case d/w Cardiology, Dr. Sargent (09/03). - hypotension resolved - entresto - coreg 3.125mg BID - asa, lasix - argatroban stopped prior to surgery - CT brain (08/31) 1. No acute hemorrhage, mass or evidence of acute infarction. 2. Atrophy and chronic small vessel ischemic changes. - INR 3.2 (09/06), 1.4 (09/07), 3.9 (09/08), 1.5 (09/08) - Case d/w Hematology, Dr. To (09/06) - argotroban resumed - continue coumadin - repeat INR in AM - CXR (09/07) --> mild interstitial edema - encourage PO intake - anticipate discharge to [place] once stable after surgery - supportive care 2) DM2, stable - SSI
--- NOTE | 2018-09-08 18:24 | P.PNCA ---
Subjective Interval history: Resting comfortable Medications and Allergies Active Medications: Active Medications Acetaminophen (Tylenol) 650 mg PO Q6H PRN PRN Reason: PAIN 1-10 AND/OR FEVER >101F Last Admin: 09/05/18 17:20 Dose: 650 mg Al Hydroxide/Mg Hydroxide (Milk Of Magnesia Liq) 30 ml PO Q12H PRN PRN Reason: Mild Constipation Albuterol (Duoneb Neb (Prn)) 1 ampul NEB Q2HR NEB PRN PRN Reason: WHEEZING Aspirin (Ecotrin) 81 mg PO DAILY [facility] Last Admin: 09/08/18 09:57 Dose: 81 mg Bisacodyl (Dulcolax Supp) 10 mg RECTAL DAILY PRN PRN Reason: SEVERE CONSITIPATION Carvedilol (Coreg) 3.125 mg PO BID [facility] Last Admin: 09/08/18 09:56 Dose: 3.125 mg Clonidine HCl (Catapres) 0.2 mg PO Q6H PRN PRN Reason: SBP > 160 mmHg Dextrose (D50w Vial) 50 ml IV.PUSH UNSCH PRN PRN Reason: PER HYPOGLYCEMIA PROTOCOL Last Admin: 08/29/18 17:57 Dose: 50 ml Ferrous Sulfate (Ferosul) 325 mg PO BID@1200,1700 [facility] Last Admin: 09/08/18 16:28 Dose: 325 mg Folic Acid (Folic Acid) 1 mg PO DAILY [facility] Last Admin: 09/08/18 09:56 Dose: 1 mg Furosemide (Lasix) 20 mg PO DAILY [facility] Last Admin: 09/08/18 09:57 Dose: 20 mg Glucagon (Glucagon Inj) 1 mg OTHER PRN PRN PRN Reason: for Hypoglycemia Protocol Hydralazine HCl (Apresoline Inj) 10 mg IV.PUSH Q30M PRN PRN Reason: SBP > 160 mmHg Argatroban 250 mg/ Sodium (Chloride) 250 mls @ 0 mls/hr IV.CONT TITRATE PRN; Protocol PRN Reason: Per Protocol Insulin Aspart (Novolog Insulin Correctional Sugar Inj) 0 unit SQ ACHS [facility]; Protocol Last Admin: 09/08/18 16:40 Dose: Not Given Lactulose (Lactulose Liq) 30 ml PO DAILY PRN PRN Reason: SEVERE CONSITIPATION Methotrexate (Rheumatrex) 15 mg PO Fr [facility] Last Admin: 09/07/18 09:30 Dose: 15 mg Ondansetron HCl (Zofran Inj) 4 mg IV.PUSH Q6H PRN PRN Reason: NAUSEA OR VOMITING Ondansetron HCl (Zofran Inj) 4 mg IV.PUSH ONCE PRN PRN Reason: NAUSEA OR VOMITING Sacubitril/Valsartan (Entresto 24 Mg/26 Mg Tablet) 1 tab PO BID [facility] Last Admin: 09/08/18 09:57 Dose: 1 tab Senna/Docusate Sodium (Georgiana-Colace) 1 tab PO BID [facility] Last Admin: 09/08/18 09:56 Dose: 1 tab Sennosides (Senokot) 17.2 mg PO Q12H PRN PRN Reason: Moderate Constipation Sodium Chloride (Ns Flush) 2 ml IV.FLUSH BID [facility] Last Admin: 09/08/18 09:58 Dose: 2 ml Sodium Chloride (Ns Flush) 2 ml IV.FLUSH PRN PRN PRN Reason: FLUSH AFTER USING IV ACCESS Vitamin D (Vitamin D3) 1,000 unit PO DAILY [facility] Last Admin: 09/08/18 09:56 Dose: 1,000 unit Warfarin Sodium (Coumadin) 2.5 mg PO DAILY@1600 [facility] Last Admin: 09/07/18 15:52 Dose: 2.5 mg Allergies Allergy/AdvReac Type Severity Reaction Status Date / Time gemfibrozil Allergy Redness of Verified 08/29/18 00:15 Skin heparin AdvReac Severe Other Verified 09/05/18 11:25 Home Medications Medication Instructions Recorded Confirmed Type aspirin 81 mg PO DAILY 08/29/18 08/29/18 History cholecalciferol (vitamin D3) 1,000 unit PO DAILY 08/29/18 08/29/18 History [Vitamin D3] diltiazem HCl 120 mg PO DAILY 08/29/18 08/29/18 History fenofibrate PO DAILY 08/29/18 History folic acid 1 mg PO DAILY 08/29/18 08/29/18 History furosemide 20 mg PO DAILY 08/29/18 08/29/18 History lisinopril 20 mg PO DAILY 08/29/18 08/29/18 History metformin 500 mg PO QPM 08/29/18 08/29/18 History methotrexate sodium 15 mg PO FR 08/29/18 08/29/18 History umeclidinium-vilanterol [Anoro 1 inh INHALATION Q24H 08/29/18 08/29/18 History Ellipta] warfarin 2.5 mg PO DAILY 08/29/18 08/29/18 History Physical Exam Vital signs: Vital Signs 09/07/18 18:25 09/07/18 19:00 09/07/18 20:00 Temperature 97.5 F L Pulse Rate 80 81 80 Respiratory Rate 14 Blood Pressure 131/83 Pulse Oximetry 99 09/07/18 21:00 09/07/18 22:00 09/07/18 23:00 Temperature 97.9 F Pulse Rate 80 84 85 Respiratory Rate 14 Blood Pressure 149/84 H Pulse Oximetry 91 L 09/08/18 00:00 09/08/18 01:00 09/08/18 02:00 Temperature Pulse Rate 82 80 85 Respiratory Rate Blood Pressure Pulse Oximetry 09/08/18 03:00 09/08/18 04:00 09/08/18 05:00 Temperature 97.9 F Pulse Rate 84 82 82 Respiratory Rate 14 Blood Pressure 125/75 Pulse Oximetry 95 09/08/18 06:00 09/08/18 07:00 09/08/18 08:00 Temperature 97.9 F Pulse Rate 82 82 82 Respiratory Rate 16 Blood Pressure 144/85 H Pulse Oximetry 97 09/08/18 09:00 09/08/18 10:00 09/08/18 11:00 Temperature 98.5 F Pulse Rate 82 82 85 Respiratory Rate 16 Blood Pressure 122/60 Pulse Oximetry 95 09/08/18 12:00 09/08/18 13:00 09/08/18 14:00 Temperature Pulse Rate 80 78 86 Respiratory Rate Blood Pressure Pulse Oximetry 09/08/18 15:00 09/08/18 16:00 09/08/18 16:24 Temperature 98 F Pulse Rate 82 84 79 Respiratory Rate 16 Blood Pressure 121/75 Pulse Oximetry 97 09/08/18 17:00 Temperature Pulse Rate 84 Respiratory Rate Blood Pressure Pulse Oximetry Intake & Output 09/07/18 09/08/18 09/08/18 18:59 06:59 18:59 Intake Total 1640 / 1640 480 / 480 40 / 40 Output Total 680 / 680 Balance 1640 / 1640 -200 / -200 40 / 40 Intake: IV 800 / 800 40 / 40 Novastan Inj 250 MG In NS Inj 40 / 40 247.5 ML @ Per Protocol IV.CONT TITRATE PRN Rx#:[id number] NS Inj 1,000 ML @ 125 mls/hr IV 800 / 800 .CONT .Q8H TONY Rx#:[id number] Oral 840 / 840 480 / 480 Output: Urine 680 / 680 Other: # Urine Diapers 5 3 Date of Last Bowel Movement 09/04/18 09/08/18 09/08/18 # Bowel Movements 2 - Constitutional no acute distress, chronically ill appearing - Routine HEENT Exam Head: Present: normocephalic, atraumatic Eye: Present: EOMI, PERRL ENT: Present: mucous membranes moist - Routine Neck Exam Present: supple, full ROM, JVD - Routine Respiratory Exam Present: CTA bilaterally - Routine Cardiovascular Exam Present: RRR (V paced rhythm), S1, S2 - Routine Abdominal Exam Present: soft, normoactive bowel sounds - Routine Extremities Exam Present: full ROM, normal capillary refill. Absent: edema - Routine Skin Exam Present: intact - Routine Neurological Exam Present: alert, oriented X3 - Detailed Neurological Exam: Coma Scale Eye Opening: Spontaneous - Routine Psychiatric Exam Present: normal affect - Urinary Catheter Management Indwelling Urethral Catheter Cath placed during this visit: no Condom Cath placed during this visit: yes Reason for continuing: Not indwelling catheter Insertion date: 09/05/18 Insertion time: 22:00 Results 09/07/18 04:30 09/07/18 04:30 Coagulation 09/07/18 09/07/18 09/08/18 Range/Units 04:30 17:26 05:08 PT 14.1 H D 39.3 H D (9.8-11.6) sec APTT 30.8 D 61.5 H D 66.0 H (23.4-31.7) sec 09/08/18 Range/Units 16:44 PT 15.1 H D (9.8-11.6) sec APTT (23.4-31.7) sec CBC 09/07/18 Range/Units 04:30 WBC 7.3 (4.0-11.0) th/mm3 RBC 3.56 L (4.50-5.90) mil/mm3 Hgb 11.8 L (13.0-17.0) gm/dL Hct 35.1 L (39.0-51.0) % Plt Count 214 (150-450) th/mm3 Neut # (Auto) 5.1 (1.8-7.7) th/mm3 Lymph # (Auto) 1.1 (1.0-4.8) th/mm3 Spencer # (Auto) 1.1 H (0.0-0.9) th/mm3 Eos # (Auto) 0.1 (0.0-0.4) th/mm3 Baso # (Auto) 0.0 (0.0-0.2) th/mm3 Comprehensive Metabolic Panel 09/07/18 Range/Units 04:30 Sodium 143 (136-145) meq/L Potassium 3.3 L (3.5-5.1) meq/L Chloride 109 H (98-107) meq/L Carbon Dioxide 25.9 (21.0-32.0) meq/L BUN 6 L (7-18) mg/dL Creatinine 0.69 (0.60-1.30) mg/dL Calcium 7.5 L (8.5-10.1) mg/dL Intake and Output 09/08/18 09/08/18 09/08/18 06:59 14:59 22:59 Intake Total 480 / 480 40 / 40 Output Total 680 / 680 Balance -200 / -200 40 / 40 Intake: IV 40 / 40 Novastan Inj 250 MG In NS Inj 40 / 40 247.5 ML @ Per Protocol IV.CONT TITRATE PRN Rx#:[id number] Oral 480 / 480 Output: Urine 680 / 680 Other: # Urine Diapers 3 Date of Last Bowel Movement 09/08/18 09/08/18 # Bowel Movements 2 - Imaging and Cardiology Imaging: Impressions Chest X-Ray 09/07/18 08:00 CONCLUSION: Pacemaker, cardiomegaly with mild interstitial edema. Assessment and Plan - Assessment (1) Severe aortic stenosis Code(s): I35.0 - Nonrheumatic aortic (valve) stenosis Status: Acute (2) Congestive heart failure Code(s): I50.9 - Heart failure, unspecified Status: Acute (3) Chronic kidney disease Code(s): N18.9 - Chronic kidney disease, unspecified Status: Acute (4) COPD (chronic obstructive pulmonary disease) Code(s): J44.9 - Chronic obstructive pulmonary disease, unspecified Status: Acute (5) Atrial fibrillation Code(s): I48.91 - Unspecified atrial fibrillation Status: Acute - Plan Severe aortic valve stenosis Status post transcatheter valve replacement. TAVR Acute systolic congestive heart failure Severely reduced left ventricular systolic function. Continue Entresto and Coreg. Decreased Lasix as he seems well compensated. Renal function normal. Atrial fibrillation Patient has tachycardia bradycardia syndrome. s/p BiVICD. Tolerating beta- meg. Cardiomyopathy, nonischemic Cardiac catheterization showed only mild nonobstructive coronary artery disease. Mitral regurgitation improved after trans-catheter to valve replacement. Follow-up limited transthoracic echocardiogram today. Continue guideline directed medical therapy. Pulmonary embolism On Coumadin. Goal INR 2-3. Bridging with Argatroban Continue with physical rehabilitation. Plan for inpatient rehabilitation Case management assistance for disposition Possible transfer to inpatient rehab once INR is therapeutic.
[2018-09-08] MEDS ORDERED: Argatroban Inj 250 MG in Sodium Chlor 0.9% Inj 247.5 ML IV.CONT PRN (19:00)
[2018-09-09 02:00] LABS: Baso % (Auto) 0.7 % (0.0-2.0); Eos # (Auto) 0.1 th/mm3 (0.0-0.4); Eos % (Auto) 1.3 % (0.0-4.0); Hematocrit 37.5 % (39.0-51.0); Hemoglobin 12.8 gm/dL (13.0-17.0); Lymph # (Auto) 1.3 th/mm3 (1.0-4.8); Lymph % (Auto) 20.4 % (9.0-44.0); Mean Corpuscular HGB Conc 34.3 % (32.0-36.0); Mean Corpuscular Hemoglobin 33.4 pg (27.0-34.0); Mean Corpuscular Volume 97.6 fL (80.0-100.0); Mono # (Auto) 0.8 th/mm3 (0.0-0.9); Mono % (Auto) 11.9 % (0.0-8.0); Neut # (Auto) 4.1 th/mm3 (1.8-7.7); Neut % (Auto) 65.7 % (16.0-70.0); Platelet Count 195 th/mm3 (150-450); Red Blood Count 3.84 mil/mm3 (4.50-5.90); Red Cell Distribution Width 15.5 % (11.6-17.2); White Blood Count 6.3 th/mm3 (4.0-11.0)
[2018-09-09 02:19] LABS: Anion Gap 6 meq/L (5-15); Blood Urea Nitrogen 5 mg/dL (7-18); Calcium 7.8 mg/dL (8.5-10.1); Carbon Dioxide 26.9 meq/L (21.0-32.0); Chloride 107 meq/L (98-107); Glomerular Filtration Rate Greater Than 89 mL/min (>89); Glucose,Random 85 mg/dL (74-106); Potassium 3.4 meq/L (3.5-5.1); Sodium 140 meq/L (136-145)
[2018-09-09] MEDS: Insulin NovoLOG Aspart Correctional Sugar Inj SQ SCH ×4 (09:34→21:26)
[2018-09-09] MEDS: Furosemide 20 MG Tablet PO SCH (09:35)
[2018-09-09] MEDS: Folic Acid 1 MG Tablet PO SCH (09:35)
[2018-09-09] MEDS: Senna/Docusate Sodium 8.6/50 MG Tablet PO SCH ×2 (09:36→21:16)
[2018-09-09 10:13] LABS: INR 5.6 Ratio; Prothrombin Time 56.4 sec (9.8-11.6)
--- NOTE | 2018-09-09 12:02 | P.PNIM ---
Subjective Interval history: Patient sitting up in chair, more awake and alert today Patient was able to ambulate into the rodriguez with assistance today Physical Exam Vital signs: Last Vital Signs Temp 98.2 F 09/09/18 07:00 Pulse 78 09/09/18 10:00 Resp 16 09/09/18 07:00 BP 141/82 H 09/09/18 07:00 Pulse Ox 97 09/09/18 07:00 Narrative: GENERAL: This is a well-nourished, well-developed patient, in no apparent distress. CARDIOVASCULAR: irregular, ROSAURA RESPIRATORY: Clear to auscultation. Breath sounds equal bilaterally. No wheezes , rales, or rhonchi. GASTROINTESTINAL: Abdomen soft, non-tender, nondistended. Normal active bowel sounds MUSCULOSKELETAL: Extremities without clubbing, cyanosis, or edema. NEURO: Alert & Oriented x4 to person, place, time, situation. Moves all ext x4 Results Labs CBC & Chem 7: 09/09/18 01:22 09/09/18 01:22 Assessment and Plan Assessment (1) Severe aortic stenosis: Code(s): I35.0 - Nonrheumatic aortic (valve) stenosis Status: Acute (2) Congestive heart failure: Code(s): I50.9 - Heart failure, unspecified Status: Acute (3) Chronic kidney disease: Code(s): N18.9 - Chronic kidney disease, unspecified Status: Acute (4) COPD (chronic obstructive pulmonary disease): Code(s): J44.9 - Chronic obstructive pulmonary disease, unspecified Status: Acute (5) Atrial fibrillation: Code(s): I48.91 - Unspecified atrial fibrillation Status: Acute Plan 1. Severe AVS 2. Acute Systolic CHF NICM 3. atrial fibrillation 4. 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 Dysphagia 7.general Weakness 8.DM 9. hematuria. - PT - Speech eval. Mod Barium swallow 08/31 - tolerating PO diet - per nursing difficulties with sundowning - SSI - Case d/w Cardiology, Dr. Sargent (09/03). - hypotension resolved - entresto - coreg 3.125mg BID - asa, lasix - argatroban stopped prior to surgery - CT brain (08/31) 1. No acute hemorrhage, mass or evidence of acute infarction. 2. Atrophy and chronic small vessel ischemic changes. - INR 3.2 (09/06), 1.4 (09/07), 3.9 (09/08), 1.5 (09/08), 5.6 (09/09) - Case d/w Hematology, Dr. To (09/06) - argotroban hold - continue coumadin - repeat INR in 1400 - CXR (09/07) --> mild interstitial edema - encourage PO intake - anticipate discharge to [place] once stable after surgery - supportive care 2) DM2, stable - SSI Plan to DC to inpatient rehab once INR therapeutic Attending Attestation The exam, history, and the medical decision-making described in the above note were completed with the assistance of the mid-level provider. I reviewed and agree with the findings presented. I attest that I had a [id number] encounter with the patient on the same day, and personally performed and documented my assessment and findings in the medical record. Patient examined. Assessment and plan formulated with Jaymie Herrera PA-C. I agree with the above. _ (1) Congestive heart failure Qualifiers: Heart failure chronicity: Heart failure type: (2) Atrial fibrillation Qualifiers: Atrial fibrillation type: (3) Chronic kidney disease Qualifiers: Chronic kidney disease stage: (4) COPD (chronic obstructive pulmonary disease) Qualifiers: COPD type: Chronic bronchitis type: Emphysema type:
[2018-09-09] MEDS: Ferrous Sulfate 325 MG Tablet PO SCH ×3 (12:52→17:03)
[2018-09-09 15:13] LABS: INR 2.4 Ratio; Prothrombin Time 23.9 sec (9.8-11.6)
--- NOTE | 2018-09-09 15:42 | P.DS ---
DS: Providers Date of admission: 08/28/18 21:50 Primary care physician: Chano Painting Consults: 08/29/18 00:55 Consult to Cardiology Routine Consulting Provider: Ag Cartwright Does the patient have a V Block Saw Operator who follows them?: Yes Preferred Wood Scaler:: Bernardo Sargent Reason for Consultation: Severe AoS Notified:: Service Spoke with:: ISIDORO Date Notified:: 08/29/18 Time Notified:: 01:09 Ordering Provider: DOLORES 08/29/18 10:51 Consult to Hematology Routine Consulting Provider: Vern To Reason for Consultation: HIT positive prior to tranfer from [facility], on argatroban, now with hematuria. rec regarding continuation or dc of argatroban. Notified:: Office Spoke with:: MALACHI Date Notified:: 08/29/18 Time Notified:: 10:59 Ordering Provider: GISSELLE 08/29/18 10:59 Consult to Cardiothoracic Surgery Routine Consulting Provider: Phani Velazquez Reason for Consultation: tavr evaluation Notified:: Physician Spoke with:: DR. VELAZQUEZ Date Notified:: 08/29/18 Time Notified:: 11:03 Ordering Provider: GISSELLE 08/29/18 11:49 Consult to Hospitalist Routine Consulting Provider: Rd Lowe Reason for Consultation: Assume care in am 08/30/18 Notified:: Service Spoke with:: MANE Date Notified:: 08/29/18 Time Notified:: 11:50 Comments:: Ordering Provider: MONALISA 09/05/18 13:13 Consult to Office Mail Clerk Stat Consulting Provider: Reshma Fam For STAT consult, spoke directly to:: Office Mail Clerk Reason for Consultation: Post TAVR. Consult must be with Marcell Lazaro or [place]. Notified:: Service Spoke with:: Faustino Date Notified:: 09/05/18 Time Notified:: 13:24 Comments:: Not STAT - Routine. Ordering Provider: GISSELLE 09/05/18 15:51 Consult to Rehab Medicine Routine Consulting Provider: Haley Zhou Reason for Consultation: discharge to [place] please Notified:: Service Spoke with:: Mane Date Notified:: 09/05/18 Time Notified:: 15:55 Ordering Provider: GISSELLE Brief History from admission: 77-year-old gentleman with a known history of systolic congestive heart failure presented to emergency room at [facility] August 06, 2018 with complaints of palpitation and shortness of breath. Upon arrival to emergency room there he was found to be in A. fib with RVR. His heart rate was in 130s, he was given 1 time dose of IV diltiazem with significant improvement in his overall heart rate. He was again found to be in the acute on chronic congestive heart failure. He was given a dose of IV Lasix with improvement of his breathing but continued to require some oxygen support and subsequently been admitted to the hospital for additional evaluation and management. He has a long-standing history of atrial fibrillation on Coumadin. His echocardiogram showed ejection fraction of 30-35% with severe aortic stenosis and moderate MR. His hospital course was complicated with acute kidney injury, bradycardia, cardiogenic shock, respiratory failure requiring intubation, and the shock liver. He had a angiogram of his coronaries on 08/13 that showed no significant coronary disease. Apparently the patient became severely bradycardic in the Associate Professor Of Education received atropine, followed by temporary intravenous pacemaker placement. He has arrived in the ICU at [facility] agitated and hypoxemic requiring intubation. Later on he underwent permanent pacemaker placement and successful weaning of the ventilation with extubation. However he has failed swallow evaluation and has been fed with Dobbhoff. He has been transferred to [facility] for possible TAVR evaluation by his government teacher Dr. Sargent. DS: Diagnosis Discharge Diagnosis (1) Severe aortic stenosis: Status: Acute (2) Congestive heart failure: Status: Acute (3) Chronic kidney disease: Status: Acute (4) COPD (chronic obstructive pulmonary disease): Status: Acute (5) Atrial fibrillation: Status: Acute DS: Summary 1. Severe AVS 2. Acute Systolic CHF NICM 3. atrial fibrillation 4. 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 Dysphagia 7.general Weakness 8.DM 9. hematuria. - PT - Speech eval. Mod Barium swallow 08/31 - tolerating PO diet - per nursing difficulties with sundowning - SSI - Case d/w Cardiology, Dr. Sargent (09/03). - hypotension resolved - entresto - coreg 3.125mg BID - asa, lasix - argatroban stopped prior to surgery - CT brain (08/31) 1. No acute hemorrhage, mass or evidence of acute infarction. 2. Atrophy and chronic small vessel ischemic changes. - INR 3.2 (09/06), 1.4 (09/07), 3.9 (09/08), 1.5 (09/08), 5.6 (09/09) repeat INR (09/09) 2.4 - Case d/w Hematology, Dr. To (09/06) - argotroban hold - continue coumadin - repeat INR in 1400 - CXR (09/07) --> mild interstitial edema - encourage PO intake - anticipate discharge to [place] once stable after surgery - supportive care 2) DM2, stable - SSI Plan to DC to inpatient rehab Attending Attestation: The exam, history, and the medical decision-making described in the above note were completed with the assistance of the mid-level provider. I reviewed and agree with the findings presented. I attest that I had a [id number] encounter with the patient on the same day, and personally performed and documented my assessment and findings in the medical record. Patient examined. Assessment and plan formulated with Jaymie Herrera PA-C. I agree with the above. Time Spent with Patient Total time spent providing and/or coordinating discharge services: Quality: VTE Deep Vein Thrombosis/Pulmonary Embolism Present on Admission: No Exam Narrative Exam Narrative: GENERAL: This is a well-nourished, well-developed patient, in no apparent distress. CARDIOVASCULAR: irregular, ROSAURA RESPIRATORY: Clear to auscultation. Breath sounds equal bilaterally. No wheezes , rales, or rhonchi. GASTROINTESTINAL: Abdomen soft, non-tender, nondistended. Normal active bowel sounds MUSCULOSKELETAL: Extremities without clubbing, cyanosis, or edema. NEURO: Alert & Oriented x4 to person, place, time, situation. Moves all ext x4 Results Labs on day of discharge: Labs from last 24 hours 09/09/18 09/09/18 09/09/18 14:45 12:10 09:42 WBC RBC Hgb Hct MCV MCH MCHC RDW Plt Count MPV Neut % (Auto) Lymph % (Auto) Laurel % (Auto) Eos % (Auto) Baso % (Auto) Neut # (Auto) Lymph # (Auto) [place] # (Auto) Eos # (Auto) Baso # (Auto) WBC Differential Differential Comment PT 23.9 H D 56.4 H D INR 2.4 5.6 APTT Sodium Potassium Chloride Carbon Dioxide Anion Gap BUN Creatinine Estimated GFR POC Glucose 107 Random Glucose Calcium 09/09/18 09/09/18 09/09/18 07:36 01:22 01:22 WBC RBC Hgb Hct MCV MCH MCHC RDW Plt Count MPV Neut % (Auto) Lymph % (Auto) Laurel % (Auto) Eos % (Auto) Baso % (Auto) Neut # (Auto) Lymph # (Auto) [place] # (Auto) Eos # (Auto) Baso # (Auto) WBC Differential Differential Comment PT INR APTT 61.3 H Sodium 140 Potassium 3.4 L Chloride 107 Carbon Dioxide 26.9 Anion Gap 6 BUN 5 L Creatinine 0.66 Estimated GFR Greater than 89 POC Glucose 81 Random Glucose 85 Calcium 7.8 L 09/09/18 09/08/18 09/08/18 01:22 21:14 16:44 WBC 6.3 RBC 3.84 L Hgb 12.8 L Hct 37.5 L MCV 97.6 MCH 33.4 MCHC 34.3 RDW 15.5 Plt Count 195 MPV 8.0 Neut % (Auto) 65.7 Lymph % (Auto) 20.4 Laurel % (Auto) 11.9 H Eos % (Auto) 1.3 Baso % (Auto) 0.7 Neut # (Auto) 4.1 Lymph # (Auto) 1.3 Laurel # (Auto) 0.8 Eos # (Auto) 0.1 Baso # (Auto) 0.0 WBC Differential . Differential Comment Auto diff final PT 15.1 H D INR 1.5 APTT Sodium Potassium Chloride Carbon Dioxide Anion Gap BUN Creatinine Estimated GFR POC Glucose 101 Random Glucose Calcium 09/08/18 16:34 WBC RBC Hgb Hct MCV MCH MCHC RDW Plt Count MPV Neut % (Auto) Lymph % (Auto) Laurel % (Auto) Eos % (Auto) Baso % (Auto) Neut # (Auto) Lymph # (Auto) La[place] # (Auto) Eos # (Auto) Baso # (Auto) WBC Differential Differential Comment PT INR APTT Sodium Potassium Chloride Carbon Dioxide Anion Gap BUN Creatinine Estimated GFR POC Glucose 106 Random Glucose Calcium Impressions ITS Impressions Abdomen X-Ray 08/29/18 09:56 CONCLUSION: 1. Dobbhoff feeding tube with the tip at the level of the distal stomach. 2. Visualization of the known abdominal aortic aneurysm. 3. Bilateral renal calculi. Videofluoroscopic Swallow 08/31/18 00:00 CONCLUSION: 1. The patient's Dobbhoff type feeding tube was coiled in the throat and the loop was first removed from the tube prior to the study. 2. No vestibular penetration or aspiration. The patient had a delayed oral preparatory phase. Head CT 08/31/18 13:27 CONCLUSION: 1. No acute hemorrhage, mass or evidence of acute infarction. 2. Atrophy and chronic small vessel ischemic changes. . Chest X-Ray 09/07/18 08:00 CONCLUSION: Pacemaker, cardiomegaly with mild interstitial edema. Discharge Plan Discharge Disposition Patient Disposition: Discharge to SNF Discharge Condition Condition: Stable Discharge Order Discharge Orders: Discharge Order (Routine); Ordered 09/09/18 Ordered By: Jaymie Herrera Physicians Team Primary Care Provider: Chano Painting Attending Provider: Rd Lowe Other Providers: Ag Cartwright ; Rd Lowe ; Phani Velazquez ; Vern To ; Reshma Fam ; Haley Zhou Rxs /Orders / Referrals /Forms Prescriptions: New carvedilol [Coreg] 3.125 mg Tablet 3.125 mg PO BID 30 Days Qty: 60 RF: 0 sacubitril-valsartan [Entresto] 24-26 mg Tablet 1 tab PO BID 30 Days Qty: 60 RF: 0 ferrous sulfate 325 mg (65 mg iron) tablet 325 mg PO DAILY Qty: 30 RF: 0 Continue lisinopril 20 mg Tablet 20 mg PO DAILY RF: 0 folic acid 1 mg Tablet 1 mg PO DAILY RF: 0 furosemide 20 mg Tablet 20 mg PO DAILY RF: 0 umeclidinium-vilanterol [Anoro Ellipta] 62.5-25 mcg/actuation Blister With Device 1 inh INHALATION Q24H RF: 0 fenofibrate 145 mg tablet PO DAILY RF: 0 aspirin 81 mg Tablet,Delayed Release (Dr/Ec) 81 mg PO DAILY RF: 0 methotrexate sodium 15 mg Tablet 15 mg PO FR RF: 0 metformin 500 mg Tablet Extended Release 24 Hr 500 mg PO QPM RF: 0 cholecalciferol (vitamin D3) [Vitamin D3] 1,000 unit Capsule 1,000 unit PO DAILY RF: 0 warfarin 2.5 mg Tablet 2.5 mg PO DAILY RF: 0 Discontinued diltiazem HCl 120 mg Capsule,Extended Release 24 Hr 120 mg PO DAILY RF: 0 Referrals: Chano Painting MD [Primary Care Provider] - See Instructions (follow up in 1 week ) Phani Velazquez MD [Physician] - See Instructions (follow up in 2 weeks) Bernardo Sargent MD [Physician] - See Instructions (follow up in 2 weeks) Discharge Instructions Patient Printed Instructions: Wound Infection (DC), Complete Blenderized Diet ( DC), Heart Healthy Diet (DC), How to Prevent Pressure Injuries (DC), Chronic Wound Care (DC), Surgical Site Infections (DC), Transcatheter Aortic Valve Replacement (DC), Exercise Safety (ED) Additional Instructions: Please call your PCP and make follow up appointment for next one to two weeks. Call Lino Hall RN Structural Sanding Machine Tender with any questions or concerns. Ultrasound Department at [facility] will call with appt for Echocardiogram prior to appt with Dr Sargent. 30 day TAVR follow up 10/09/[address] Sargent [phone] [facility] Cardiology [address] [place], [place] [address] [place] [address] Ultrasound Department at [facility] will call with appt for Echocardiogram prior to appt with Dr Sargent. 1 year TAVR follow up 09/03/[address] Sargent [phone] [facility] Cardiology [facility] [place] [address] [address]
--- NOTE | 2018-09-09 19:49 | P.PNCA ---
Subjective Interval history: He said he felt better, poor appetite Medications and Allergies Active Medications: Active Medications Acetaminophen (Tylenol) 650 mg PO Q6H PRN PRN Reason: PAIN 1-10 AND/OR FEVER >101F Last Admin: 09/05/18 17:20 Dose: 650 mg Al Hydroxide/Mg Hydroxide (Milk Of Magnesia Liq) 30 ml PO Q12H PRN PRN Reason: Mild Constipation Albuterol (Duoneb Neb (Prn)) 1 ampul NEB Q2HR NEB PRN PRN Reason: WHEEZING Aspirin (Ecotrin) 81 mg PO DAILY [facility] Last Admin: 09/09/18 09:35 Dose: 81 mg Bisacodyl (Dulcolax Supp) 10 mg RECTAL DAILY PRN PRN Reason: SEVERE CONSITIPATION Carvedilol (Coreg) 3.125 mg PO BID [facility] Last Admin: 09/09/18 09:36 Dose: 3.125 mg Clonidine HCl (Catapres) 0.2 mg PO Q6H PRN PRN Reason: SBP > 160 mmHg Dextrose (D50w Vial) 50 ml IV.PUSH UNSCH PRN PRN Reason: PER HYPOGLYCEMIA PROTOCOL Last Admin: 08/29/18 17:57 Dose: 50 ml Ferrous Sulfate (Ferosul) 325 mg PO BID@1200,1700 [facility] Last Admin: 09/09/18 17:03 Dose: 325 mg Folic Acid (Folic Acid) 1 mg PO DAILY [facility] Last Admin: 09/09/18 09:35 Dose: 1 mg Furosemide (Lasix) 20 mg PO DAILY [facility] Last Admin: 09/09/18 09:35 Dose: 20 mg Glucagon (Glucagon Inj) 1 mg OTHER PRN PRN PRN Reason: for Hypoglycemia Protocol Hydralazine HCl (Apresoline Inj) 10 mg IV.PUSH Q30M PRN PRN Reason: SBP > 160 mmHg Insulin Aspart (Novolog Insulin Correctional Sugar Inj) 0 unit SQ ACHS [facility]; Protocol Last Admin: 09/09/18 17:03 Dose: Not Given Lactulose (Lactulose Liq) 30 ml PO DAILY PRN PRN Reason: SEVERE CONSITIPATION Methotrexate (Rheumatrex) 15 mg PO Fr [facility] Last Admin: 09/07/18 09:30 Dose: 15 mg Ondansetron HCl (Zofran Inj) 4 mg IV.PUSH Q6H PRN PRN Reason: NAUSEA OR VOMITING Ondansetron HCl (Zofran Inj) 4 mg IV.PUSH ONCE PRN PRN Reason: NAUSEA OR VOMITING Sacubitril/Valsartan (Entresto 24 Mg/26 Mg Tablet) 1 tab PO BID [facility] Last Admin: 09/09/18 09:35 Dose: 1 tab Senna/Docusate Sodium ([place]-Colace) 1 tab PO BID [facility] Last Admin: 09/09/18 09:36 Dose: Not Given Sennosides (Senokot) 17.2 mg PO Q12H PRN PRN Reason: Moderate Constipation Sodium Chloride (Ns Flush) 2 ml IV.FLUSH BID [facility] Last Admin: 09/09/18 09:36 Dose: 2 ml Sodium Chloride (Ns Flush) 2 ml IV.FLUSH PRN PRN PRN Reason: FLUSH AFTER USING IV ACCESS Vitamin D (Vitamin D3) 1,000 unit PO DAILY [facility] Last Admin: 09/09/18 09:35 Dose: 1,000 unit Warfarin Sodium (Coumadin) 2.5 mg PO DAILY@1600 [facility] Last Admin: 09/09/18 17:03 Dose: 2.5 mg Allergies Allergy/AdvReac Type Severity Reaction Status Date / Time gemfibrozil Allergy Redness of Verified 08/29/18 00:15 Skin heparin AdvReac Severe Other Verified 09/05/18 11:25 Home Medications Medication Instructions Recorded Confirmed Type aspirin 81 mg PO DAILY 08/29/18 08/29/18 History cholecalciferol (vitamin D3) 1,000 unit PO DAILY 08/29/18 08/29/18 History [Vitamin D3] diltiazem HCl 120 mg PO DAILY 08/29/18 08/29/18 History fenofibrate PO DAILY 08/29/18 History folic acid 1 mg PO DAILY 08/29/18 08/29/18 History furosemide 20 mg PO DAILY 08/29/18 08/29/18 History lisinopril 20 mg PO DAILY 08/29/18 08/29/18 History metformin 500 mg PO QPM 08/29/18 08/29/18 History methotrexate sodium 15 mg PO FR 08/29/18 08/29/18 History umeclidinium-vilanterol [Anoro 1 inh INHALATION Q24H 08/29/18 08/29/18 History Ellipta] warfarin 2.5 mg PO DAILY 08/29/18 08/29/18 History Physical Exam Vital signs: Vital Signs 09/08/18 20:00 09/08/18 21:00 09/08/18 22:00 Temperature Pulse Rate 78 78 80 Respiratory Rate Blood Pressure Pulse Oximetry 09/08/18 23:00 09/09/18 00:00 09/09/18 01:00 Temperature 98.8 F Pulse Rate 82 87 83 Respiratory Rate 16 Blood Pressure 133/78 Pulse Oximetry 100 09/09/18 02:00 09/09/18 03:00 09/09/18 04:00 Temperature 98.6 F Pulse Rate 80 78 80 Respiratory Rate 15 Blood Pressure 138/81 Pulse Oximetry 99 09/09/18 05:00 09/09/18 06:00 09/09/18 07:00 Temperature 98.2 F Pulse Rate 85 71 79 Respiratory Rate 16 Blood Pressure 141/82 H Pulse Oximetry 97 09/09/18 08:00 09/09/18 09:00 09/09/18 10:00 Temperature Pulse Rate 82 80 78 Respiratory Rate Blood Pressure Pulse Oximetry 09/09/18 11:00 09/09/18 12:00 09/09/18 13:00 Temperature 98.4 F Pulse Rate 79 78 78 Respiratory Rate 16 Blood Pressure 119/66 Pulse Oximetry 97 09/09/18 14:00 09/09/18 15:00 09/09/18 15:16 Temperature 98.4 F Pulse Rate 82 79 80 Respiratory Rate 15 Blood Pressure 119/66 Pulse Oximetry 99 09/09/18 16:00 09/09/18 17:00 09/09/18 18:00 Temperature Pulse Rate 78 78 78 Respiratory Rate Blood Pressure Pulse Oximetry Intake & Output 09/09/18 09/09/18 09/10/18 06:59 18:59 06:59 Intake Total 75 / 75 585 / 585 Balance 75 / 75 585 / 585 Weight 75.5 kg Intake: IV 105 / 105 Novastan Inj 250 MG In NS Inj 105 / 105 247.5 ML @ Per Protocol IV.CONT TITRATE PRN Rx#:[id number] Oral 75 / 75 480 / 480 Other: # Voids 3 3 Date of Last Bowel Movement 09/09/18 # Bowel Movements 2 2 Narrative: GENERAL: Well-developed well-nourished. In no acute distress. NG tube in place. NECK: No carotid bruits. No JVD. CARDIOVASCULAR: Regular rate and rhythm. 1/6 systolic murmur appreciated. Device in place left chest wall, healing. RESPIRATORY: No accessory muscle use. Clear to auscultation. Breath sounds equal bilaterally. MUSCULOSKELETAL: No clubbing or cyanosis. No edema. NEUROLOGICAL: Awake and alert. Normal speech. - Constitutional no acute distress, chronically ill appearing - Routine HEENT Exam Head: Present: normocephalic, CSF rhinorrhea - Routine Neck Exam Present: supple, full ROM, JVD. Absent: carotid bruit - Routine Respiratory Exam Present: CTA bilaterally - Routine Cardiovascular Exam Present: RRR, S1, S2 - Routine Abdominal Exam Present: normoactive bowel sounds - Routine Extremities Exam Present: normal capillary refill - Routine Skin Exam Present: dry, warm - Routine Neurological Exam Present: alert, oriented X3 - Routine Psychiatric Exam Present: normal affect - Urinary Catheter Management Indwelling Urethral Catheter Cath placed during this visit: no Condom Cath placed during this visit: yes Reason for continuing: Not indwelling catheter Insertion date: 09/05/18 Insertion time: 22:00 Results 09/09/18 01:22 09/09/18 01:22 Coagulation 09/08/18 09/08/18 09/09/18 Range/Units 05:08 16:44 01:22 PT 39.3 H D 15.1 H D (9.8-11.6) sec APTT 66.0 H 61.3 H (23.4-31.7) sec 09/09/18 09/09/18 Range/Units 09:42 14:45 PT 56.4 H D 23.9 H D (9.8-11.6) sec APTT (23.4-31.7) sec CBC 09/09/18 Range/Units 01:22 WBC 6.3 (4.0-11.0) th/mm3 RBC 3.84 L (4.50-5.90) mil/mm3 Hgb 12.8 L (13.0-17.0) gm/dL Hct 37.5 L (39.0-51.0) % Plt Count 195 (150-450) th/mm3 Neut # (Auto) 4.1 (1.8-7.7) th/mm3 Lymph # (Auto) 1.3 (1.0-4.8) th/mm3 [place] # (Auto) 0.8 (0.0-0.9) th/mm3 Eos # (Auto) 0.1 (0.0-0.4) th/mm3 Baso # (Auto) 0.0 (0.0-0.2) th/mm3 Comprehensive Metabolic Panel 09/09/18 Range/Units 01:22 Sodium 140 (136-145) meq/L Potassium 3.4 L (3.5-5.1) meq/L Chloride 107 (98-107) meq/L Carbon Dioxide 26.9 (21.0-32.0) meq/L BUN 5 L (7-18) mg/dL Creatinine 0.66 (0.60-1.30) mg/dL Calcium 7.8 L (8.5-10.1) mg/dL Intake and Output 09/09/18 09/09/18 09/09/18 06:59 14:59 22:59 Intake Total 75 / 75 105 / 105 480 / 480 Balance 75 / 75 105 / 105 480 / 480 Intake: IV 105 / 105 Novastan Inj 250 MG In NS Inj 105 / 105 247.5 ML @ Per Protocol IV.CONT TITRATE PRN Rx#:[id number] Oral 75 / 75 480 / 480 Other: # Voids 3 3 Date of Last Bowel Movement 09/09/18 09/09/18 # Bowel Movements 2 2 Weight 75.5 kg Assessment and Plan - Assessment (1) Severe aortic stenosis Code(s): I35.0 - Nonrheumatic aortic (valve) stenosis Status: Acute (2) Congestive heart failure Code(s): I50.9 - Heart failure, unspecified Status: Acute (3) Chronic kidney disease Code(s): N18.9 - Chronic kidney disease, unspecified Status: Acute (4) COPD (chronic obstructive pulmonary disease) Code(s): J44.9 - Chronic obstructive pulmonary disease, unspecified Status: Acute (5) Atrial fibrillation Code(s): I48.91 - Unspecified atrial fibrillation Status: Acute - Plan Severe aortic valve stenosis Status post transcatheter valve replacement. TAVR Acute systolic congestive heart failure Severely reduced left ventricular systolic function. Continue Entresto and Coreg. Decreased Lasix as he seems well compensated. Renal function normal. Atrial fibrillation Patient has tachycardia bradycardia syndrome. s/p BiVICD. Tolerating beta- meg. Cardiomyopathy, nonischemic Cardiac catheterization showed only mild nonobstructive coronary artery disease. Mitral regurgitation improved after trans-catheter to valve replacement. Follow-up limited transthoracic echocardiogram today. Continue guideline directed medical therapy. Pulmonary embolism On Coumadin. Goal INR 2-3. Bridging with Argatroban pharmacy dosing Coumadin. Continue with physical rehabilitation. Plan for inpatient rehabilitation Case management assistance for disposition Possible transfer to inpatient rehab once INR is therapeutic.
[2018-09-10 05:15] LABS: Activated Partial Thrombo Time 34.3 sec (23.4-31.7); Prothrombin Time 20.1 sec (9.8-11.6)
[2018-09-10] MEDS: Folic Acid 1 MG Tablet PO SCH (08:39)
[2018-09-10] MEDS: Insulin NovoLOG Aspart Correctional Sugar Inj SQ SCH ×3 (08:39→16:17)
[2018-09-10] MEDS: Senna/Docusate Sodium 8.6/50 MG Tablet PO SCH (08:39)
[2018-09-10] MEDS: Furosemide 20 MG Tablet PO SCH (08:39)
[2018-09-10] MEDS: Ferrous Sulfate 325 MG Tablet PO SCH ×2 (12:17→16:16)
--- NOTE | 2018-09-10 16:01 | P.PNCA ---
Subjective Interval history: no events Medications and Allergies Active Medications: Active Medications Acetaminophen (Tylenol) 650 mg PO Q6H PRN PRN Reason: PAIN 1-10 AND/OR FEVER >101F Last Admin: 09/05/18 17:20 Dose: 650 mg Al Hydroxide/Mg Hydroxide (Milk Of Magnesia Liq) 30 ml PO Q12H PRN PRN Reason: Mild Constipation Albuterol (Duoneb Neb (Prn)) 1 ampul NEB Q2HR NEB PRN PRN Reason: WHEEZING Aspirin (Ecotrin) 81 mg PO DAILY [facility] Last Admin: 09/10/18 08:39 Dose: 81 mg Bisacodyl (Dulcolax Supp) 10 mg RECTAL DAILY PRN PRN Reason: SEVERE CONSITIPATION Carvedilol (Coreg) 3.125 mg PO BID [facility] Last Admin: 09/10/18 08:39 Dose: 3.125 mg Clonidine HCl (Catapres) 0.2 mg PO Q6H PRN PRN Reason: SBP > 160 mmHg Dextrose (D50w Vial) 50 ml IV.PUSH UNSCH PRN PRN Reason: PER HYPOGLYCEMIA PROTOCOL Last Admin: 08/29/18 17:57 Dose: 50 ml Ferrous Sulfate (Ferosul) 325 mg PO BID@1200,1700 [facility] Last Admin: 09/10/18 12:17 Dose: 325 mg Folic Acid (Folic Acid) 1 mg PO DAILY [facility] Last Admin: 09/10/18 08:39 Dose: 1 mg Furosemide (Lasix) 20 mg PO DAILY [facility] Last Admin: 09/10/18 08:39 Dose: 20 mg Glucagon (Glucagon Inj) 1 mg OTHER PRN PRN PRN Reason: for Hypoglycemia Protocol Hydralazine HCl (Apresoline Inj) 10 mg IV.PUSH Q30M PRN PRN Reason: SBP > 160 mmHg Insulin Aspart (Novolog Insulin Correctional Sugar Inj) 0 unit SQ [facility]; Protocol Last Admin: 09/10/18 12:13 Dose: Not Given Lactulose (Lactulose Liq) 30 ml PO DAILY PRN PRN Reason: SEVERE CONSITIPATION Methotrexate (Rheumatrex) 15 mg PO Fr [facility] Last Admin: 09/07/18 09:30 Dose: 15 mg Ondansetron HCl (Zofran Inj) 4 mg IV.PUSH Q6H PRN PRN Reason: NAUSEA OR VOMITING Ondansetron HCl (Zofran Inj) 4 mg IV.PUSH ONCE PRN PRN Reason: NAUSEA OR VOMITING Sacubitril/Valsartan (Entresto 24 Mg/26 Mg Tablet) 1 tab PO BID [facility] Last Admin: 09/10/18 08:39 Dose: 1 tab Senna/Docusate Sodium (Georgiana-Colace) 1 tab PO BID [facility] Last Admin: 09/10/18 08:39 Dose: Not Given Sennosides (Senokot) 17.2 mg PO Q12H PRN PRN Reason: Moderate Constipation Sodium Chloride (Ns Flush) 2 ml IV.FLUSH BID [facility] Last Admin: 09/10/18 08:39 Dose: 2 ml Sodium Chloride (Ns Flush) 2 ml IV.FLUSH PRN PRN PRN Reason: FLUSH AFTER USING IV ACCESS Vitamin D (Vitamin D3) 1,000 unit PO DAILY [facility] Last Admin: 09/10/18 08:39 Dose: 1,000 unit Warfarin Sodium (Coumadin) 2.5 mg PO DAILY@1600 [facility] Last Admin: 09/09/18 17:03 Dose: 2.5 mg Allergies Allergy/AdvReac Type Severity Reaction Status Date / Time gemfibrozil Allergy Redness of Verified 08/29/18 00:15 Skin heparin AdvReac Severe Other Verified 09/05/18 11:25 Home Medications Medication Instructions Recorded Confirmed Type aspirin 81 mg PO DAILY 08/29/18 08/29/18 History cholecalciferol (vitamin D3) 1,000 unit PO DAILY 08/29/18 08/29/18 History [Vitamin D3] fenofibrate PO DAILY 08/29/18 History folic acid 1 mg PO DAILY 08/29/18 08/29/18 History furosemide 20 mg PO DAILY 08/29/18 08/29/18 History lisinopril 20 mg PO DAILY 08/29/18 08/29/18 History metformin 500 mg PO QPM 08/29/18 08/29/18 History methotrexate sodium 15 mg PO FR 08/29/18 08/29/18 History umeclidinium-vilanterol [Anoro 1 inh INHALATION Q24H 08/29/18 08/29/18 History Ellipta] warfarin 2.5 mg PO DAILY 08/29/18 08/29/18 History Physical Exam Vital signs: Vital Signs 09/09/18 17:00 09/09/18 18:00 09/09/18 19:00 Temperature 98.0 F Pulse Rate 78 78 79 Respiratory Rate 18 Blood Pressure 137/82 Pulse Oximetry 98 09/09/18 20:00 09/09/18 21:00 09/09/18 22:00 Temperature Pulse Rate 79 80 80 Respiratory Rate Blood Pressure Pulse Oximetry 09/09/18 23:00 09/10/18 00:00 09/10/18 01:00 Temperature 98.2 F Pulse Rate 80 80 85 Respiratory Rate 17 Blood Pressure 125/79 Pulse Oximetry 99 09/10/18 02:00 09/10/18 03:00 09/10/18 04:00 Temperature 98.1 F Pulse Rate 82 81 82 Respiratory Rate 17 Blood Pressure 128/80 Pulse Oximetry 99 09/10/18 05:00 09/10/18 05:59 09/10/18 07:00 Temperature 97.7 F Pulse Rate 79 80 80 Respiratory Rate 18 Blood Pressure 108/60 Pulse Oximetry 94 L 09/10/18 08:00 09/10/18 09:00 09/10/18 10:00 Temperature Pulse Rate 79 80 80 Respiratory Rate Blood Pressure Pulse Oximetry 09/10/18 11:00 09/10/18 12:00 09/10/18 13:00 Temperature 97.9 F Pulse Rate 80 80 79 Respiratory Rate 18 Blood Pressure 101/61 Pulse Oximetry 96 09/10/18 14:00 09/10/18 15:00 09/10/18 15:59 Temperature 98.2 F Pulse Rate 80 79 80 Respiratory Rate 18 Blood Pressure 107/65 Pulse Oximetry 96 Intake & Output 09/09/18 09/10/18 09/10/18 18:59 06:59 18:59 Intake Total 585 / 585 60 / 60 Balance 585 / 585 60 / 60 Weight 76 kg Intake: IV 105 / 105 Novastan Inj 250 MG In NS Inj 105 / 105 247.5 ML @ Per Protocol IV.CONT TITRATE PRN Rx#:[id number] Oral 480 / 480 60 / 60 Other: # Voids 3 # Incontinent Voids 2 Date of Last Bowel Movement 09/09/18 09/10/18 # Bowel Movements 2 - Constitutional no acute distress - Routine HEENT Exam Head: Present: normocephalic, atraumatic Eye: Present: EOMI, PERRL - Routine Neck Exam Absent: JVD - Routine Respiratory Exam Present: CTA bilaterally - Routine Cardiovascular Exam Present: RRR, murmur - Routine Abdominal Exam Present: soft, normoactive bowel sounds - Routine Extremities Exam Absent: edema - Routine Skin Exam Absent: erythema - Routine Neurological Exam Present: oriented X3, CN II-XII intact. Absent: sensory deficit, motor deficit - Urinary Catheter Management Indwelling Urethral Catheter Cath placed during this visit: no Condom Cath placed during this visit: yes Reason for continuing: Not indwelling catheter Insertion date: 09/05/18 Insertion time: 22:00 Results 09/09/18 01:22 09/09/18 01:22 Coagulation 09/08/18 09/09/18 09/09/18 Range/Units 16:44 01:22 09:42 PT 15.1 H D 56.4 H D (9.8-11.6) sec APTT 61.3 H (23.4-31.7) sec 09/09/18 09/10/18 Range/Units 14:45 04:36 PT 23.9 H D 20.1 H (9.8-11.6) sec APTT 34.3 H D (23.4-31.7) sec CBC 09/09/18 Range/Units 01:22 WBC 6.3 (4.0-11.0) th/mm3 RBC 3.84 L (4.50-5.90) mil/mm3 Hgb 12.8 L (13.0-17.0) gm/dL Hct 37.5 L (39.0-51.0) % Plt Count 195 (150-450) th/mm3 Neut # (Auto) 4.1 (1.8-7.7) th/mm3 Lymph # (Auto) 1.3 (1.0-4.8) th/mm3 [place] # (Auto) 0.8 (0.0-0.9) th/mm3 Eos # (Auto) 0.1 (0.0-0.4) th/mm3 Baso # (Auto) 0.0 (0.0-0.2) th/mm3 Comprehensive Metabolic Panel 09/09/18 Range/Units 01:22 Sodium 140 (136-145) meq/L Potassium 3.4 L (3.5-5.1) meq/L Chloride 107 (98-107) meq/L Carbon Dioxide 26.9 (21.0-32.0) meq/L BUN 5 L (7-18) mg/dL Creatinine 0.66 (0.60-1.30) mg/dL Calcium 7.8 L (8.5-10.1) mg/dL Intake and Output 09/10/18 09/10/18 09/10/18 06:59 14:59 22:59 Intake Total 60 / 60 Balance 60 / 60 Intake: Oral 60 / 60 Other: # Incontinent Voids 2 Date of Last Bowel Movement 09/10/18 09/10/18 Weight 76 kg Assessment and Plan - Plan Severe aortic valve stenosis Status post transcatheter valve replacement. TAVR Acute systolic congestive heart failure Severely reduced left ventricular systolic function. Continue Entresto and Coreg. Decreased Lasix as he seems well compensated. Renal function normal. Atrial fibrillation Patient has tachycardia bradycardia syndrome. s/p BiVICD. Tolerating beta- meg. Cardiomyopathy, nonischemic Cardiac catheterization showed only mild nonobstructive coronary artery disease. Mitral regurgitation improved after trans-catheter to valve replacement. Follow-up limited transthoracic echocardiogram today. Continue guideline directed medical therapy. Pulmonary embolism On Coumadin. Goal INR 2-3. Bridging with Argatroban pharmacy dosing Coumadin. Continue with physical rehabilitation. Plan for inpatient rehabilitation Case management assistance for disposition Possible transfer to inpatient rehab once INR is therapeutic.
== END 2018-09-11 13:41 ==
LOC: HCVI 21:50 → HCPC 08-29 12:07 → HCVI 09-05 06:51 → HCPC 09-07 16:40
PROVIDERS: ADMIT Hospitalist; ATTEND Hospitalist
PROC: TAVRHYB (ICD-10-PCS; 2018-09-05 10:38)
DX: L40.9 Psoriasis, unspecified; I42.8 Other cardiomyopathies; N20.0 Calculus of kidney; I25.10 Atherosclerotic heart disease of native coronary artery without angina pectoris; R91.1 Solitary pulmonary nodule; I71.4 Abdominal aortic aneurysm, without rupture; Z79.84 Long term (current) use of oral hypoglycemic drugs; J44.9 Chronic obstructive pulmonary disease, unspecified; I49.5 Sick sinus syndrome; Z00.6 Encounter for examination for normal comparison and control in clinical research program; I26.99 Other pulmonary embolism without acute cor pulmonale; N18.9 Chronic kidney disease, unspecified; Z79.01 Long term (current) use of anticoagulants; Z79.899 Other long term (current) drug therapy; Z87.442 Personal history of urinary calculi; Z86.711 Personal history of pulmonary embolism; I47.2 Ventricular tachycardia; Z95.3 Presence of xenogenic heart valve; G93.49 Other encephalopathy; D75.82 Heparin induced thrombocytopenia (HIT); I50.23 Acute on chronic systolic (congestive) heart failure; R13.12 Dysphagia, oropharyngeal phase; Z95.810 Presence of automatic (implantable) cardiac defibrillator; I48.91 Unspecified atrial fibrillation; E87.0 Hyperosmolality and hypernatremia; F05 Delirium due to known physiological condition; I08.3 Combined rheumatic disorders of mitral, aortic and tricuspid valves; E11.22 Type 2 diabetes mellitus with diabetic chronic kidney disease; Z79.82 Long term (current) use of aspirin